=== PATIENT | male | born 1980 | race Caucasian/White ===

== ENCOUNTER 2016-10-28 11:31 | Inpatient (IN) | payer OTHER, MEDICARE ==
[~2016-10-28] VITALS: Ht 172.7 cm; Wt 98.4 kg
[~2016-10-28 11:31] MED LIST: ENULOSE 2020 GM/30 M PO; FOLIC ACID 1 MG PO; Nasal NAS; PRILOSEC20 MG PO; PRILOSEC40 MG PO; REGLAN10 MG PO; Theragran Vitamins PO; VITAMIN B1100 MG PO
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
[2016-10-28 12:32] LABS: ABSOLUTE BASOPHIL COUNT 0 /CUMM (0.0-0.2); ABSOLUTE EOSINOPHIL COUNT 0.2 /CUMM (0.0-0.7); ABSOLUTE GRANULOCYTE CT 3.4 /CUMM (1.4-6.5); ABSOLUTE LYMPH COUNT 1.5 /CUMM (1.2-3.4); ABSOLUTE MONOCYTE COUNT 0.7 /CUMM (0.10-0.60); BASOPHIL % 0.8 % (0.0-2.0); EOSINOPHIL % 2.7 % (0-5); GRANULOCYTE % 58.2 % (42.2-75.2); HEMATOCRIT 45.9 % (42-52); MEAN CORPUSCULAR HGB 34.4 PG (27.0-31.0); MEAN CORPUSCULAR HGB CONC 34.6 G/DL (33.0-37.0); MEAN CORPUSCULAR VOLUME 99.4 FL (80.0-94.0); MEAN PLATELET VOLUME 8.4 FL (7.4-10.4); PLATELET COUNT 115 /CUMM (130-400); RBC DISTRIBUTION WIDTH 14.3 % (11.5-14.5); RED BLOOD CELL CT 4.61 /CUMM (4.70-6.10); WHITE BLOOD CELL COUNT 5.8 /CUMM (4.8-10.8)
[2016-10-28 12:35] LABS: PT 14.3 SEC (9.4-12.5); PTT 36 SEC (25-37)
[2016-10-28 12:37] VITALS: BP 147/74
[2016-10-28 14:25] VITALS: BP 147/71
[2016-10-28] MEDS ORDERED: TRAZODONE HCL50 M1 PO (15:21)
[2016-10-28] MEDS ORDERED: PROZAC20 M2 PO (15:22)
[2016-10-28 16:38] VITALS: BP 139/67
[2016-10-28 18:04] VITALS: BP 152/70
[2016-10-28 20:00] VITALS: BP 147/73
--- NOTE | 2016-10-28 20:28 | ED PSYCH CRISIS CONSULTATION ---
See Addendum Crisis Consult Basic Assessment Date of Consult: 10/28/16 Responsible Person/Accompanied By: Self Insurance Authorization: Insurance #1: Insurance name: MEDICARE A Phone number: Policy number: [id number] Group number: Authorization number: ED Provider: Patient's ED Provider: MARGE RED Primary Care Physician: Patient's PCP: PATIENT HAS NO PRIMARY CARE DR PCP's Phone Number: Current Psychiatrist: Mike Cruz MD Chief Complaint: Sore Throat, Dental Pain," I want to kill myself" Patient's Quote: " I dont want to live anymore" Present Illness: Patient is a 36-year-old male who initally prsented to the E.R. complaining of dental pain. Pt reports that he has had severe dental pain for the past 1.5 weeks and removed the tooth himself using a hammer screwdriver. He reports going to the E.R. x2 for the tooth pain. Pt reports drinking Alcohol to numb the pain in his month. He reports drinking serveral nips of Alcohol about (1) week ago after leaving [facility] in [place], [place]. Pt is currently homeless. Pt reports a history of Alcohol Abuse and Depression and most recently treated at [facility] in [place]. He reports being treated with Prozac and unsure of the dose of the medication. 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 He presents to the E.R. tearful, depressed , sad, hopeless with suicide ideation to kill himself with plan to shoot himself with a gun " I will shoot myself or cut my kneck". Pt reports family history of brother commiting suicide in 2004 and a cousin in 2012 by shooting themselves. He reports having surgery for Cirrhosis of the liver. Patient's Address: [address] [place] [address] Other Phone Number: Who Do You Live With? Patient/Self (Homeless.) Family/Informants Interviewed: cannot be obtained due to (unable to contact father) Allergies - Coded Allergies: shellfish derived (Severe, THROAT SWELLING 10/28/16) latex (PER PT MD TOLD HIM HE MAY BE ALLERGIC TO LATEX 10/28/16) Current Medications - Scheduled Medications Fluoxetine HCl (Prozac) (Unknown Strength) CAPSULE (Unknown Dose) PO DAILY MENTAL HEALTH (Reported) Entered as Reported by MADISON THORNE on 10/28/16 1522 Trazodone HCl (Unknown Strength) TABLET (Unknown Dose) PO QPM SLEEP (Reported ) Entered as Reported by MADISON THORNE on 10/28/16 1521 Laboratory Results: Laboratory Tests 10/28/16 1218: Serum Alcohol 274.0 10/28/16 1218: Anion Gap 18 H, Estimated GFR > 60, BUN/Creatinine Ratio 8.6, Glucose 98, Calcium 8.0 L, Total Bilirubin 3.4 H, AST 151 H, ALT 89 H, Alkaline Phosphatase 90, Total Protein 6.8, Albumin 3.7, Globulin 3.1, Albumin/Globulin Ratio 1.2, Lipase 312 H, PT 14.3 H, INR 1.37 H, APTT 36, CBC w Diff NO MAN DIFF REQ, RBC 4.61 L, MCV 99.4 H, MCH 34.4 H, RDW 14.3, MPV 8.4, Gran % 58.2, Lymphocytes % 26.7, Monocytes % 11.6 H, Eosinophils % 2.7, Basophils % 0.8, Absolute Granulocytes 3.4, Absolute Lymphocytes 1.5, Absolute Monocytes 0.7 H, Absolute Eosinophils 0.2, Absolute Basophils 0, PUBS MCHC 34.6, Urine Opiates Screen < 100.00, Methadone Screen < 40, Barbiturate Screen < 60, Ur Phencyclidine Scrn < 6.00, Amphetamines Screen < 100, U Benzodiazepines Scrn < 85, Urine Cocaine Screen < 50, Urine Cannabis Screen < 5.00, Urinalysis LIGHT H , Urine Color YEL, Urine Clarity CLEAR, Urine pH 7.0, Ur Specific [place] <= 1.005, Urine Protein NEG, Urine Ketones NEG, Urine Nitrite NEG, Urine Bilirubin NEG, Urine Urobilinogen 1.0, Ur Leukocyte Esterase NEG, Ur Microscopic SEDIMENT EXAMINED, Urine RBC RARE, Urine WBC RARE, Ur Epithelial Cells RARE, Urine Hemoglobin TRACE-LYSED H, Urine Glucose NEG (MICHEALMATILDE STRAUSS) Past History Past Medical History Neurological: NONE EENT: NONE Cardiovascular: hypertension Respiratory: NONE Gastrointestinal: lower GI bleed, pancreatitis, umbilical hernia Hepatic: cirrhosis, hepatic encephalopathy Renal: NONE Musculoskeletal: NONE Psychiatric: alcohol dependence, anxiety, depression, substance abuse Endocrine: hypothyroidism Blood Disorders: NONE Cancer(s): 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 Psychiatric Treatment History Psych Treatment Psychiatric Treatment Yes Inpatient Treatment No Outpatient Treatment Yes ([facility] [place] Location of Treatment [place] Reason for Treatment Depression and Alcohol. Dates of Treatment 08/03 to 11/04 Response to Treatment poor Diagnosis by History: Depression Unpecified Substance Use/Abuse History Drug Use/Abuse Substances Used/Abused Yes Substance Used/Abused Alcohol First Use 13 year old Last Used today How much used/taken (2) nips How often daily For how long for (1) week Route of use oral Substance Abuse Treatment Substance Abuse Treatment Past Substance Abuse [place] Yes Inpatient Treatment Yes Outpatient Treatment Yes Location of Treatment [place] Reason for Treatment Alcohol and Depression Dates of Treatment 2011 Response to Treatment poor Comments: Pt presents to the E.R. depressed, sad, tearful with thoughts of suicide to kill himself" " I will shoot myself or cut my kneck" (MATILDE SMITH) Current Mental Status Mental Status Orientation: Person, Place, Situation Affect: Depressed, Hopeless, Lonely, Sad Speech: WNL Neuro-vegetative: Appetite Decreased, Energy Decreased Appearance Appearance- Dress/Hygiene: dressed in hospital clothing Behaviors Thought Process: WNL Thought Content: WNL Memory: WNL Insight: Poor SI/HI Risk Assessment Past Suicidal Ideation/Attempts Yes Current Suicidal Ideation/Att Yes Past Homicidal Ideation/Att: No Current Homicidal Ideation/Attempts No Degree of Intent: Made Preparations, Plan, States Intent (" I will shoot myself ") Danger To: Self Gravely Disabled: Lack of Insight, Poor Impulse Control, Poor Judgment Risk Factors: age (under 24/over 65), high anxiety/distress, substance abuse, isolate/no social support, poor impulse control, lives alone, male, limited support Lethality Ratin PTSD Checklist PTSD Score: PTSD Score: Response Value Disturbing memories,thoughts,images of stressful experience? Not at all 1 Disturbing dreams of stressful experience from past? Not at all 1 Suddenly acting/feeling as if reliving stressful experience? Not at all 1 Total 3 PTSD Done? patient declined ED Management Sitter: Yes Restraints: No (MATILDE SMITH) DSM5/PS Stressors/Medical Prob Diagnosis' (DSM 5, Stressors, Medical): Major Depression Unspecified F32.9, Hypertension I10, Alcohol Abuse F10.1 Current GAF: 22 Comments: Pt presents to ER dressed with with plan to shoot self with gun, and Alcohol Abuse (MATILDE SMITH) Departure Disposition Psych Medical Clearance Date: 10/28/16 Medically Cleared at: 1914 Time Started: 1914 Time Ended: 2014 Psychiatrist Consulted: Mike Cruz MD Date Disposition Established: 10/28/16 Time Disposition Established: 2014 Plan for Disposition - Modality: Bed Search Facility: Bed search Rationale for Disposition: Pt presented to the E.R. depressed, sad, tearful, and hopeless with plan to shoot himself with a gun. Referrals PATIENT HAS NO PRIMARY CARE DR (PCP/Family) (MATILDE SMITH) Addendum Addendum Consulted with Dr. Ordoñez pt to be admitted to [facility] for si and depression. (HAMILTON BURGOS,DIANNA)
--- NOTE | 2016-10-28 20:31 | ED PSY CRISIS COLLATERAL NOTE ---
Collateral Note Collateral Note Family/Inform/Jennifer Contacts: This clinician caalled father serveral times with no answer at [phone] provided on te face sheet. Pt reports no other contact with family or friends.
[2016-10-28 22:11] VITALS: BP 150/74
[2016-10-29] VITALS (9 sets, daily range): BP systolic 118–153; BP diastolic 60–90
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
[2016-10-30] VITALS (12 sets, daily range): BP systolic 112–152; BP diastolic 56–80
--- NOTE | 2016-10-30 13:03 | CPS MD/APRN INITIAL ASSE PSYCH ---
Psychiatric Admission Lawn Care Specialist's Note Reviewed: Yes Patient Seen and Examined: Yes Identifying Information: Pt is a 36 year old male. Chief Complaint: As per Crisis, patient stated: " I dont want to live anymore." Reaction to Hospitalization: Patient was found in the unit today asleep in bed, easily arousable to verbal stimuli at approx 10:30am. Calm, and cooperative. History of Present Illness Onset of Illness: As per patient, intermittent suicidal ideation following his brother's suicide in 2003. Alcohol abuse since age 13. Circumstances Leading to Admission: Pt arrived to the ER complaining of dental pain, and told a nurse he was feeling more depressed and had thoughts of hurting himself. Problem(s) Justifying Need for Admission: Suicidal comments in the ER. Self report of depression and past traumas. Past Psychiatric History Past Diagnosis(es)- if any: Depression EtOH abuse. Past Precipitating Factors- if any: Suicides of many family members. Alcoholism common among his family members. Last year spent in [place] [facility], multiple arrests for domestic issues between him and his mother. - Include inpatient and outpatient treatment Treatment History: [facility] IOP in [place] until recently. At this time the patient refuses to sign a disclosure waiver for [facility]. History of Suicide Attempts or Gestures Denies. Substance Abuse History: EtOH abuse since age 13. HX of Cocaine abuse Allergies: Coded Allergies: shellfish derived (Severe, THROAT SWELLING 10/28/16) latex (PER PT MD TOLD HIM HE MAY BE ALLERGIC TO LATEX 10/28/16) Home Med List: Prozac Trazodon - Include any medical condition(s) that may - impact the patient's recovery/remission Past History Medical History Neurological: NONE EENT: NONE Cardiovascular: hypertension Respiratory: NONE Gastrointestinal: lower GI bleed, pancreatitis, umbilical hernia, ESOPHAGEAL VARICES Hepatic: cirrhosis, hepatic encephalopathy Renal: NONE Musculoskeletal: NONE Psychiatric: alcohol dependence, anxiety, depression Endocrine: hypothyroidism Blood Disorders: NONE Cancer(s): NONE 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 Depression common in family. Substance Use: EtOH and polysubstance abuse common in family, including his mother. Suicides: Brother in 2003; Cousin and aunt; Mother at least one attempt. Social History Living Situation: Currently homeless. States he is moving into a new apartment on November 02. Significant Relationships (family/friends): States he has some friends, but no significant supports. Disfunctional relationship with his mother. Education: P2 plumbing license. 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 Legal: Recently released from one year in [place] [facility], currently on probation. Healthly Behaviors Screening Tobacco Screening Tobacco Use from ED Docu: Never used - If tobacco counseling indicated - the following topics are required. - #1 Recognizing dangerous situations. - #2 Coping Skills. - #3 Basic information about quitting. Status of Tobacco Cessation Counseling: N/A B/C NO TOB USE Cessation Med Status: No Tobacco Use last 30d Alcohol Screening - ETOH screen POS if BAL >=80 or Audit-C>= M4/F3 Audit-C Score from Diag Assess: 10 Blood Alcohol Level: Laboratory Tests 10/28 1218 Toxicology Serum Alcohol (<10 MG/DL) 274.0 Alcohol Use Screening Results: Pos per Audit C &/or BAL - If ETOH counseling indicated - the following topics are required. - #1 Express concern about the patient's - drinking at unhealthy levels, include informing - of national norms for moderate drinking: - men <= 14 drinks/week, max 4 drinks/occasion - women <= 7 drinks/week, max 3 drinks/occasion - #2 Providing feedback, including linking alcohol to - negative physical effects (liver injury, hypertension) - negative emotional effects (relationship problems and - depression) - negative occupational consequences (reduced work - performance) - #3 Advising the patient to abstain from alcohol or - to drink below national norms for moderate drinking - (as listed above). Status of ETOH Use Counseling: #1, #2 AND #3 Completed. Metabolic Screening - Screen if on a Neuroleptic Medication - Metabolic screening should include: - Blood Pressure, BMI, Glucose or Hgb A1c, & a - Lipid profile from within the past 365 days. Metabolic Screening ([x]) Not Applicable, patient not on a neuroleptic. OR () Patient on a neuroleptic(s) . Enter below results for Glucose or Hemoglobin A1C, and lipid panel if obtained during the last 365 days. BMI: 33.000 Blood Pressure: 152/80 Laboratory Results (If applicable): Exam and Plan Mental Status Examination Ambulation Status: Ambulates independently with steady gait. Appearance: Disheveled, malodorous. Attitude towards examiner: Calm and cooperative. Psychomotor activity: Within normal limits Behavior: Calm and cooperative Quality of speech: Speech is well articulated, goal directed, average in rate volume and tone. Affect: Congruent Mood: Somewhat sad. Quiet. Suicidal Ideation: Patient denies suicidal ideation at this time. He reports a history of intermittent suicidal ideation. States that in the emergency department his suicidal comments were directly related to his suffering from dental pain. Homicidal Ideation: Denies Hallucinations: Denies Paranoid/Delusional Material: Denies Difficulties with thought organization: Thoughts appeared clear Insight: Fair/poor. Judgment: Poor. Orientation: Alert and oriented to person, place and time. Cognition: Within normal limits Memory Function: Appears within normal limits, not tested. Estimate of intellectual functioning: Below average. Assets/Strengths Patient Identified Assets/Strengths: "I'm reading better." Impression/Plan Impression and Plan: This is a 36-year-old, currently unemployed and homeless man presented to the emergency department complaining of dental pain, and stated to the ER staff that he was suicidal. He has a long history of alcohol abuse, unknown history of cocaine abuse. He has suffered through the suicides of at least 4 close family members, including his brother in 2003. His medical history is significant for pancreatitis, cirrhosis, hepatic encephalopathy, hypertension, and hypothyroidism. Patient states that his last drink of alcohol was just prior to his arrival in the ED. Patient currently being medicated with Lexapro for depression and anxiety, trazodone at night for sleep. Consider mood stabilizer. Ativan taper for EtOH withdrawal. CIWA triggered prn Ativan. Continue to monitor and evaluate. - Include all active medical diagnosis that require tx DSM 5 Diagnosis(es): Major Depression Unspecified I10, Alcohol Abuse F10.1 Rule out mood disorder. - Initial Tx Plan for Active Psych & Medical Conditions Treatment Plan: PLAN: The patient will be monitored on the unit for safety, suicidal ideation, depression, mood stability, alcohol withdrawal. Additional information is needed from collaterals, at this time the patient states that he has no friends or family whom he would invite to a family meeting. Anticipate once clinically stable, that the patient will be discharged to home and family and be referred to IOP. - Factors that would help patient function - in a less restrictive setting. Factors: Alleviation of depression and no longer having suicidal thoughts.
--- NOTE | 2016-10-30 15:04 | History & Physical ---
General Information and HPI MD Statement: I have seen and personally examined VITA LOYD and documented this H&P. The patient is a 36 year old M who presented with a patient stated chief complaint of tooth pain, feeling depressed and wants to hurt himself Source of Information: patient Exam Limitations: no limitations History of Present Illness: 36-year-old male with past medical history as stated and includes hypertension, cirrhosis, hepatic encephalopathy, pink otitis, anxiety, depression who presented with the tooth pain. Apparently patient has been having some tooth issues but unfortunately secondary to not having insurance would not seek any dental care. He tried to put his tooth with a hammer. He presented to the emergency room with the pain and then said that he was feeling depressed and wanted to hurt himself. He is admitted to Inpatient Psychiatry with depression as well as suicidal ideation. He can claims that he's having difficulty urinating. He denies any burning. He still has some tooth pain but not taking any pain medications at present. His LFTs are very abnormal. He denies any nausea, vomiting, fevers or chills. Allergies/Medications Allergies: Coded Allergies: shellfish derived (Severe, THROAT SWELLING 10/28/16) latex (PER PT MD TOLD HIM HE MAY BE ALLERGIC TO LATEX 10/28/16) Home Med list Fluoxetine HCl (Prozac) (Unknown Strength) CAPSULE (Unknown Dose) PO DAILY MENTAL HEALTH (Reported) Trazodone HCl (Unknown Strength) TABLET (Unknown Dose) PO QPM SLEEP (Reported ) Past History Travel History Traveled to [place] past 21 day No Medical History Neurological: NONE EENT: NONE Cardiovascular: hypertension Respiratory: NONE Gastrointestinal: lower GI bleed, pancreatitis, umbilical hernia, ESOPHAGEAL VARICES Hepatic: cirrhosis, hepatic encephalopathy Renal: NONE Musculoskeletal: NONE Psychiatric: alcohol dependence, anxiety, depression Endocrine: hypothyroidism Blood Disorders: NONE Cancer(s): NONE 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 Psychosocial History Where do you live? 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 EENTM: Reports: see HPI. Cardiovascular: Reports: see HPI. Respiratory: Reports: see HPI. GI: Reports: see HPI. Genitourinary: Reports: see HPI. Musculoskeletal: Reports: see HPI. Skin: Reports: see HPI. Neurological/Psychological: Reports: see HPI. Exam & Diagnostic Data Last 24 Hrs of Vital Signs/I&O Vital Signs Date Time Temp Pulse Resp B/P Pulse O2 O2 Flow FiO2 Ox Delivery Rate 10/30 1207 95 152/80 10/30 1206 95 152/80 10/30 1004 86 136/73 10/30 0809 97.8 82 150/79 10/30 0755 97.8 82 150/79 10/30 0547 78 112/56 10/30 0249 72 120/62 10/29 2356 67 118/60 10/29 215 96.3 70 153/90 10/29 2152 96.3 70 153/90 10/29 2009 96.8 72 135/84 10/29 1942 96.8 72 135/84 10/29 1827 97.6 81 139/75 10/29 1640 97.0 76 131/78 10/29 1558 96.8 67 20 149/75 10/29 1539 96.8 67 20 149/75 97 Room Air Intake & Output 10/30 1600 10/30 0800 10/30 0000 Intake Total Output Total Balance Patient 217 lb Weight Physical Exam General Appearance Alert, Oriented X3, Cooperative, No Acute Distress Skin No Rashes, + tattoos HEENT Atraumatic, PERRLA Neck Supple Cardiovascular Regular Rate, Normal S1, Normal S2 Lungs Clear to Auscultation Abdomen Normal Bowel Sounds, Soft, No Tenderness Neurological Exam Findings: Normal Gait, Normal Speech Cranial Nerves II through XII: intact Extremities No Edema Last 24 Hrs of Labs/Ronen: Laboratory Tests 10/28 10/28 1218 1218 Chemistry Sodium (137 - 145 mmol/L) 140 Potassium (3.5 - 5.1 mmol/L) 3.6 Chloride (98 - 107 mmol/L) 100 Carbon Dioxide (22 - 30 mmol/L) 22 Anion Gap (5 - 16) 18 H BUN (9 - 20 mg/dL) 6 L Creatinine (0.7 - 1.2 mg/dL) 0.7 Estimated GFR (>60 ml/min) > 60 BUN/Creatinine Ratio (7 - 25 %) 8.6 Glucose (65 - 99 mg/dL) 98 Calcium (8.4 - 10.2 mg/dL) 8.0 L Total Bilirubin (0.2 - 1.3 mg/dL) 3.4 H AST (17 - 59 U/L) 151 H ALT (21 - 72 U/L) 89 H Alkaline Phosphatase (< 127 U/L) 90 Total Protein (6.3 - 8.2 g/dL) 6.8 Albumin (3.5 - 5.0 g/dL) 3.7 Globulin (1.9 - 4.2 gm/dL) 3.1 Albumin/Globulin Ratio (1.1 - 2.2 %) 1.2 Lipase (23 - 300 U/L) 312 H TSH (0.270 - 4.200 uIU/mL) 1.140 Coagulation PT (9.4 - 12.5 SEC) 14.3 H INR (0.90 - 1.17) 1.37 H APTT (25 - 37 SEC) 36 Hematology CBC w Diff NO MAN DIFF REQ WBC (4.8 - 10.8 /CUMM) 5.8 RBC (4.70 - 6.10 /CUMM) 4.61 L Hgb (14.0 - 18.0 G/DL) 15.9 Hct (42 - 52 %) 45.9 MCV (80.0 - 94.0 FL) 99.4 H MCH (27.0 - 31.0 PG) 34.4 H RDW (11.5 - 14.5 %) 14.3 Plt Count (130 - 400 /CUMM) 115 L MPV (7.4 - 10.4 FL) 8.4 Gran % (42.2 - 75.2 %) 58.2 Lymphocytes % (20.5 - 51.1 %) 26.7 Monocytes % (1.7 - 9.3 %) 11.6 H Eosinophils % (0 - 5 %) 2.7 Basophils % (0.0 - 2.0 %) 0.8 Absolute Granulocytes (1.4 - 6.5 /CUMM) 3.4 Absolute Lymphocytes (1.2 - 3.4 /CUMM) 1.5 Absolute Monocytes (0.10 - 0.60 /CUMM) 0.7 H Absolute Eosinophils (0.0 - 0.7 /CUMM) 0.2 Absolute Basophils (0.0 - 0.2 /CUMM) 0 PUBS MCHC (33.0 - 37.0 G/DL) 34.6 Toxicology Urine Opiates Screen (>2000 NG/ML) < 100.00 Methadone Screen (>300 NG/ML) < 40 Barbiturate Screen (>200 NG/ML) < 60 Ur Phencyclidine Scrn (>25 NG/ML) < 6.00 Amphetamines Screen (>1000 NG/ML) < 100 U Benzodiazepines Scrn (>200 NG/ML) < 85 Urine Cocaine Screen (>300 NG/ML) < 50 Urine Cannabis Screen (>50 NG/ML) < 5.00 Serum Alcohol (<10 MG/DL) 274.0 Urines Urinalysis LIGHT H Urine Color (YEL,AMB,STR) YEL Urine Clarity (CLEAR) CLEAR Urine pH (5.0 - 8.0) 7.0 Ur Specific [place] (1.001 - 1.035) <= 1.005 Urine Protein (NEG,<30 MG/DL) NEG Urine Ketones (NEG) NEG Urine Nitrite (NEG) NEG Urine Bilirubin (NEG) NEG Urine Urobilinogen (0.1 - 1.0 EU/dl) 1.0 Ur Leukocyte Esterase (NEG) NEG Ur Microscopic SEDIMENT EXAMINED Urine RBC (0 - 5 /HPF) RARE Urine WBC (0 - 2 /HPF) RARE Ur Epithelial Cells (NONE,FEW) RARE Urine Hemoglobin (NEG) TRACE-LYSED H Urine Glucose (N MG/DL) NEG Assessment/Plan Assessment: 36-year-old male who has a past medical history significant for cirrhosis, pancreas, alcohol use, anxiety, depression, GI bleed, hepatic encephalopathy who was admitted with depression as well as suicidal ideation. Patient was actively drinking alcohol. He also has some dental issues. Lab work is consistent with very abnormal LFTs. I would repeat the LFTs and check abdominal ultrasound. Patient complains of difficulty urination, I will add Flomax. Patient has been started on multivitamin, folate and thiamine Ativan for alcohol. He has ibuprofen ordered for tooth pain but he has not required any. He has a slightly high blood pressure, he was complaining of some pain therefore it could be secondary to pain. I encouraged him to take the pain medicine as needed. I would monitor his blood pressure for now. I will follow-up on ultrasound as well as his repeat LFTs in the morning. Psych management as per psych. As Ranked By This Provider Problem List: 1. ALCOHOLIC PANCREATITIS 2. Alcoholic cirrhosis 3. Depression 4. Alcohol abuse 5. Depression 6. Cirrhosis of liver 7. Pancreatitis Miscellaneous Miscellaneous Documentation Attending Case Discussed With: Lexi Montes MD Primary Care Physician: PATIENT HAS NO PRIMARY CARE DR Patient sees these Specialists none Level of Patient Care: JESSICA Barksdale
[2016-10-31] VITALS (8 sets, daily range): BP systolic 118–155; BP diastolic 65–86
--- NOTE | 2016-10-31 09:35 | ULTRASOUND REPORT ---
EXAMINATION: US ABDOMEN LIMITED CLINICAL INFORMATION: Abnormal LFTs. COMPARISON: CT abdomen pelvis 07/18/2015 and abdominal ultrasound 06/28/2015 TECHNIQUE: Real-time imaging of the right upper quadrant abdominal viscera. FINDINGS: PANCREAS: Visualized portions of the pancreas are normal in appearance. LIVER: Poor liver penetration, limiting the examination. There is diffusely increased echogenicity, most suggestive of hepatic steatosis. No intrahepatic biliary duct dilatation. GALLBLADDER: The gallbladder is physiologically distended without evidence of stones, sludge, polyps, wall thickening or pericholecystic fluid. COMMON BILE DUCT: Normal in caliber measuring 0.45 cm in diameter. RIGHT KIDNEY: No hydronephrosis. No renal calculi or focal parenchymal lesions. The kidney measures 11.4 cm in maximum dimension. FREE FLUID: None. IMPRESSION: 1. Poor liver penetration, limiting the examination. There is diffusely increased echogenicity, most suggestive of hepatic steatosis. 2. The gallbladder is normal in appearance without evidence of gallstones, gallbladder wall thickening or pericholecystic fluid.
--- NOTE | 2016-10-31 16:56 | CP SOUTH PROGRESS NOTE PSYCH ---
Psych (Inpt) Progress Note Progress Note Progress Note: I discussed this patient's progress to date, current mental status, treatment process in the context of the treatment plan, and discharge planning with staff/ team in the daily morning inpatient team meeting. I also met with the patient myself in individual session. A total of 15 minutes was spent with the patient with more than 50% spent in counseling and/or coordination of care. SUBJECTIVE: "I just needed a dentist." OBJECTIVE: Current Medications Sig/Zafar Start time Last Medication Dose Route Stop Time Status Admin Escitalopram Oxalate 10 MG DAILY 10/30 1000 AC 10/31 PO 0942 Folic Acid 1 MG DAILY 10/29 1806 AC 10/31 PO 0942 Ibuprofen 400 MG 4 TIMES/DAY PRN 10/29 1815 AC 10/30 PO 1338 Lorazepam 1 MG 0800,1300,2200 10/31 0800 AC 10/31 PO 1328 Lorazepam 1 MG Q1 NEEDED PRN 10/29 1815 AC 10/31 PO 1619 Lorazepam 2 MG Q1 NEEDED PRN 10/29 1815 AC PO Lorazepam 1 MG 4 TIMES/DAY 10/29 1804 DC 10/30 PO 10/30 2300 2150 Multivitamins 1 TAB DAILY 10/30 1000 AC 10/31 PO 0942 Tamsulosin HCl 0.4 MG DAILY 10/30 1310 AC 10/31 PO 0942 Thiamine HCl 100 MG DAILY 10/29 180 AC 10/31 PO 0942 Trazodone HCl 50 MG AT BEDTIME NEED.. 10/29 2200 AC PO Laboratory Tests 10/31 10/31 1102 0534 Chemistry Total Bilirubin (0.2 - 1.3 mg/dL) 2.4 H Direct Bilirubin (< 0.4 mg/dL) 1.2 H AST (17 - 59 U/L) 75 H ALT (21 - 72 U/L) 64 Alkaline Phosphatase (< 127 U/L) 91 Ammonia (9 - 30 umol/L) 56 H Total Protein (6.3 - 8.2 g/dL) 5.7 L Albumin (3.5 - 5.0 g/dL) 2.9 L Vital Signs Date Time Temp Pulse Resp B/P Pulse O2 O2 Flow FiO2 Ox Delivery Rate 10/31 1611 104 131/66 10/31 1532 104 131/66 10/31 1210 97 153/74 10/31 1158 97 153/74 10/31 0942 98 155/86 10/31 0848 Room Air 10/31 0749 96.8 98 155/86 10/31 0749 96.8 98 155/86 10/305 98 125/67 10/30 1999 98.2 83 146/74 10/30 1953 98.2 83 146/74 ASSESSMENT: Patient reports doing well, states that his major stressor right now is to find a dentist. He has been mostly isolating in his room, not participating in group activities. He continues to be in need of shower. When I suggested to him that he wash up and change his clothes he said that he would do that "later." States that he has an apartment which he can move into starting on November 02. He has a car here at the hospital, and has keys to the apartment. Patient is amenable to discharge after the weekend on Thursday. CIWA scores have been negative, however the patient has received Ativan once for heart rate above 100. No tremors or diaphoresis noted, he states that he is not having problems with alcohol withdrawal at this time. CIWA [id number] while awake continues. I reviewed the patient's current medications and today's ultrasound, in which she showed very little interest. Depression:0/10; Anxiety:0/10 (with 10 the worst.) Denies suicidal ideation, homicidal ideation, auditory hallucinations, visual hallucinations, paranoid ideation. Patient states and also believes that he will not kill himself. Speech is well articulated, goal-directed, average in rate, volume and tone. The patient understands the risks/benefits/side effects of the medication and is agreeable to continue taking them. PLAN: Anticipate discharge on Thursday. Continue with current management as patient is improving. Continue to provide support and encouragement.
--- NOTE | 2016-10-31 17:37 | SOCIAL WORKER PROG NOTE PSYCH ---
Social Work Progress Note Progress Note Alexis was in bed most of the day. He needed to be prompted up to meet with me. He said he is starting to feel better, but hadn't slept in days. He describes his tooth pain to be so unbearable that it was causing him to not sleep, eat, and he was having difficulty being around people and being in bright lights. His main issue appears to be the pain he is suffering from. He thought that if he got into the hospital, his tooth would be extracted. He said he has tried getting in places to get his tooth pulled, but no one would give him an appt., stating he didn't have insurance. He has Medicare A/B and [employer] [facility]. I told him we could try and help him find a place that would take his insurance. He talked about starting to drink more because he couldn't take the pain. He was drinking about a pint or a 6 pack. He didn't seem too sure. He has some involvement with and has been in rehab in the past. Last placement was [facility] a couple of years ago. 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 He didn't want to get into the details of why other than stating it was for things that happened with his Mom. His Mother and him do not have a good relationship, but he states that's not what is bothering him the most at this time. He identifies some work stressors and the tooth pain as the most significant issues. He has an apartment secured in [place]. He reports that it is all paid for and he can move in after the . He is open to going to our [facility] evening track.
[2016-11-01] VITALS (7 sets, daily range): BP systolic 125–148; BP diastolic 64–76
--- NOTE | 2016-11-01 15:04 | CP SOUTH PROGRESS NOTE PSYCH ---
Psych (Inpt) Progress Note Progress Note Include the following elements, when applicable: Involvement in the active treatment of the patient with behavioral observations of the patient and the patient's response to the treatment. Review of the ongoing treatment process in the context of the treatment plan. Indication of how multi-disciplinary staff members are carrying out the treatment plan. Plans for future interventions and recommendations for revision of the treatment plan. Liaison with other physicians/providers. Progress Note: Stated that he is fine and that his tooth pain is somewhat better. happy that he found out he has insurance and planning on getting to dentist and oral surgeon on discharge to manage his sx. Stated that he didnt mean to threaten suicide. Minimizing circumstances surrounding his admission, past hx of tx. Isolative in room. Sleeping well overall. Stated that he is not interested in calling family, or interacting w/ peers or staff on the unit. MSE: Young man, lying in bed, did not want to get out. Well related overall. No psychomotor agitation/slowing. Speech wnl. Good eye contact. Mood is neutral and affect is full. Thought process is linear. No delusions elicited. Denied suicidal thoughts. Denied hallucinations. Not distressed; guarded or otherwise presenting w/ severe depressive or any psychotic sx; but is mildly anhedonic and nonchalant, isolative. Insight fair and judgment fair. A: 36 y/o man w/ hx alcohol use (significant w/ comorbid complications pancreatitis, cirrhosis, enceph, HTN); admitted after he made suicidal statements in context of severe pain and deprssive sx. Has significant alcohol use problem, and significant medical problems which are chronic risk factors for him. Remains isolative and mildly withdrawn. Plan: Continue current plan of care. Monitor withdrawal sx. No acute issues currently. Future oriented, well related and anticipate d/c Thursday this week.
--- NOTE | 2016-11-02 10:45 | CP SOUTH PROGRESS NOTE PSYCH ---
Psych (Inpt) Progress Note Progress Note Include the following elements, when applicable: Involvement in the active treatment of the patient with behavioral observations of the patient and the patient's response to the treatment. Review of the ongoing treatment process in the context of the treatment plan. Indication of how multi-disciplinary staff members are carrying out the treatment plan. Plans for future interventions and recommendations for revision of the treatment plan. Liaison with other physicians/providers. Progress Note: Stated that at night time he is not sleeping; but he is in bed all day time. Encouraged him to get out of bed during the day time; discussed sleep hygiene. Irritated about being here, stated that he just needs to get his tooth fixed. Sleeping excessively, appetite normal. No other issues. MSE: Young man, poor hygiene and grooming. Somnolent initially then awake and alert; w/o psychomotor slowing. Speech wnl. Fair eye contact. Mood is neutral and affect is full. Nonchalant, withdrawn somewhat. Thought process is linear. No delusions elicited. Denied suicidal thoughts, stating he was just in so much pain last time when he threatened suicide. Denied hallucinations, stated last time he was hallucinating was when was 1st dx w/ cirrhosis. Isolative in room, stated that he doesnt need to interact w/ peers. Insight fair and judgment fair. A: 36 y/o man w/ hx alcohol use (significant w/ comorbid complications pancreatitis, cirrhosis, enceph, HTN); admitted after he made suicidal statements in context of severe pain and deprssive sx. Has significant alcohol use problem, and significant medical problems which are chronic risk factors for him. Remains isolative and mildly withdrawn. Plan: Continue current plan of care. No acute issues currently. Educated about sleep hygiene. Anticipate d/c Thursday this week.
[2016-11-02 11:49] VITALS: BP 139/71
[2016-11-02 12:18] VITALS: BP 139/71
[2016-11-02 16:08] VITALS: BP 131/60
[2016-11-02 16:09] VITALS: BP 131/60
[2016-11-02 19:46] VITALS: BP 137/75
[2016-11-02 19:50] VITALS: BP 137/75
--- NOTE | 2016-11-02 20:42 | DISCHARGE SUMMARY REPORT-PSYCH ---
See Addendum Visit Information Visit Dates/Diagnosis' Admission Date: 10/29/16 Discharge Date: 11/03/16 Reason for Admission: Pt arrived to the ER complaining of dental pain, and told a nurse he was feeling more depressed and had thoughts of hurting himself. Psy Discharge Primary Diag: Major Depressive d/o, recurrent, severe. Psy Discharge Secondary Diag: Rule out mood disorder. ETOH use d/o, severe; HTN; Pancreatitis; cirrhosis; hx of hepatic encephalopathy; hx of lower GI bleed; hx of esophageal varices; umbilical hernia. Hospital Course Significant Lab Findings: Lab Ammonia 56 umol/L H 11/04/16 0609 Lab ALT 64 U/L 10/31/16 0534 AST 75 U/L H 10/31/16 0534 Albumin 2.9 g/dL L 10/31/16 0534 Ammonia 56 umol/L H 10/31/16 1102 Anion Gap 18 H 10/28/16 1218 BUN 6 mg/dL L 10/28/16 1218 Calcium 8.0 mg/dL L 10/28/16 1218 Creatinine 0.7 mg/dL 10/28/16 1218 Direct Bilirubin 1.2 mg/dL H 10/31/16 0534 Estimated GFR > 60 ml/min 10/28/16 1218 Lipase 312 U/L H 10/28/16 1218 TSH 1.140 uIU/mL 10/28/16 1218 Total Bilirubin 2.4 mg/dL H 10/31/16 0534 Total Protein 5.7 g/dL L 10/31/16 0534 INR 1.37 H 10/28/16 1218 PT 14.3 SEC H 10/28/16 1218 MCH 34.4 PG H 10/28/16 1218 MCV 99.4 FL H 10/28/16 1218 Monocytes % 11.6 % H 10/28/16 1218 Plt Count 115 /CUMM L 10/28/16 1218 RBC 4.61 /CUMM L 10/28/16 1218 Serum Alcohol 274.0 MG/DL 10/28/16 1218 Course Complications: The patient was noted to have elevated ammonia level, and was treated with lactulose. He will follow up with PCP. An abdominal ultrasound was performed for elevated LFTs. Please see Dr. Sandoval's note for further information. Consultations: The patient was seen for admission history and physical by Dr. Montes. Please refer to her note for additional information. Allergies: Coded Allergies: shellfish derived (Severe, THROAT SWELLING 10/28/16) latex (PER PT MD TOLD HIM HE MAY BE ALLERGIC TO LATEX 10/28/16) Hospital Course/TX Response: The patient was monitored on the unit for safety, depression, suicidal ideation, and EtOH withdrawal. He participated in multimodal treatments on the unit. He was medicated with Lexapro for depression and anxiety, which was well tolerated to good effect. He was offered Trazodone at bedtime for sleep, which he declined to take while here. He was medicated with an Ativan taper to discontinuation for alcohol withdrawal, which was well tolerated, to good effect. He declined a family meeting, stating that he had no one who he wished to invite. Today, the day of discharge, he reports he is doing well, offers no complaints today. Alert and oriented to person, place, time and situation. He is calm, cooperative and logical. Ambulates with steady gait. We reviewed his discharge instructions today, including follow-up medical appointments, which he said he would attend. States he feels safe and ready for discharge home. We reviewed his lab results including ammonia, patient states that he will continue to take lactulose once daily as per Dr. Montes, and follow up next week with primary care. Depression:0/10; Anxiety:0/10 (with 10 the worst.) Denies suicidal ideation, homicidal ideation, auditory hallucinations, visual hallucinations, paranoid ideation. Patient states and also believes that he will not kill himself. States he was not really suicidal when he arrived in the emergency department, but made suicidal statements in the context of severe dental pain. Today he says that his dental pain is much better, and is looking forward to following up with a dentist at the clinic at [facility]. Speech is well articulated, goal-directed, average in rate, volume and tone. The patient understands the risks/benefits/side effects of the medication and is agreeable to continue taking them. Patient reports tolerating his medications well, without complaint. States he feels safe and ready for discharge. Discharge HBIPS - Tobacco Use Treatment Offered Post DC Medications Offered: NA-No Tob Use >30 days Post DC Tobacco Treatment Plan: NA-No Tobacco use >30days - EtOH/Drug Use D/O Treatment Offered Post DC Medications Offered: Ref Med EtOH/Drug Use D/O Post DC EtOH/SubAbuse TX Plan: Other SubAbuse/Dual Pgm ([facility]) Program Appt Date: 11/04/16 Program Appt Time: 1200 (walk in from 9am - 2pm.) Metabolic Screening - Screen if on a Neuroleptic Medication - Metabolic screening should include: - Blood Pressure, BMI, Glucose or Hgb A1c, & a - Lipid profile from within the past 365 days. Metabolic Screening ([x]) Not Applicable, patient not on a neuroleptic. OR () Patient on a neuroleptic(s) . Enter below results for Glucose or Hemoglobin A1C, and lipid panel if obtained during the last 365 days. BMI: 33.000 Blood Pressure: 128/79 Laboratory Results (If applicable): Discharge Instructions General Discharge Information Discharge Medications: Discharge Medications- (Dose, route, freq, indication): HOME MEDICATION LIST START taking these NEW Home Medications: Ibuprofen Dose: ORAL, EVERY 4 HOURS Qty: 56 Called in to (Ibuprofen) 400 MG 400 Milligram NEEDED as needed for PAIN Refills: 0 Pharm 1 TABLET Last Taken:10/30/16 Time:1330 Escitalopram Oxalate Dose: ORAL, DAILY for Qty: 14 Called in to (Lexapro) 10 MG 10 Milligram DEPRESSION Refills: 0 Pharm 1 TABLET Last Taken:11/04/16 Time:0850 Trazodone HCl Dose: ORAL, AT BEDTIME for Qty: 14 Called in to (Trazodone HCl) 50 50 Milligram DEPRESSION AND SLEEP Refills: 0 Pharm 1 MG TABLET not taken in hospital Multivitamin (One Dose: ORAL, DAILY for Qty: 30 Called in to Daily Multivitamin) 1 Tablet SUPPLEMENT Refills: 0 Pharm 1 1 EACH TABLET Last Taken:11/04/16 Time:0850 Tamsulosin HCl Dose: ORAL, DAILY for Urinary Qty: 14 Called in to (Flomax) 0.4 MG 0.4 Milligram Flow Refills: 0 Pharm 1 CAP.ER.24H Last Taken:11/04/16 Time:0850 Lactulose Dose: ORAL, DAILY for HIGH Qty: 7 Called in to (Lactulose) 20 GRAM/ 20 Gram AMMONIA Refills: 0 Pharm 1 30 ML SOLUTION Last Taken:11/04/16 Time:0850 STOP taking these DISCONTINUED Home Medications: Fluoxetine HCl (Prozac) Dose: ORAL, DAILY for MENTAL HEALTH (Unknown Strength) CAPSULE Unknown Dose Reason Stopped: Changed to different med 1: [facility] [place], [place] [id number] [facility] [id number] [place], [place] [id number] Multiple Neuroleptics: (x) Not Applicable OR Document below three failed attempts at monotherapy, or a plan to taper to monotherapy, or augmentation of Clozapine. () Patient's Diet: Regular Patient's Activity: No restrictions. DC Disposition: Patient is going home to his new apartment, where he lives on his own. Recommendations: Maintain sobriety. Follow up with primary care, [facility], GI, and dental clinic. Referred To: Post Discharge Referrals Provider Referral Referred To: Александр Marino MD [address] [place] [address] Provider Referral Service Date: 11/04/16 Referred To: [[facility]] Notes: [facility] [address] [place], [place] Walk in Intake appointment today between 9am and 2pm. Provider Referral Service Date: 11/10/16 Referred To: [[facility]] Notes: Dr. Fried - Primary Care [address] [place] [address] Dr [place] [phone] Appointment on 11/10/2016 at 8:00am Provider Referral Referred To: [[facility]] Notes: [facility] [address] [place] [phone] Copies To: DIEGO BERMUDEZ,ALESHIA Villar
[2016-11-03 07:41] VITALS: BP 133/68
[2016-11-03 07:51] VITALS: BP 133/68
--- NOTE | 2016-11-03 11:44 | SOCIAL WORKER PROG NOTE PSYCH ---
Social Work Progress Note Progress Note Met with Rick this morning, with Iam Lane APRN. I am covering for Fabiana Coates LCSW today. Lisa was in bed, but got up and met with us. He stated he has no SI/HI, no psychosis. He is eager to get back to work, and agreed to follow-up with [facility]. Expected discharge is . 11/04/16. Lisa is interested in follow-up with [facility] in [place]. He was at [facility] in [place] recently, and feels that may be best to attend their program (in [place]). [facility] has a "walk-in " intake . 11/04/16 between 9am and 2pm. Lisa was concerned about listing his diagnosis of alcohol use on his W10, and his minesweeping officer "finding out" about his relapse. Encouraged lisa to stay sober and attend [facility], AA meetings as the best course of action to get his probation issues resolved. Insight and judgement is poor. Lisa did state he is worried he will have to go back to intermediate. He wants a letter stating he was at the hospital upon discharge. [facility] Obtained [facility] appointment for 11/10/[address] Hope. Also, infomred Lisa he can go to [facility] (Clinic #[facility] - Dental) at [address] [place] [address] in [place], [place] for an emergency care for his tooth. Lisa seemed to agree with the above plan.
[2016-11-03 12:38] VITALS: BP 129/66
[2016-11-03 12:40] VITALS: BP 129/66
--- NOTE | 2016-11-03 12:54 | CP SOUTH PROGRESS NOTE PSYCH ---
Psych (Inpt) Progress Note Progress Note Progress Note: I discussed this patient's progress to date, current mental status, treatment process in the context of the treatment plan, and discharge planning with staff/ team in the daily morning inpatient team meeting. I also met with the patient myself in individual session. A total of 25 minutes was spent with the patient with more than 50% spent in counseling and/or coordination of care. SUBJECTIVE: "The only reason I came here was for the tooth pain." OBJECTIVE: Current Medications Sig/Zafar Start time Last Medication Dose Route Stop Time Status Admin Escitalopram Oxalate 10 MG DAILY 10/30 1000 AC 11/03 PO 0842 Folic Acid 1 MG DAILY 10/29 1806 AC 11/03 PO 0842 Ibuprofen 400 MG 4 TIMES/DAY PRN 10/29 1815 AC 10/30 PO 1338 Lactulose 20 GM BID 11/03 1127 AC PO Lorazepam 0.5 MG 0800 11/04 0800 UNVr PO 11/04 0801 Lorazepam 1 MG AT BEDTIME 11/03 2200 UNVr PO 11/03 2201 Lorazepam 1 MG 0800,1300,2200 10/31 0800 DC 11/03 PO 0843 Lorazepam 1 MG Q1 NEEDED PRN 10/29 1815 AC 10/31 PO 1619 Lorazepam 2 MG Q1 NEEDED PRN 10/29 1815 AC PO Multivitamins 1 TAB DAILY 10/30 1000 AC 11/03 PO 0842 Tamsulosin HCl 0.4 MG DAILY 10/30 1310 AC 11/03 PO 0842 Thiamine HCl 100 MG DAILY 10/29 1806 AC 11/03 PO 0842 Trazodone HCl 50 MG AT BEDTIME NEED.. 10/29 2200 AC PO Laboratory Tests 11/03 0603 Chemistry Ammonia (9 - 30 umol/L) 70 H Vital Signs Date Time Temp Pulse Resp B/P Pulse O2 O2 Flow FiO2 Ox Delivery Rate 11/03 1240 91 129/66 11/03 1238 91 129/66 11/03 0842 86 133/68 11/03 0751 97.1 86 133/68 11/03 0741 97.1 86 133/68 11/02 1950 97.6 97 137/75 11/02 1946 97.6 97 137/75 11/02 1609 84 131/60 11/02 1608 84 131/60 ASSESSMENT: Today I saw the patient together with social media project manager Sandra Adame LCSW. Today patient offers no complaints. As per nursing report patient has spent most of the past weekend isolating in his room. Has not been active in the community. This morning he is awake, alert and oriented 3, states he is tolerating his medications well. States that his main problem is that he needs to see a dentist, however his dental pain is "not bad" today. He is hoping for referral to a dentist on discharge. He continues on Ativan taper for alcohol withdrawal, no tremors, diaphoresis or other symptoms of alcohol withdrawal noted. Ammonia level noted to be elevated, and higher than before the weekend. Lactulose has been initiated by Dr. Montes. We encouraged the patient to engage in group and community activities today, to which he answered, "first I'm going to go take a nap." Depression:0/10; Anxiety:0/10 (with 10 the worst.) Denies suicidal ideation, homicidal ideation, auditory hallucinations, visual hallucinations, paranoid ideation. Patient states and also believes that he will not kill himself. States he made suicidal statements in the emergency room in the context of severe dental pain. Speech is well articulated, goal-directed, average in rate, volume and tone. Patient is disheveled and poorly groomed. The patient understands the risks/benefits/side effects of the medication and is agreeable to continue taking them. PLAN: Continue Ativan taper, which will conclude tomorrow. Anticipate discharge tomorrow. Patient will follow up with primary care, dental care, and [facility]. Patient has been encouraged to maintain sobriety and attend Alcoholics Anonymous. Patient is in agreement with this plan. Continue with current management as patient is improving. Continue to provide support and encouragement.
[2016-11-03 15:56] VITALS: BP 120/71
[2016-11-04 08:00] VITALS: BP 128/79
[2016-11-04 08:02] VITALS: BP 128/79
[2016-11-04 08:50] VITALS: BP 128/79
--- NOTE | 2016-11-04 08:53 | SOCIAL WORKER PROG NOTE PSYCH ---
Social Work Progress Note Progress Note Alexis was in bed this morning. Reviewed his discharge plans per Sandra Fang' s note who was filling in for me yesterday. Alexis stated he is going to the [facility] walk in evaluation today and will show up at the dental clinic at [facility] soon to get his tooth looked at. Stated he feels good and is ready to go. Discussed discharge with Iam Lane APRN who is waiting to get medical clearance due to a high ammonia level yesterday. Alexis was cleared to leave.
[2016-11-04] MEDS ORDERED: FLOMAX0.4 M1 PO (10:49)
[2016-11-04] MEDS ORDERED: IBUPROFEN400 M1 PO (10:50)
--- NOTE | 2016-11-04 10:50 | CP SOUTH PROGRESS NOTE PSYCH ---
Psych (Inpt) Progress Note Progress Note Progress Note: I discussed this patient's progress to date, current mental status, treatment process in the context of the treatment plan, and discharge planning with staff/ team in the daily morning inpatient team meeting. I also met with the patient myself in individual session. A total of 30 minutes was spent with the patient with more than 50% spent in counseling and/or coordination of care. SUBJECTIVE: "I'm fine, I'm ready to go home." OBJECTIVE: Current Medications Sig/Zafar Start time Last Medication Dose Route Stop Time Status Admin Escitalopram Oxalate 10 MG DAILY 10/30 1000 AC 11/04 PO 0851 Folic Acid 1 MG DAILY 10/29 1806 AC 11/04 PO 0850 Ibuprofen 400 MG 4 TIMES/DAY PRN 10/29 181 AC 10/30 PO 1338 Lactulose 20 GM BID 11/03 1127 AC 11/04 PO 0851 Lorazepam 0.5 MG 0800 11/04 0800 DC 11/04 PO 11/04 0801 0851 Lorazepam 1 MG AT BEDTIME 11/03 2200 DC 11/03 PO 11/03 2201 2224 Lorazepam 1 MG Q1 NEEDED PRN 10/29 1815 AC 10/31 PO 1619 Lorazepam 2 MG Q1 NEEDED PRN 10/29 1815 AC PO Multivitamins 1 TAB DAILY 10/30 1000 AC 11/04 PO 0851 Tamsulosin HCl 0.4 MG DAILY 10/30 1310 AC 11/04 PO 0850 Thiamine HCl 100 MG DAILY 10/29 1806 AC 11/04 PO 0850 Trazodone HCl 50 MG AT BEDTIME NEED.. 10/29 2200 AC PO Laboratory Tests 11/04 0609 Chemistry Ammonia (9 - 30 umol/L) 56 H Vital Signs Date Time Temp Pulse Resp B/P Pulse O2 O2 Flow FiO2 Ox Delivery Rate 11/04 0850 96.5 78 128/79 11/04 0802 96.5 78 128/79 11/04 0800 96.5 78 128/79 11/03 1556 83 120/71 11/03 1556 83 120/71 11/03 1240 91 129/66 11/03 1238 91 129/66 ASSESSMENT: Patient reports he is doing well, offers no complaints today. Alert and oriented to person, place, time and situation. He is calm, cooperative and logical. Ambulates with steady gait. We reviewed his discharge instructions today, including follow-up medical appointments, which he said he would attend. States he feels safe and ready for discharge home. We reviewed his lab results including ammonia, patient states that he will continue to take lactulose once daily as per Dr. Montes, and follow up next week with primary care. Depression:0/10; Anxiety:0/10 (with 10 the worst.) Denies suicidal ideation, homicidal ideation, auditory hallucinations, visual hallucinations, paranoid ideation. Patient states and also believes that he will not kill himself. States he was not really suicidal when he arrived in the emergency department, but made suicidal statements in the context of severe dental pain. Today he says that his dental pain is much better, and is looking forward to following up with a dentist at the clinic at [facility]. Speech is well articulated, goal-directed, average in rate, volume and tone. The patient understands the risks/benefits/side effects of the medication and is agreeable to continue taking them. PLAN: Discharged today. Will follow-up at [facility] practice, GI, and dentist. States he will maintain sobriety. Continue with current management as patient is improving. Continue to provide support and encouragement.
[2016-11-04] MEDS ORDERED: LEXAPRO10 M1 PO (10:51)
[2016-11-04] MEDS ORDERED: TRAZODONE HCL50 M1 PO (10:52)
[2016-11-04] MEDS ORDERED: LACTULOSE20 GM/30 M PO (10:52)
[2016-11-04] MEDS ORDERED: ONE DAILY MULT1 EAC2 PO (10:53)
== END 2016-11-04 11:23 | DRG 885 ==
LOC: ENRESERVDT → ENRESERVTM → ERH 11:31 → ERHI 10-29 10:58 → CP SOUTH 10-29 10:58 → EDBEDREQ 10-29 11:37 → CP SOUTH 10-29 16:35
PROVIDERS: Physician Assistant; ADMIT Psychiatry & Neurology Psychiatry
DX: F33.2 Major depressive disorder, recurrent severe without psychotic features (principal); K85.90 Acute pancreatitis without necrosis or infection, unspecified; K74.60 Unspecified cirrhosis of liver; F10.20 Alcohol dependence, uncomplicated; Z72.89 Other problems related to lifestyle; I10 Essential (primary) hypertension; K42.9 Umbilical hernia without obstruction or gangrene
CPT/HCPCS: 36415; 80307; 81001; 90714; 96374; 96375; 96376; G0463; G0480; J2405; J2550; J3490; Q2036

== ENCOUNTER 2016-11-27 10:05 | Emergency (ER) | payer OTHER, MEDICARE ==
[~2016-11-27] VITALS: Ht 172.7 cm; Wt 99.8 kg
[~2016-11-27 10:05] MED LIST changes: +FLOMAX0.4 M1 PO; +IBUPROFEN400 M1 PO; +LACTULOSE20 GM/30 M PO; +LEXAPRO10 M1 PO; +ONE DAILY MULT1 EAC2 PO; +PROZAC20 M2 PO; +TRAZODONE HCL50 M1 PO
--- NOTE | 2016-11-27 10:18 | ED GENERAL ADULT ---
History of Present Illness General Chief Complaint: General Adult Stated Complaint: MULTIPLE COMPLAINTS (ABD PAIN,ETOH,SLEEPING IN CAR Source: patient, EMS Exam Limitations: poor historian Vital Signs & Intake/Output Vital Signs & Intake/Output Vital Signs Date Time Temp Pulse Resp B/P Pulse O2 O2 Flow FiO2 Ox Delivery Rate 11/27 1717 98.4 76 16 134/70 98 Room Air 11/27 1556 97.5 91 16 134/69 11/27 1555 97.5 91 16 134/69 97 Room Air 11/27 1406 97.0 75 16 128/72 11/27 1300 97.0 75 16 128/72 98 Room Air 11/27 1012 96.4 77 18 154/84 99 Room Air Allergies Coded Allergies: shellfish derived (Severe, THROAT SWELLING 10/28/16) latex (PER PT MD TOLD HIM HE MAY BE ALLERGIC TO LATEX 10/28/16) Reconcile Medications Escitalopram Oxalate (Lexapro) 10 MG TABLET 10 MG PO DAILY DEPRESSION Ibuprofen 400 MG TABLET 400 MG PO Q4 HRS NEEDED PRN PAIN Lactulose 20 GRAM/30 ML SOLUTION 20 GM PO DAILY HIGH AMMONIA Multivitamin (One Daily Multivitamin) 1 EACH TABLET 1 TAB PO DAILY SUPPLEMENT Tamsulosin HCl (Flomax) 0.4 MG CAP.ER.24H 0.4 MG PO DAILY Urinary Flow Trazodone HCl 50 MG TABLET 50 MG PO AT BEDTIME DEPRESSION AND SLEEP Triage Note: 36 Y/O MALE STATES "I DONT KNOW WHY IM HERE, THE POLICE WANTED ME TO COME". PT STATES HE GOT STUCK IN HIS CAR AND THE POLICE CAME TO ASSIST PT AND WAS ADVISED TO COME TO ED. PT ONLY C/O STOMACH PAIN BUT STATES "IT ALWAYS HURTS". STATES HE HAS NOT EATEN IN 2 DAYS. Triage Nurses Notes Reviewed? yes Onset: Abrupt Duration: day(s): Timing: recent history HPI: 11/27/16 10:20 AM This 36-year-old man who presents to the emergency department with multiple complaints. He says that he is just not been feeling right, he's had some epigastric abdominal pain, he has been drinking alcohol including this morning. The patient states he was recently discharged and received IV antibiotics. He is a little bit unclear on why he was seen in the emergency department on the prior visit. The onset of the symptoms were abrupt, the duration is unclear, the severity is significant as his symptoms required him to come to the emergency department for care. He has associated abdominal pain, and malaise He is awake and alert and oriented 3, but seems intoxicated. Past History Travel History Traveled to [place] past 21 day No Medical History Any Pertinent Medical History? 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 No Review of Systems Review of Systems Constitutional: Denies: fever. EENTM: Denies: visual changes. Respiratory: Denies: short of breath. Cardiovascular: Denies: chest pain. GI: Reports: abdominal pain. Genitourinary: Reports: no symptoms. Musculoskeletal: Reports: no symptoms. Skin: Reports: no symptoms. Neurological/Psychological: Reports: anxiety. Hematologic/Endocrine: Denies: bruising, bleeding. Physical Exam Physical Exam General Appearance: alert, awake, anxious, mild distress Head: atraumatic, normal appearance Eyes: Bilateral: normal appearance, PERRL, EOMI. Ears, Nose, Throat: normal pharynx, normal ENT inspection Neck: normal inspection, supple Respiratory: normal breath sounds, chest non-tender, no respiratory distress Cardiovascular: regular rate/rhythm Peripheral Pulses: 4+ radial (R), 4+ radial (L) Gastrointestinal: soft, tenderness (EPIGASTRIC) Back: normal range of motion Extremities: no edema Neurologic/Psych: awake, alert, oriented x 3, INTOXICATED Skin: intact, normal color, warm/dry Core Measures ACS in differential dx? No CVA/TIA Diagnosis: No Severe Sepsis Present: No Septic Shock Present: No Progress Differential Diagnoses I considered the following diagnoses in my evaluation of the patient: [Alcohol intoxication, electrolyte derangement, pancreatitis, alcoholic hepatitis] Plan of Care: Orders Procedure Date/time Status Regular Diet 11/27 L Active CIWA 11/27 1249 Active AMMONIA 11/27 1023 Complete URINE DRUG SCREEN FOR ER ONLY 11/27 1021 Complete LIPASE 11/27 1021 Complete ETHANOL 11/27 1021 Complete COMPREHENSIVE METABOLIC PANEL 11/27 1021 Complete CBC WITHOUT DIFFERENTIAL 11/27 1021 Complete AMYLASE 11/27 1021 Complete Laboratory Tests 11/27/16 1548: Ammonia 76 H 11/27/16 1031: Anion Gap 15, Estimated GFR > 60, BUN/Creatinine Ratio 12.2, Glucose 93, Calcium 8.7, Total Bilirubin 1.6 H, AST 95 H, ALT 73 H, Alkaline Phosphatase 72, Total Protein 7.7, Albumin 4.0, Globulin 3.7, Albumin/Globulin Ratio 1.1, Amylase 91, Lipase 331 H, CBC w Diff NO MAN DIFF REQ, RBC 4.38 L, MCV 102.1 H , MCH 34.4 H, RDW 14.9 H, MPV 7.5, Gran % 51.2, Lymphocytes % 30.7, Monocytes % 8.7, Eosinophils % 8.7 H, Basophils % 0.7, Absolute Granulocytes 2.4, Absolute Lymphocytes 1.4, Absolute Monocytes 0.4, Absolute Eosinophils 0.4, Absolute Basophils 0, PUBS MCHC 33.7, Serum Alcohol 362.0 11/27/16 1027: Urine Opiates Screen < 100.00, Methadone Screen < 40, Barbiturate Screen < 60, Ur Phencyclidine Scrn < 6.00, Amphetamines Screen < 100, U Benzodiazepines Scrn 96, Urine Cocaine Screen < 50, Urine Cannabis Screen < 5.00 Initial ED EKG: none Departure Departure Disposition: STILL A PATIENT Condition: Stable Clinical Impression Primary Impression: Alcohol intoxication Secondary Impressions: Alcoholic hepatitis, Hypernatremia, Pancreatitis Referrals: PATIENT HAS NO PRIMARY CARE DR (PCP/Family) Departure Forms: Customer Survey General Discharge Information Comments 11/27/16 5 PM The patient is awake alert and oriented 3. He has no complaints at this time. He is not ataxic and has insight into his situation. He says that he did drink earlier today. He denies depression or suicidal ideation. He admits to a problem with alcohol but is not requesting detox. He says that he has cirrhosis and a history of elevated liver enzymes and ammonia level. He was informed about the abnormalities in his labs including the elevated liver enzymes, elevated serum sodium. He was instructed to drink nonalcoholic fluids and follow-up with his physician on Thursday. The patient has friends that live nearby and he is comfortable ambulating home. Critical Care Note Critical Care Note Critical Care Time: 30-74 min
[2016-11-27 10:37] LABS: ABSOLUTE BASOPHIL COUNT 0 /CUMM (0.0-0.2); ABSOLUTE EOSINOPHIL COUNT 0.4 /CUMM (0.0-0.7); ABSOLUTE GRANULOCYTE CT 2.4 /CUMM (1.4-6.5); ABSOLUTE LYMPH COUNT 1.4 /CUMM (1.2-3.4); ABSOLUTE MONOCYTE COUNT 0.4 /CUMM (0.10-0.60); BASOPHIL % 0.7 % (0.0-2.0); EOSINOPHIL % 8.7 % (0-5); GRANULOCYTE % 51.2 % (42.2-75.2); HEMATOCRIT 44.7 % (42-52); MEAN CORPUSCULAR HGB 34.4 PG (27.0-31.0); MEAN CORPUSCULAR HGB CONC 33.7 G/DL (33.0-37.0); MEAN CORPUSCULAR VOLUME 102.1 FL (80.0-94.0); MEAN PLATELET VOLUME 7.5 FL (7.4-10.4); PLATELET COUNT 167 /CUMM (130-400); RBC DISTRIBUTION WIDTH 14.9 % (11.5-14.5); RED BLOOD CELL CT 4.38 /CUMM (4.70-6.10); WHITE BLOOD CELL COUNT 4.7 /CUMM (4.8-10.8)
[2016-11-27 17:17] VITALS: BP 134/70
== END 2016-11-27 17:33 ==
LOC: ERH 10:05
PROVIDERS: Emergency Medicine
DX: F10.129 Alcohol abuse with intoxication, unspecified (principal); K70.10 Alcoholic hepatitis without ascites; K85.90 Acute pancreatitis without necrosis or infection, unspecified; E87.0 Hyperosmolality and hypernatremia; I10 Essential (primary) hypertension; E03.9 Hypothyroidism, unspecified
CPT/HCPCS: 80307; 99291; G0480

== ENCOUNTER 2016-12-01 15:21 | Emergency (ER) | payer OTHER ==
[~2016-12-01] VITALS: Ht 172.7 cm; Wt 98.0 kg
--- NOTE | 2016-12-01 18:05 | ED HEAD/FACIAL INJ COMPLAINT ---
History of Present Illness General Chief Complaint: General Adult Stated Complaint: S/P FALL HEAD PAIN AND DIZZINESS ABD PAIN Source: patient, old records Exam Limitations: no limitations Vital Signs & Intake/Output Vital Signs & Intake/Output Vital Signs Date Time Temp Pulse Resp B/P Pulse O2 O2 Flow FiO2 Ox Delivery Rate 12/01 2039 98.7 110 22 143/78 97 Room Air 12/01 1534 98.4 120 20 159/95 98 Room Air ED Intake and Output 12/02 0000 12/01 1200 Intake Total 1000 Output Total Balance 1000 Intake, IV 1000 Patient 216 lb Weight Allergies Coded Allergies: shellfish derived (Severe, THROAT SWELLING 10/28/16) latex (PER PT MD TOLD HIM HE MAY BE ALLERGIC TO LATEX 10/28/16) Reconcile Medications Dicyclomine Hydrochloride (Bentyl) 10 MG CAPSULE 1 CAP PO TID PRN pain Escitalopram Oxalate (Lexapro) 10 MG TABLET 10 MG PO DAILY DEPRESSION Fluoxetine HCl (Prozac) (Unknown Strength) CAPSULE (Unknown Dose) PO DAILY MENTAL HEALTH (Reported) Ibuprofen 400 MG TABLET 400 MG PO Q4 HRS NEEDED PRN PAIN Lactulose 20 GRAM/30 ML SOLUTION 20 GM PO DAILY HIGH AMMONIA Milk Thistle Seed Extract (Milk Thistle) (Unknown Strength) CAPSULE (Unknown Dose) PO DAILY SUPPLEMENT (Reported) Multivitamin (One Daily Multivitamin) 1 EACH TABLET 1 TAB PO DAILY SUPPLEMENT Promethazine HCl 12.5 MG TABLET 1 TAB PO Q6-8 PRN nausea Tamsulosin HCl (Flomax) 0.4 MG CAP.ER.24H 0.4 MG PO DAILY Urinary Flow Trazodone HCl 50 MG TABLET 50 MG PO AT BEDTIME DEPRESSION AND SLEEP Triage Note: PT TO ED C/O HEAD PAIN S/P SLIP AND FALL ON ICE A FEW DAYS AGO. STATES HE FELL FLAT ON HIS FACE, UNSURE IF LOC. ABRASIONS NOTED TO FACE. C/O N/V SINCE FALLING. Triage Nurses Notes Reviewed? yes Onset: Abrupt Severity: moderate Severity Numbers: 4 Location: frontal Method of Injury: fall Loss of Consciousness: unsure Associated Symptoms: nausea/vomiting HPI: 36-year-old male presents to emergency room complaining of intermittent aching nonradiating frontal headaches nausea and difficulty concentrating for the past 3 days after he tripped and fell in the snow hitting his face. He is unsure of LOC at the time. The patient states he's had a few beers today to help with the pain, and states that he vomited once in the waiting room and he denies any abdominal pain at this time chest pain shortness of breath. There was no other injury from the fall no neck back upper or lower extremity injury. He has not taken anything for his symptoms. He denies any swelling to his face or dental trauma. Symptoms are worse with looking at his cell phone and watching TV. There is no radiation of his symptoms pain is described as aching (MOISES FRENCH) Past History Travel History Traveled to [place] past 21 day No Medical History Any Pertinent Medical History? 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 No (MOISES FRENCH) Review of Systems Review of Systems Constitutional: Reports: see HPI. All Other Systems: Reviewed and Negative Comments Review of systems: See HPI, All other systems negative. Constitutional, no chills no fever, no malaise HEENT: No visual changes no sore throat no congestion Cardiovascular: No chest pain , no palpitation Skin, no rashes, no change in skin Respiratory: No dyspnea no cough no sputum GI: nausea vomiting, no diarrhea, no bloating/constipation : No dysuria No hematuria, no frequency, no discharge Muscle skeletal: No joint pain, no joint swelling, no back pain, no neck pain, Neurologic: No numbness no confusion, headache Psych: No stress Heme/endocrine: No bruising no bleeding Immunology: No lymphadenopathy (MOISES FRENCH) Physical Exam Physical Exam General Appearance: well developed/nourished, alert, awake Cranial Nerves: normal hearing, normal speech, PERRL Comments: Well-developed well-nourished person in no acute distress HEENT: Normal EENT exam; PERRL, EOMI, no nystagmus. There are superficial healing abrasions noted to the nasal bridge and forehead, there is no ecchymosis or swelling, mandible has full range of motion . moist mucous membranes. no racoon eyes, no hemotypmanum Neck: Supple, no midline or paracervical tenderness, normal range of motion without pain or tenderness Back: Nontender, no CVA tenderness. Full range of motion Cardiovascular: Regular rate and rhythms no murmurs rubs Respiratory: No respiratory distress. Patient speaking in full complete sentences. Breath sounds clear to auscultation bilaterally: NO W/R/R Abdomen: Soft, nontender nondistended, no appreciable organomegaly. Normal bowel sounds. No rebound/guarding Extremity: No edema, full range of motion of extremities, normal and equal pulses bilaterally, 5 out of 5 strength noted to bilateral upper and lower extremities Neuro: Alert oriented x3, motor sensory normal, cranial nerves II through XII grossly intact. There were no obvious focal neurologic abnormalities. Skin: No appreciable rash on exposed skin, skin is warm and dry. Psych: Mood and affect is normal, memory and judgment is normal. (ANGEL JOE,MOISES) Progress Differential Diagnosis: c-spine injury, facial fracture, globe injury, ICH, orbit fracture, skull fracture Plan of Care: Orders Procedure Date/time Status LIPASE 12/01 1906 Complete ETHANOL 12/01 1906 Complete COMPREHENSIVE METABOLIC PANEL 12/01 1906 Complete CBC WITHOUT DIFFERENTIAL 12/01 1906 Complete AMYLASE 12/01 1906 Complete Laboratory Tests 12/01/16 192: Anion Gap 13, Estimated GFR > 60, BUN/Creatinine Ratio 13.3, Glucose 97, Calcium 8.5, Total Bilirubin 3.1 H, AST 132 H, ALT 83 H, Alkaline Phosphatase 74, Total Protein 6.7, Albumin 3.4 L, Globulin 3.3, Albumin/Globulin Ratio 1.0 L, Amylase 52, Lipase 378 H, CBC w Diff NO MAN DIFF REQ, RBC 3.50 L, MCV 100.7 H , MCH 34.9 H, RDW 13.5, MPV 7.9, Gran % 66.1, Lymphocytes % 22.1, Monocytes % 8.5, Eosinophils % 2.8, Basophils % 0.5, Absolute Granulocytes 4.8, Absolute Lymphocytes 1.6, Absolute Monocytes 0.6, Absolute Eosinophils 0.2, Absolute Basophils 0, PUBS MCHC 34.7, Serum Alcohol 225.0 CAT scan ordered Zofran 4 ODT ordered patient appears in no apparent distress there no neurologic deficits at this time I was called to the patient's bedside after he returned from CAT scan now stating that he is having epigastric abdominal pain for the past 4 days that he states feels like his pancreatitis. He states that he drank 5 nights ago prior to the episode beginning. He states that he does not drink every day. He states that he had a few beers today to help with the pain he was having from his fall. Labs were ordered IV fluids were ordered patient is declining narcotic pain medications. He is medicated Zofran ODT already feeling improved Case was discussed Dr. Delgadillo I discussed the patient at length his CT findings as well as HIS lab results. Patient's had no further episodes of nausea or vomiting in Department. I discussed with the patient at length all of their results including his elevated bilirubin which old records reviewed show is unchanged. He is aware of his elevated liver tests from drinking., need for close follow up with their primary care physician. This week. I answered all of their questions, they feel comfortable with the plan and follow-up care. I discussed the medications that they will receive with the patient prescriptions for Bentyl and Phenergan provided he will call his friend to pick him up.. I gave them signs and symptoms that could indicate an adverse reaction. I have advised them to limit their activities until they can see how they respond to the medication. (ANGEL JOE,MOISES) Diagnostic Imaging: Viewed by Me: CT Scan. Discussed w/RAD: CT Scan. Radiology Impression: PATIENT: VITA LOYD PRESENT AGE: 36 PATIENT ACCOUNT NO: [id number] : 79 LOCATION: [facility] ORDERING PHYSICIAN: MOISES JOE SERVICE DATE: 12/01/16 EXAM TYPE: CAT - CT HEAD WO IV CONTRAST EXAMINATION: CT HEAD WITHOUT CONTRAST CLINICAL INFORMATION: Status post fall with head trauma. Rule out intracranial hemorrhage. COMPARISON: Head CT from 06/27/2015. TECHNIQUE: Contiguous axial imaging was performed from the skull base to vertex without intravenous administration of contrast. DLP: 600.71 mGy-cm FINDINGS: There is no evidence of acute intracranial hemorrhage or territorial infarction. No abnormal mass effect or midline shift is seen. Breen to white matter differentiation is well preserved. No extra-axial fluid collections are identified. The ventricles are normal in size. There is no abnormal attenuation within the brain parenchyma. The osseous structures and soft tissues are normal. The mastoid air cells and visualized portions of the paranasal sinuses are well aerated. IMPRESSION: No acute intracranial pathology. DICTATED BY: YOU MOODY MD DATE/TIME DICTATED:12/01/161916 RETAIL MERCHANDISING COORDINATOR:HOLDEN DATE/TIME TRANSCRIBED:12/01/161916 CONFIDENTIAL, DO NOT COPY WITHOUT APPROPRIATE AUTHORIZATION. <Electronically signed in Other Vendor System> SIGNED BY: YOU MOODY MD 12/01/161922 (MOISES FRENCH) Departure Departure Time of Disposition: 1956 Disposition: HOME OR SELF CARE Condition: Stable Clinical Impression Primary Impression: Concussion Secondary Impressions: Elevated bilirubin Referrals: PATIENT HAS NO PRIMARY CARE DR (PCP/Family) Additional Instructions: Brain rest, limit TV cell phone computer usage as this may work make your symptoms worse. Follow-up with your primary care physician. [place] diet clear liquids advance diet as tolerated. Stop drinking alcohol Departure Forms: Customer Survey General Discharge Information Prescriptions: Current Visit Scripts Promethazine HCl 1 TAB PO Q6-8 PRN nausea #15 TAB Dicyclomine Hydrochloride (Bentyl) 1 CAP PO TID PRN pain #15 CAP (MOISES FRENCH) PA/YOUTH CARE SPECIALIST Co-Sign Statement Statement: ED Attending supervision documentation- [] I saw and evaluated the patient. I have also reviewed all the pertinent lab results and diagnostic results. I agree with the findings and the plan of care as documented in the PA's/YOUTH CARE SPECIALIST's documentation. [X] I have reviewed the ED Record and agree with the PA's/YOUTH CARE SPECIALIST's documentation. [] Additions or exceptions (if any) to the PAs/YOUTH CARE SPECIALIST's note and plan are summarized below: [] (PAOLA BERMUDEZ,YOU Real)
--- NOTE | 2016-12-01 19:23 | CT SCAN REPORT ---
EXAMINATION: CT HEAD WITHOUT CONTRAST CLINICAL INFORMATION: Status post fall with head trauma. Rule out intracranial hemorrhage. COMPARISON: Head CT from 06/27/2015. TECHNIQUE: Contiguous axial imaging was performed from the skull base to vertex without intravenous administration of contrast. DLP: 600.71 mGy-cm FINDINGS: There is no evidence of acute intracranial hemorrhage or territorial infarction. No abnormal mass effect or midline shift is seen. Breen to white matter differentiation is well preserved. No extra-axial fluid collections are identified. The ventricles are normal in size. There is no abnormal attenuation within the brain parenchyma. The osseous structures and soft tissues are normal. The mastoid air cells and visualized portions of the paranasal sinuses are well aerated. IMPRESSION: No acute intracranial pathology.
[2016-12-01] MEDS ORDERED: PROZAC10 M1 PO (19:26)
[2016-12-01] MEDS ORDERED: MILK THISTLE200 M1 PO (19:26)
[2016-12-01 19:32] LABS: ABSOLUTE BASOPHIL COUNT 0 /CUMM (0.0-0.2); ABSOLUTE EOSINOPHIL COUNT 0.2 /CUMM (0.0-0.7); ABSOLUTE GRANULOCYTE CT 4.8 /CUMM (1.4-6.5); ABSOLUTE LYMPH COUNT 1.6 /CUMM (1.2-3.4); ABSOLUTE MONOCYTE COUNT 0.6 /CUMM (0.10-0.60); BASOPHIL % 0.5 % (0.0-2.0); EOSINOPHIL % 2.8 % (0-5); GRANULOCYTE % 66.1 % (42.2-75.2); MEAN CORPUSCULAR HGB 34.9 PG (27.0-31.0); MEAN CORPUSCULAR HGB CONC 34.7 G/DL (33.0-37.0); MEAN CORPUSCULAR VOLUME 100.7 FL (80.0-94.0); MEAN PLATELET VOLUME 7.9 FL (7.4-10.4); PLATELET COUNT 141 /CUMM (130-400); RBC DISTRIBUTION WIDTH 13.5 % (11.5-14.5)
[2016-12-01 19:40] LABS: HEMATOCRIT 35.2 % (42-52); WHITE BLOOD CELL COUNT 7.3 /CUMM (4.8-10.8)
[2016-12-01] MEDS ORDERED: PROMETHAZINE12.5 M2 PO (20:09)
[2016-12-01] MEDS ORDERED: BENTYL10 M1 PO (20:09)
[2016-12-01 20:40] VITALS: BP 143/78
== END 2016-12-01 20:41 ==
LOC: ERH 15:21
PROVIDERS: Physician Assistant Medical
DX: S06.0X9A Concussion with loss of consciousness of unspecified duration, initial encounter (principal); R79.89 Other specified abnormal findings of blood chemistry; W00.0XXA Fall on same level due to ice and snow, initial encounter
CPT/HCPCS: 96361; 96374; G0480; J1885; J3101

== ENCOUNTER 2017-01-30 21:13 | Inpatient (IN) | payer OTHER ==
[~2017-01-30] VITALS: Ht 172.7 cm; Wt 92.6 kg
[~2017-01-30 21:13] MED LIST changes: +BENTYL10 M1 PO; +MILK THISTLE200 M1 PO; +PROMETHAZINE12.5 M2 PO; +PROZAC10 M1 PO
--- NOTE | 2017-01-30 21:17 | ED PSYCHIATRIC COMPLAINT ---
See Addendum History of Present Illness General Chief Complaint: Psychiatric Related Complaint Stated Complaint: +SI Source: patient, EMS Exam Limitations: intoxication Vital Signs & Intake/Output Vital Signs & Intake/Output Vital Signs Date Time Temp Pulse Resp B/P Pulse O2 O2 Flow FiO2 Ox Delivery Rate 02/01 1425 96.8 89 18 145/66 99 Room Air 02/01 1038 96.5 74 18 135/65 99 Room Air 02/01 0649 97.0 68 20 107/63 98 Room Air 01/31 2233 97.0 67 16 138/78 99 Room Air 01/31 1851 97.7 69 18 105/55 99 Room Air Allergies Coded Allergies: shellfish derived (Severe, THROAT SWELLING 10/28/16) latex (PER PT MD TOLD HIM HE MAY BE ALLERGIC TO LATEX 10/28/16) Reconcile Medications Escitalopram Oxalate (Lexapro) 10 MG TABLET 10 MG PO DAILY DEPRESSION Fluoxetine HCl (Prozac) (Unknown Strength) CAPSULE 20 MG PO DAILY MENTAL HEALTH (Reported) Lactulose 20 GRAM/30 ML SOLUTION 20 GM PO DAILY HIGH AMMONIA Tamsulosin HCl (Flomax) 0.4 MG CAP.ER.24H 0.4 MG PO DAILY Urinary Flow Trazodone HCl 50 MG TABLET 50 MG PO AT BEDTIME DEPRESSION AND SLEEP Triage Nurses Notes Reviewed? yes Onset: Abrupt Duration: minute(s): Timing: single episode today Severity: mild HPI: 36 yo gentleman h/o cirrhosis, presents with suicide attempt. He shares that he took approximately 22 pills of prozac 20mg approximately 30 minutes prior to arrival. He also took 5 shots of alcohol and several beers. He denies other drugs. He denies hallucinations, homicidality. (ONI BERMUDEZ,KEE Hong) Past History Travel History Traveled to [place] past 21 day No Medical History Any Pertinent Medical History? see below for history Gastrointestinal: cirrhosis Surgical History Surgical History: none Family History Hx Contributory? No (ONI BERMUDEZ,KEE Hong) Review of Systems Review of Systems Constitutional: Reports: no symptoms. EENTM: Reports: no symptoms. Respiratory: Reports: no symptoms. Cardiovascular: Reports: no symptoms. GI: Reports: no symptoms. Genitourinary: Reports: no symptoms. Musculoskeletal: Reports: no symptoms. Skin: Reports: no symptoms. Neurological/Psychological: Reports: no symptoms. Hematologic/Endocrine: Reports: no symptoms. Immunologic/Allergic: Reports: no symptoms. All Other Systems: Reviewed and Negative (KEE BUNN MD) Physical Exam Physical Exam General Appearance: well developed/nourished, mild distress Head: atraumatic Eyes: Bilateral: PERRL, EOMI. Ears, Nose, Throat: normal pharynx, normal ENT inspection, hearing grossly normal Neck: normal inspection, supple Respiratory: normal breath sounds Cardiovascular: regular rate/rhythm Gastrointestinal: soft, non-tender Extremities: normal range of motion Neurological/Psychiatric: no motor/sensory deficits, awake, anxious, oriented x 3 Appearance/Memory/Insight: disheveled, impaired insight Behavoir/Eye Contact/Speech: cooperative Thoughts/Hallucinations: no apparent hallucination Skin: intact, normal color, warm/dry SAD PERSONS SAD PERSONS Response Value Age <19 or >45 years? yes 1 Previous Attempts/Psych Care yes 1 Rational Thinking Loss? yes 2 Single//? yes 1 Social Support? has no support 1 Total 6 SAD PERSONS Done? yes (KEE BUNN MD) Progress Differential Diagnosis: drug intoxication, drug overdose, electrolyte abnormality Plan of Care: Orders Procedure Date/time Status Continuous Observation Monitor 02/01 1600 Active Continuous Observation Monitor 02/01 1200 Active Continuous Observation Monitor 02/01 0759 Active 01/31/2017 7:20:57 PM Patient signed out to me by Dr. Delgadillo. Pending inpatient crisis bed placement. (CIPRIANO BLACK MD) Initial ED EKG: normal axis, normal intervals, normal p-waves, normal QRS complex, normal sinus rhythm Hand-Off Endorsed To: YOU DELGADILLO MD Endorsed Time: 0700 Pending: consult (KEE BUNN MD) Hand-Off Endorsed To: CIPRIANO BLACK MD Endorsed Time: 1900 Pending: other (BED SEARCH) Comments: Patient has been seen and evaluated by the home health clinician. Patient is to be admitted. A BED SEARCH IS UNDERWAY. (YOU DELGADILLO MD) Departure Departure Disposition: STILL A PATIENT Condition: Stable Clinical Impression Primary Impression: Alcohol intoxication Secondary Impressions: Attempted suicide Departure Forms: Customer Survey General Discharge Information (KEE BUNN MD) 01/30/17 2303: Anion Gap 13, Estimated GFR > 60, BUN/Creatinine Ratio 10.0, Glucose 128 H, Calcium 8.4, Total Bilirubin 1.0, AST 57, ALT 53, Alkaline Phosphatase 90, Total Protein 6.3, Albumin 3.3 L, Globulin 3.0, Albumin/Globulin Ratio 1.1, CBC w Diff NO MAN DIFF REQ, RBC 3.92 L, MCV 92.3, MCH 30.8, RDW 14.8 H, MPV 9.3, Gran % 47.1, Lymphocytes % 36.0, Monocytes % 11.6 H, Eosinophils % 4.8, Basophils % 0.5, Absolute Granulocytes 1.8, Absolute Lymphocytes 1.3, Absolute Monocytes 0.4, Absolute Eosinophils 0.2, Absolute Basophils 0, PUBS MCHC 33.4, Salicylates < 1.0, Acetaminophen < 10.0 L, Serum Alcohol 129.0 01/31/2017 7:20:57 PM Patient signed out to me by Dr. Delgadillo. Pending inpatient crisis bed placement. (CIPRIANO BLACK MD) Initial ED EKG: normal axis, normal intervals, normal p-waves, normal QRS complex, normal sinus rhythm Hand-Off Endorsed To: YOU DELGADILLO MD Endorsed Time: 0700 Pending: consult (KEE BUNN MD) Hand-Off Endorsed To: CIPRIANO BLACK MD Endorsed Time: 1900 Pending: other (BED SEARCH) Comments: Patient has been seen and evaluated by the home health clinician. Patient is to be admitted. A BED SEARCH IS UNDERWAY. (YOU DELGADILLO MD) Departure Departure Disposition: STILL A PATIENT Condition: Stable Clinical Impression Primary Impression: Alcohol intoxication Secondary Impressions: Attempted suicide Departure Forms: Customer Survey General Discharge Information (KEE BUNN MD) Patient has been seen and evaluated by the home health clinician. Patient is to be admitted. A BED SEARCH IS UNDERWAY. (YOU DELGADILLO MD) Departure Departure Disposition: STILL A PATIENT Condition: Stable Clinical Impression Primary Impression: Alcohol intoxication Secondary Impressions: Attempted suicide Departure Forms: Customer Survey General Discharge Information (KEE BUNN MD)
--- NOTE | 2017-01-30 21:28 | NUR ---
Informed waiting has been performed.
--- NOTE | 2017-01-30 21:28 | NUR ---
PT BIBA ON PEER TO RM 7 S/P SUICIDE ATTEMPT VIA OVERDOSE. PER REPORT OF EMS PT IS HOMELESS AND CALLED 911 AFTER TAKING 22 FLUOXETINE 20 MG TABS APPROX 30 MIN TUBE SORTER STATING THAT HE "DIDN'T WANT TO WAKE UP IN THE MORNING". PT ALSO ADMITTED TO DRINKING 5 BEERS AND 4 SHOTS OF UNKNOWN ALCOHOL. PT STATES DOES NOT DRINK DAILY. DENIES REGULAR RECREATIONAL DRUG USE BUT STATES HE USED COCAINE "FOR THE FIRST TIME" A FEW DAYS AGO. PT CALM/COOPERATIVE WITH CARE. SECURITY PRESENT FOR WANDING AND CHANGING PATIENT. DR BUNN INTO EVALUATE PATIENT ON ARRIVAL TO ROOM.
--- NOTE | 2017-01-30 21:37 | NUR ---
PT GIVEN CHARCOAL TO DRINK
--- NOTE | 2017-01-30 23:07 | NUR ---
REPORT TO ROSEMARY FREEMAN
[2017-01-30 23:20] LABS: ABSOLUTE BASOPHIL COUNT 0 /CUMM (0.0-0.2); ABSOLUTE EOSINOPHIL COUNT 0.2 /CUMM (0.0-0.7); ABSOLUTE GRANULOCYTE CT 1.8 /CUMM (1.4-6.5); ABSOLUTE LYMPH COUNT 1.3 /CUMM (1.2-3.4); ABSOLUTE MONOCYTE COUNT 0.4 /CUMM (0.10-0.60); BASOPHIL % 0.5 % (0.0-2.0); EOSINOPHIL % 4.8 % (0-5); GRANULOCYTE % 47.1 % (42.2-75.2); HEMATOCRIT 36.2 % (42-52); MEAN CORPUSCULAR HGB 30.8 PG (27.0-31.0); MEAN CORPUSCULAR HGB CONC 33.4 G/DL (33.0-37.0); MEAN CORPUSCULAR VOLUME 92.3 FL (80.0-94.0); MEAN PLATELET VOLUME 9.3 FL (7.4-10.4); PLATELET COUNT 107 /CUMM (130-400); RBC DISTRIBUTION WIDTH 14.8 % (11.5-14.5); RED BLOOD CELL CT 3.92 /CUMM (4.70-6.10); WHITE BLOOD CELL COUNT 3.7 /CUMM (4.8-10.8)
--- NOTE | 2017-01-30 23:32 | NUR ---
AWAITS LAB RESULTS, REQUESTS SOMETHING FOR VEL[place]ZQUEZ. PT AWARE WAITING ON LABS PRIOR TO MEDICATING PT.
--- NOTE | 2017-01-31 00:52 | NUR ---
PT MEDICALLY CLEARED PER MD CORADO TO GO TO ROOM 14. FORM COMPLETED FOR SITTER.
--- NOTE | 2017-01-31 05:40 | NUR ---
ASLEEP NO DISTRESS SITTER MAINTAINED
--- NOTE | 2017-01-31 06:33 | NUR ---
awaits crisis sana tripathi am, sitter maintained no further moe noted.
--- NOTE | 2017-01-31 09:21 | NUR ---
AWAITS CRISIS EVAL ALERT CALM COOP SITTER IN PLACE.
--- NOTE | 2017-01-31 11:02 | ED PSYCH CRISIS CONSULTATION ---
See Addendum Crisis Consult Basic Assessment Date of Consult: 01/31/17 Responsible Person/Accompanied By: PRATEEK on a PEER Insurance Authorization: Insurance #1: Insurance name: DOLORES DOUGLAS Phone number: Policy number: [id number] Group number: Authorization number: ED Provider: Patient's ED Provider: ONI BERMUDEZ,KEE Hong Primary Care Physician: Patient's PCP: PATIENT HAS NO PRIMARY CARE DR PCP's Phone Number: Current Psychiatrist: meds prescribed by [facility] Chief Complaint: Psychiatric Related Complaint Patient's Quote: "I was sick of living like this" Present Illness: Pt is a 36 year old male PRATEEK last night on a PEER. According to the PEER, pt. called 911 for himself and reported that he had taken 20 Prozac 20mg pills in a suicide attempt. Pt. was also intoxicated on alcohol (BAL of 129 at 11:03 pm last night) and tested positive for cocaine. This morning during evaluation with this bowling alley attendant, pt was somewhat drowsy, but oriented x 3. His affect was flat and he reported his mood was depressed. Pt. reports that he is currently homeless and stays with either his girlfriend or one of two friends. Pt reports that last night the friend whom he was staying with started yelling at him and pt reports that he became aggravated" and started having thoughts like, "I'm sick of living like this". Pt. reports that a friend had also called him at some point yesterday informing him that there was a warrant out for pt's arrest. Pt reports that this warrant was the major reason why he took the 20 Prozac pills. Pt reports that he was outside walking around and realized that he had his bottle of Prozac with him and took the pills. Pt reports that he then "regretted" what he had done and called 911. Pt. reports that he used alcohol last night - about 4 or 5 beers and 2 or 3 shots. Pt. reports that before last night, he had been sober since he had been discharged from [facility] in October. Pt reports that he had also only recently resumed taking his prescribed Prozac after not taking it for a few months due to not having any insurance or money. Pt reports that he did not attend a new intake at [facility] - which was part of his discharge plan from [facility] in October - but did have someone from there call in a refill of the Prozac for him. Pt reports that he has had other hospitalizations for depression, suicidal thoughts and alcohol detox, but denies any previous suicide attempts. When asked if pt. was still having suicidal thoughts this morning, he said, "well, I did find out that there was not a warrant for my arrest". When asked if he wanted to be admitted, pt said, "I don't know, I just woke up and it's difficult to think". Pt does have multiple stressors : unemployment, extreme financial difficulties, homelessness and chronic untreated migraine headaches. Patient's Address: [address] [place] [address] Other Phone Number: Who Do You Live With? Patient/Self (homeless) Family/Informants Interviewed: cannot be obtained due to (pt. refusing) Allergies - Coded Allergies: shellfish derived (Severe, THROAT SWELLING 10/28/16) latex (PER PT MD TOLD HIM HE MAY BE ALLERGIC TO LATEX 10/28/16) Current Medications - Scheduled Medications Escitalopram Oxalate (Lexapro) 10 MG TABLET 10 MG PO DAILY DEPRESSION #14 TAB Prescribed by MOHIT BLAKE APRN on 11/02/16 Fluoxetine HCl (Prozac) (Unknown Strength) CAPSULE 20 MG PO DAILY MENTAL HEALTH (Reported) Entered as Reported by MADISON THORNE on 12/01/161925 Lactulose 20 GRAM/30 ML SOLUTION 20 GM PO DAILY HIGH AMMONIA #7 DP Prescribed by MOHIT BLAKE APRN on 11/04/16 Last Taken: At an unknown date and time Tamsulosin HCl (Flomax) 0.4 MG CAP.ER.24H 0.4 MG PO DAILY Urinary Flow #14 CAP Prescribed by MOHIT BLAKE APRN on 11/04/16 Last Taken: At an unknown date and time Trazodone HCl 50 MG TABLET 50 MG PO AT BEDTIME DEPRESSION AND SLEEP #14 TAB Prescribed by MOHIT BLAKE APRN on 11/02/16 Last Taken: At an unknown date and time Laboratory Results: Laboratory Tests 01/30/17 2303: Anion Gap 13, Estimated GFR > 60, BUN/Creatinine Ratio 10.0, Glucose 128 H, Calcium 8.4, Total Bilirubin 1.0, AST 57, ALT 53, Alkaline Phosphatase 90, Total Protein 6.3, Albumin 3.3 L, Globulin 3.0, Albumin/Globulin Ratio 1.1, CBC w Diff NO MAN DIFF REQ, RBC 3.92 L, MCV 92.3, MCH 30.8, RDW 14.8 H, MPV 9.3, Gran % 47.1, Lymphocytes % 36.0, Monocytes % 11.6 H, Eosinophils % 4.8, Basophils % 0.5, Absolute Granulocytes 1.8, Absolute Lymphocytes 1.3, Absolute Monocytes 0.4, Absolute Eosinophils 0.2, Absolute Basophils 0, PUBS MCHC 33.4, Salicylates < 1.0, Acetaminophen < 10.0 L, Serum Alcohol 129.0 01/30/177: Urine Opiates Screen < 100.00, Methadone Screen < 40, Barbiturate Screen < 60, Ur Phencyclidine Scrn < 6.00, Amphetamines Screen < 100, U Benzodiazepines Scrn < 85, Urine Cocaine Screen > 1000 H, Urine Cannabis Screen 5.20 Past History Past Medical History Neurological: TBI EENT: NONE Cardiovascular: hypertension Respiratory: NONE Gastrointestinal: pancreatitis, LOWER GIB ESOPHAGEAL VARICES UMBILICAL HERNIA Hepatic: cirrhosis, hepatic encephalopathy Renal: NONE Musculoskeletal: NONE Psychiatric: alcohol dependence, anxiety, depression Endocrine: hypothyroidism Blood Disorders: NONE Cancer(s): NONE 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 Physical Limitations (Interventions): none known Psychiatric Treatment History Psych Treatment Psychiatric Treatment Yes Inpatient Treatment Yes Outpatient Treatment Yes Location of Treatment IP: [place] [facility]. OP: [facility] Reason for Treatment Depression, SI Dates of Treatment IP: most recent Oct 2016, OP: prior to 2017 Response to Treatment unk Diagnosis by History: Depression Unpecified Substance Use/Abuse History Drug Use/Abuse 1 Substances Used/Abused Yes Substance Used/Abused Alcohol First Use unk Last Used last night How much used/taken 5 beers, 3 shots How often one day For how long only yesterday Route of use oral Drug Use/Abuse 2 Substances Used/Abused Yes Substance Used/Abused Cocaine First Use a few days ago Last Used a few days ago How much used/taken unk How often only one time For how long only one time Route of use unk Substance Abuse Treatment Substance Abuse Treatment Past Substance Abuse TX Yes Inpatient Treatment Yes Outpatient Treatment No Location of Treatment [facility] Reason for Treatment Alcohol detox Dates of Treatment Most recent: 2014 Response to Treatment unk Comments: Pt. reports recent 3 month sobriety before last night. Current Mental Status Mental Status Orientation: Person, Place, Situation Affect: Flat Speech: Soft Neuro-vegetative: Anhedonia, Appetite Decreased, Concentration Poor, Energy Decreased, Loss of Interest, Sleep Disturbance Appearance Appearance- Dress/Hygiene: WNL Behaviors Thought Process: unfocused Thought Content: WNL Memory: Impaired Insight: Fair SI/HI Risk Assessment Past Suicidal Ideation/Attempts Yes Current Suicidal Ideation/Att Yes (attempt last night) Past Homicidal Ideation/Att: No Current Homicidal Ideation/Attempts No Degree of Intent: Pt. attempted suicide last night by OD Danger To: Self Gravely Disabled: Poor Impulse Control, Poor Judgment Risk Factors: access to lethal means, chronic/serious med cond., high anxiety/ distress, history of suicide atmpts, SA/MH hospitalized, substance abuse, isolate/no social support, poor impulse control, male, limited support, unemployed, homeless Lethality Ratin PTSD Checklist PTSD Done? patient declined ED Management Sitter: Yes Restraints: No DSM5/PS Stressors/Medical Prob Diagnosis' (DSM 5, Stressors, Medical): F32.9 - Unspecified Depression; F10.20 - Alcohol se D/O, severe. Stressors: homeless, unemployed, financial, limited supports. Medical: migraines Current GAF: 24 Comments: Pt attempted suicide by OD last night and remains depressed and passive suicidal. Pt. needed inpatient treatment. Departure Disposition Psych Medical Clearance Date: 01/31/17 Medically Cleared at: 0915 Time Started: 0915 Time Ended: 999 Psychiatrist Consulted: Marquis Medina MD Date Disposition Established: 01/31/17 Time Disposition Established: 1000 Plan for Disposition - Modality: Bed Search Facility: [facility] Contact: n/a Telephone: n/a Rationale for Disposition: Pt. attempted suicide last night by OD on 20 Prozac, pt. has multiple stressors and is depressed. He remains passively suicidal today and is at current risk of harm to self. Type of IP Admission: Voluntary Additional Instructions: Bed search will be conducted and pt's info will be faxed to any hospitals with available beds. If none are found, pt will be h/o until the next shift and will be re-evaluated by Crisis again. Referrals PATIENT HAS NO PRIMARY CARE DR (PCP/Family)
--- NOTE | 2017-01-31 11:13 | NUR ---
REPORT TAKEN FROM ROSEMARY YUEN, ASSUMING CARE
--- NOTE | 2017-01-31 11:46 | NUR ---
IV REMOVED. PT AWAITING PLACEMENT
--- NOTE | 2017-01-31 13:08 | ED PSYCHIATRIST/APRN CONSULT ---
Psychiatrist/SEO INTERN ED Consult Assessment and Plan: Pt seen as follow-up. Pt continues to note no change. Feels that hospitalization needed. Denies active SI but notes passive. MSE Appears as stated age. Cooperative behavior, good, appropriate eye contact. Nl speech rate and prosody. No psychomotor retardation or agitation. Mood you know...not good Affect slightly irritable, depressed, constricted, appropriate, non-liable. Linear and goal directed thought process. Denies SI or HI. Does not appear to be responding to internal stimuli. Denies AVHs, paranoia, or delusions. I/J: limited Awaiting inpatient psych placement Bed search underway
--- NOTE | 2017-01-31 13:33 | NUR ---
Pt evaluated by Crisis this AM. Suicide attempt last night, multiple stressors, Still depressed and passive SI. Consulted with Dr. Medina who wants pt to be admitted somewhere. Bed Search done. Pt's info sent to [place] and [facility].
--- NOTE | 2017-01-31 15:00 | NUR ---
PT RESTING IN RM 14. DID NOT EAT BREAKFAST OR LUNCH D/T LACK OF APPETITE
--- NOTE | 2017-01-31 18:00 | NUR ---
SITTER REMAINS WITHIN DIRECT VIEW. OFFERS NO COMPLAINTS. 50% DINNER TRAY EATEN
--- NOTE | 2017-01-31 21:33 | NUR ---
PT LYING ON BED, C/O HEADACHE. REFUSING TYLENOL OR MOTRIN AT THIS TIME. OFFERED WATER
--- NOTE | 2017-01-31 21:55 | NUR ---
Crisis reevaluated pt and pt was PEC'd recommended by Dr. Medina.
--- NOTE | 2017-01-31 22:38 | NUR ---
PT MEDICATED PER EMAR. VSS. SITTER IN PLACE. WILL CONTINUE TO MONITOR.
--- NOTE | 2017-01-31 23:30 | NUR ---
ASSUMED CARE FROM WINNIE RILEY
--- NOTE | 2017-02-01 00:24 | NUR ---
PT AWAKE. PT APPEARS TO BE RESTING COMFORTABLY. RESP UNLABORED. NO APPARENT DISTRESS. SITTER PRESENT
--- NOTE | 2017-02-01 02:24 | NUR ---
PT SLEEPING. RESP UNLABORED. NO APPARENT DISTRESS. SITTER AT BEDSIDE
--- NOTE | 2017-02-01 04:06 | NUR ---
PT RESTING QUIETLY ON STRETCHER. NORMAL RR NOTED. SITTER IN PLACE. WILL CONTINUE TO MONITOR.
--- NOTE | 2017-02-01 06:30 | NUR ---
PT CONTINUES SLEEPING. RESP UNLABORED. RESP UNLABORED. NO APPARENT DISTRESS. WILL CONTINUE TO MONITOR
--- NOTE | 2017-02-01 07:55 | NUR ---
PT MEDICATED WITH 975 MG TYLENOL FOR H/A
--- NOTE | 2017-02-01 10:00 | NUR ---
CRISIS AT BEDSIDE
--- NOTE | 2017-02-01 10:28 | NUR ---
Pt information faxed for review for possible admission to [facility]. [facility] crisis staff report open beds but limited ability to review possible admissions.
--- NOTE | 2017-02-01 12:00 | NUR ---
PT GIVEN LUNCH TRAY
--- NOTE | 2017-02-01 12:18 | ED PSYCHIATRIST/APRN CONSULT ---
Psychiatrist/EMPLOYMENT PROGRAM REPRESENTATIVE ED Consult Assessment and Plan: Pt seen as f/u. Pt in bed in the dark. Complaining of migraine. Very irritable. Feels inpt psych would be beneficial. MSE Appears as stated age. Defensive. Nl speech rate and prosody. No psychomotor retardation or agitation. Mood my head hurts Affect extremely irritable, onstricted, appropriate, non-liable. Linear and goal directed thought process. Denies SI or HI. Does not appear to be responding to internal stimuli. Denies AVHs, paranoia, or delusions. I/J: limited Pt awaiting acute psychiatric stablization. Bed search underway.
--- NOTE | 2017-02-01 14:36 | NUR ---
PT MEDICATED WITH 1 FIORCET PO FOR H/A. PT GIVEN SUNGLASSES D/T REFLECTION OF TV BOTHERING HIS HEAD
--- NOTE | 2017-02-01 18:54 | NUR ---
PT REPORTS RELIEF FROM HEADACHE AT THIS TIME. PT RESTING ON STRETCHER, OFFERS NO COMPLAINTS.
--- NOTE | 2017-02-01 22:46 | NUR ---
PT MEDICATED WITH PRN FIORICIT FOR C/O HEADACHE. OFFERS NO OTHER COMPLAINTS AT THIS TIME. VERBALIZES UNDERSTANDING OF POC.
--- NOTE | 2017-02-02 00:36 | NUR ---
PATIENT SLEEPING AT THIS TIME W/ REGULAR RESPIRATIONS NOTED, LIGHTS DIMMED. SITTER REMAINS AT DOORWAY.
--- NOTE | 2017-02-02 02:47 | NUR ---
PATIENT CONTINUES TO SLEEP AT THIS TIME W/ REGULAR RESPIRATIONS NOTED. SITTER REMAINS W/ PATIENT. PATIENT SAFETY MONITOR SHEET BEING CONTINUED BY SITTER. PATIENT TURNING AND REPOSITIONING SELF IN ROOM.
--- NOTE | 2017-02-02 05:02 | NUR ---
PATIENT CONTINUES TO SLEEP AT THIS TIME W/ REGULAR RESPIRATIONS NOTED. SITTER REMAINS W/ PATIENT. PATIENT SAFTY MONITOR SHEET CONTINUED BY SITTER.
--- NOTE | 2017-02-02 06:27 | NUR ---
PATIENT REPORTS "ABLE TO SLEEP FOR A FEW HOURS BUT NOW MY VELÁZQUEZ PAIN IS BACK UP TO AN 8/10." PATIENT DENIES ANY OTHER COMPLAINTS. SITTER REMAINS W/ PATIENT. POC: BED SEARCH.
--- NOTE | 2017-02-02 07:45 | NUR ---
ASSUMED CARE PT AWAKE ALERT CALM AND COPERATIVE AT THIS TIME, PT PROVIDED WITH BREAKFAST TRAY , BUT STATES THAT HE IS NOT HUNGRY AT THIS TIME. PT ALSO COMPLAINS OF 7/10 HEADACHE THAT HE HAS HAD SINCE YESTERDAY. DR BLACK AWARE
--- NOTE | 2017-02-02 07:52 | NUR ---
PT MEDICATED WITH FIORICET FOR 710 HEADACHE AT THIS TIME
--- NOTE | 2017-02-02 10:11 | NUR ---
PT REMAINS CALM AND COPERATIVE. AWARE THAT HE WILL BE ADMITTED TO THE HOSPITAL
--- NOTE | 2017-02-02 10:26 | NUR ---
CRISIS AT [facility] , PT STATES THAT HIS HEADACHE IS INCREASING AGAIN.
--- NOTE | 2017-02-02 10:49 | ED PSY CRISIS COLLATERAL NOTE ---
See Addendum Collateral Note Collateral Note Family/Inform/Jennifer Contacts: Patient is estranged from his parents. He has not seen anyone from [facility], his last outpatient program coordinator since May or August of 2016. Prozac was left over from that time. Briana Adames APRN
--- NOTE | 2017-02-02 11:00 | NUR ---
PT MEDICATED WITH MOTRIN PER ORDER FOR COMPLAINTS OF HEADACHE
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
--- NOTE | 2017-02-02 13:47 | NUR ---
REPORT TO JESSICA RASCON.
--- NOTE | 2017-02-02 15:49 | NUR ---
Admitted from Ed on voluntary for depression +SI s/p SA by OD on prozac. He describes it as an impulsive act during stressfull encounter with female friend who told him that he had warrents pending. reports not having any warrents pending. Also reports that he frequently takes 2 prozac despite only being prescribed 1 tab. Mood is stable, eythymic perhaps slightly blunted affect. Denies current SI, reports good sleep and appetite. Has hx of migraines. Close family hx of addiction and suicide (brother)
[2017-02-02 16:23] VITALS: BP 139/79
[2017-02-02 16:26] VITALS: BP 128/70
--- NOTE | 2017-02-02 18:17 | NUR ---
submitted 3 day termination of voluntary at 16:58. Dr Willis notified.
[2017-02-02 19:38] VITALS: BP 138/69
[2017-02-02 19:44] VITALS: BP 138/69
--- NOTE | 2017-02-02 21:30 | NUR ---
PT IS VISIBLE ON UNIT, SOCIAL WITH PEERS AND WATCHING TV IN KITCHEN. COOPERATIVE AND COMPLIANT WITH STAFF. ATTENDED WRAP UP MEETING AND PARTICIPATED. NO COMPLAINTS OR SI REPORTED. PT HAS A STABLE MOOD AND FULL RANGE AFFECT.
[2017-02-03] VITALS (8 sets, daily range): BP systolic 130–164; BP diastolic 64–77
--- NOTE | 2017-02-03 06:31 | NUR ---
PT APPEARED TO SLEEP THRU THE NIGHT. MOTRIN 400 IN THE AM FOR HEADACHE.
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
--- NOTE | 2017-02-03 11:53 | NUR ---
PT WAS VISIBLE IN THE [place]. HIS GOAL WAS TO GET HEADACHES RESOLVED SINCE THEY HAVE BEEN REALLY BAD. IN THE [place] PT HAS SOME PARTICIPATION IN GROUPS, AND INTERACTIONS WITH PEERS. HE HAS BEEN COMPLIANT WITH STAFF DIRECTION, AND DENIES THOUGHTS OF HURTING SELF WHEN ASKED.
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
--- NOTE | 2017-02-03 13:09 | History & Physical ---
General Information and HPI History of Present Illness: This young male was admitted to psychiatry because of increased depression and suicidal attempt with overdose on his medication. He reportedly took a lot of Prozac and had alcohol with and was therefore admitted for treatment of his depression and suicidal gesture. He has a history of cirrhosis in the past from drinking too much alcohol and has been an alcoholic for a long time. He claims he has had multiple taps done to remove fluid from his abdomen and he has been seeing a nitroglycerin separator operator in [place] that he has not seen for a little while now. He claims he was not drinking much for last 3 months or so and now drank the day before he came into the hospital. He claims his parents are and he has one brother who after some drug overdose. 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 Allergies/Medications Allergies: Coded Allergies: shellfish derived (Severe, THROAT SWELLING 10/28/16) latex (PER PT MD TOLD HIM HE MAY BE ALLERGIC TO LATEX 10/28/16) Home Med list Escitalopram Oxalate (Lexapro) 10 MG TABLET 10 MG PO DAILY DEPRESSION Lactulose 20 GRAM/30 ML SOLUTION 20 GM PO DAILY HIGH AMMONIA Tamsulosin HCl (Flomax) 0.4 MG CAP.ER.24H 0.4 MG PO DAILY Urinary Flow Trazodone HCl 50 MG TABLET 50 MG PO AT BEDTIME DEPRESSION AND SLEEP Past History Travel History Traveled to [place] past 21 day No Medical History Neurological: migraine, TBI EENT: NONE Cardiovascular: hypertension Respiratory: NONE Gastrointestinal: pancreatitis, LOWER GIB ESOPHAGEAL VARICES UMBILICAL HERNIA Hepatic: cirrhosis, hepatic encephalopathy Renal: NONE Musculoskeletal: NONE Psychiatric: alcohol dependence, anxiety, depression Endocrine: hypothyroidism Blood Disorders: NONE Cancer(s): NONE 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 EENTM: Denies: no symptoms. Cardiovascular: Denies: no symptoms. Respiratory: Denies: no symptoms. GI: Denies: no symptoms. Genitourinary: Denies: no symptoms. Musculoskeletal: Denies: no symptoms. Skin: Denies: no symptoms. Neurological/Psychological: Reports: see HPI, anxiety, depressed. Hematologic/Endocrine: Denies: no symptoms. Immunologic/Allergic: Denies: no symptoms. Exam & Diagnostic Data Last 24 Hrs of Vital Signs/I&O Vital Signs Date Time Temp Pulse Resp B/P Pulse O2 O2 Flow FiO2 Ox Delivery Rate 02/03 1206 63 130/69 02/03 1203 63 130/69 02/03 0808 70 144/75 02/03 0807 96.5 70 144/75 02/02 1944 97.7 69 138/69 02/02 1938 97.7 69 138/69 02/02 1626 72 128/70 02/02 1623 97.0 65 139/79 02/02 1312 97.2 63 18 125/63 100 Physical Exam General Appearance Alert, Oriented X3, Cooperative, No Acute Distress Skin No Rashes, No Breakdown, No Significant Lesion HEENT Atraumatic, PERRLA, EOMI, Mucous Membr. moist/pink Neck Supple, No JVD, No thryomegaly, +2 Carotid Pulse wo Bruit Lymphatic Cervical nl Cardiovascular Regular Rate, Normal S1, Normal S2, No Murmurs, Gallops, Rubs Lungs Clear to Auscultation, Normal Air Movement Abdomen Normal Bowel Sounds, Soft, No Tenderness, No Hepatospenomegaly, No Masses, no evidence of ascites and fairly benign on exam Neurological Exam Findings: Normal Gait, Normal Speech, Strength at 5/5 X4 Ext, Normal Tone, Sensation Intact, Cranial Nerves 3-12 NL Cranial Nerves II through XII: Within normal limits and intact Extremities No Clubbing, No Cyanosis, No Edema, No Tenderness/Swelling Assessment/Plan Assessment: This young male with a history of alcohol abuse as well as known cirrhosis and previous pancreatitis and multiple paracentesis is admitted for suicidal attempt with overdose of Prozac and alcohol. He is a known alcoholic the past has had multiple admissions in the hospital. Presently he is fairly stable from medical standpoint. His liver functions are normal although his CBC shows a low white count of 3.7 and a low platelet count 107 and his hemoglobin is 12.1 with hematocrit of 36.2. Overall he's fairly stable from medical standpoint without any acute problem at this time. He is already on lactulose and does not require any other significant treatment from medical standpoint. His AST is 57 and ALTs 53 with a total bilirubin of 1.0. There is no need for any other medical workup or treatment at this time. As Ranked By This Provider Problem List: 1. ALSCOHOL ABUSE 2. Alcoholic cirrhosis 3. Depression 4. Alcohol abuse Miscellaneous Miscellaneous Documentation Attending Case Discussed With: PRIMITIVO BERMUDEZ,JULEE King Primary Care Physician: PATIENT HAS NO PRIMARY CARE DR Patient sees these Specialists none Level of Patient Care: JESSICA Barksdale Attending MD Review Statement Attending Statement Attending MD Statement: examined this patient, reviewed EMR data (avail), discussed with nursing Attending Assessment/Plan: This young male was admitted for increased depression and suicidal attempt with overdose of his medication and alcohol. He is known cirrhotic with previous complications of cirrhosis including pancreatitis and ascites. At present he is fairly stable from medical standpoint and does not require any specific treatment or workup. He is already on lactulose and does not require any other treatment although there is no sign of any encephalopathy at this time and therefore does not even need lactulose. He'll be seen only as needed
--- NOTE | 2017-02-03 16:33 | SOCIAL WORKER TX PLAN PSYCH ---
Treatment Plan - Please Document: - Evidence that there is ongoing collaboration between - the patient and the interdisciplinary team, - including the patient's active participation and - responsibility for engaging in the treatment regimen, - and that the treatment plan is individualized and - relevant to the patient's conditions. - Treatment plan should reflect documentation indicating - that all active therapeutic efforts are included. Strengths/Capabilities: motivated for treatment. Physical Limitations (Interventions): none known DSM5/PS Stressors/Medical Prob Diagnosis' (DSM 5, Stressors, Medical): F32.9 - Unspecified Depression F10.20 - Alcohol se D/O, severe. Stressors: homeless, unemployed, financial, limited supports. Medical: migraines Current GAF: 24 Treatment Team - Responsibilities of members of the treatment team include: - Medication Management- MD or SUPERVISOR CORE DRILLING - Medication Administration and Monitoring- Nurse - Group Therapy- Occupational Therapist - 1:1 Therapy,Disch Planning,family involvement-Environmental Quality Analyst
--- NOTE | 2017-02-03 21:26 | NUR ---
PT IS CALM, COOPERATIVE WITH STAFF AND PEERS, AND COMPLIANT WITH UNIT RULES. PT IS OFTEN IN [place], INTERACTING WELL WITH OTHERS. MOOD IS STABLE, AFFECT IS EUTHYMIC TO FULL RANGE, COMMUNICATION IS ORGANIZED AND APPEARS NORMAL IS ALL RESPECTS, AND APPETITE IS NORMAL. PT DENIES SI AT THIS TIME.
[2017-02-04] VITALS (8 sets, daily range): BP systolic 123–133; BP diastolic 59–73
--- NOTE | 2017-02-04 03:00 | NUR ---
Slept well, no complaints offered.
--- NOTE | 2017-02-04 11:35 | NUR ---
PT HAS BEEN COMPLIANT AND COOPERATIVE WITH UNIT RULES. PT HAS BEEN OUT IN COMMUNITY INTERACTING WITH STAFF AND PEERS. PT IS ACTIVE IN GROUPS. PT MOOD IS STABLE WITH A FULL RANGE AFFECT. PT DENIES SI THOUGHTS. PT IS NOT SCORING ON CIWA ASSESSMENT.
--- NOTE | 2017-02-04 14:00 | CP SOUTH PROGRESS NOTE PSYCH ---
Psych (Inpt) Progress Note Progress Note Include the following elements, when applicable: Involvement in the active treatment of the patient with behavioral observations of the patient and the patient's response to the treatment. Review of the ongoing treatment process in the context of the treatment plan. Indication of how multi-disciplinary staff members are carrying out the treatment plan. Plans for future interventions and recommendations for revision of the treatment plan. Liaison with other physicians/providers. Progress Note: Case and treatment plan discussed in team meeting. The patient is a 36-year-old white male admitted on 02/02/17 after a Prozac ingestion. He carries the diagnosis unspecified depression and alcohol use disorder. Medication list reviewed. Staff reports that the patient does not have stable housing. He has a three-day paper in place and it will be expiring tomorrow. Plans to stay with a friend. Of note, the patient has a history of TBI. Patient's brother suicided around 2003. Patient seen at 12:56 PM. The patient is an ambulatory, casually dressed, bearded white male sitting in a chair in no acute distress. He is calm, polite and cooperative. There is no psychomotor agitation or retardation. Speech is normal in volume, rate and tone. Affect is calm and blunted. Patient reports doing well. Has no complaints. He is hoping to attend his friend's tomorrow at 10:30 AM. Friend in his 60s from AIDS. Patient plans to stay at girlfriend's house or at a friend's house. Affect is calm and blunted. Mood is good. Rates sad mood 0/10. Reports having a little anxiety, just trying to figure out how to attend the tomorrow. Rates anxiety 3-4/10. Denies feeling hopeless. Feels helpless when he gets migraines. Denies having a migraine now. Denies feeling worthless or guilty. Denies active and passive suicidal ideation. Denies homicidal ideation. Denies auditory and visual hallucinations and paranoid ideation. Reports sleep is good. States that he took trazodone and he finds it difficult to get up in the morning when he takes trazodone. Does not want dose reduced to 25 mg. I advised the patient that he can refuse the trazodone. Describes appetite as good and states he is on a diet. Reports always having a lot of energy. Tolerating current medications well, without complaint. We discussed his evening dosing of Prozac and that Prozac usually activates people, but he states that Prozac puts him to sleep. IMPRESSION: Slow progress. Continue present treatment plan. Anticipate likely discharge tomorrow morning to attend friend's . Patient apparently plans to go to our outpatient department for follow-up treatment.
--- NOTE | 2017-02-04 14:23 | SOCIAL WORKER PROG NOTE PSYCH ---
Social Work Progress Note Progress Note Alexis was participating in group this afternoon. He is looking to leave tomorrow and attend his friend's . He will need to leave by 10am. I scheduled outpatient appts. for him at [facility] for 02/19 2pm which would be for the intake and 02/[address] Ordoñez. I asked Alexis if I could speak with his friend Jsoeph and confirm that he will have him stay at his house starting tomorrow. Alexis didn't have a problem with that, but said he needed to wait and try and get a hold of him this afternoon because he was working. Alexis feels his headache is starting to improve and dissapate, which is helping him feel better. Talked about going to AA as part of treatment, but he wasn't really open to it due to having some negative experiences with AA in the past. He stated that he feels more in control of the drinking at this point because he is able to go by a package store without shaking and he is able to be around people without having a drink. 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 Those interactions could be definete triggers for relapse. We also discussed the importance of following up on his health. I offered to make him an appt. with [facility], because he said he didn't have a general practioner at this time. He refused and stated he would follow up if he needed in the future. I spoke with Alexis's friend Joseph and confirmed that he is okay with Alexis staying with him and his . He said that he will be trying to get him to attend some AA meetings with him. He had no concerns about him and will be planning for him to connect with him tomorrow.
--- NOTE | 2017-02-04 21:19 | NUR ---
PT IS VISIBLE ON UNIT, SOCIALIZING WITH PEERS AND WATCHING TV. COOPERATIVE AND COMPLIANT WITH STAFF. ATTENDED WRAP UP MEETING THIS EVENING. NO COMPLAINTS OR SI REPORTED. PT HAS A STABLE MOOD AND FULL RANGE AFFECT.
--- NOTE | 2017-02-05 07:15 | NUR ---
PATIENT UP TO BATHROOM ONCE, OTHERWISE SLEPT ALL NIGHT.
[2017-02-05 07:52] VITALS: BP 122/68
[2017-02-05 08:00] VITALS: BP 122/68
--- NOTE | 2017-02-05 08:04 | NUR ---
PT IS SCHEDUL[place] FOR [place] [facility] [place]. HE REPORTS HIS MOOD IS IMPROVED AND HE DENIES ANY THOUGHTS OF SUICIDE OR SELF HARM AT THIS TIME. HE AGREES TO FOLLOW UP WITH OUT PT AND HE VERBALIZES A GOOD UNDERSTANDING OF HIS MED REGIME. PT IS GIVEN EDUCATION R/T MANAGING DEPRESSION..MANAGING ALCOHOL ABUSE AND ON SUICIDE PREVENTION
[2017-02-05] MEDS ORDERED: ABILIFY5 M1 PO ×2 (08:16→08:32)
[2017-02-05] MEDS ORDERED: FLUOXETINE HCL20 M2 PO ×2 (08:16→08:32)
[2017-02-05] MEDS ORDERED: LACTULOSE20 GM/30 M PO (08:16)
--- NOTE | 2017-02-05 08:40 | SOCIAL WORKER PROG NOTE PSYCH ---
LENCHO BURGOSJOSEMIHAELA 02/05/17 0836: Social Work Progress Note Progress Note Alexis shared that his plans changed and that he will not be going to the this morning. He said his girlfriend and him were arguing yesterday and she will not be picking him up. He would like [employer] [facility] [place]. Scheduled a ride for 11am. Asked Alexis if he was upset over the argument with his girlfriend? He said no and that this is the usual. He said they have been on and off for 10 years. He smiled and didn't seem concerned. An appt. was scheduled at [facility] in [place] with the PA there, for 02/11 at 9:30am. Alexis was agreeable to this appt. after speaking with Guerda Watson APRN. Alexis is aware of his appt.'s with the [facility]. GUERDA BHATT APRN 02/05/17 1059: Social Work Progress Note Progress Note Please include, when applicable: * Interviews with the patient * Interviews with family members * Assessments linked to the treatment plan * Additions to or changes in the treatment plan along with reasons for same * Contacts with family and significant others in treatment, including family meeting(s) * Family attitudes * Community resource contacts and liaison with other clinicians/agencies
--- NOTE | 2017-02-05 08:40 | CP SOUTH PROGRESS NOTE PSYCH ---
Psych (Inpt) Progress Note Progress Note Include the following elements, when applicable: Involvement in the active treatment of the patient with behavioral observations of the patient and the patient's response to the treatment. Review of the ongoing treatment process in the context of the treatment plan. Indication of how multi-disciplinary staff members are carrying out the treatment plan. Plans for future interventions and recommendations for revision of the treatment plan. Liaison with other physicians/providers. Progress Note: I discussed this patient's progress to date, current mental status, treatment process in the context of the treatment plan, and discharge planning with staff/ team in the daily morning inpatient team meeting. I also met with the patient myself in individual session. S: "I feel fine." O: Current Medications Sig/Zafar Start time Last Medication Dose Route Stop Time Status Admin Aripiprazole 5 MG 02/03 DCD 02/04 PO 1925 Fluoxetine HCl 20 MG 02/04 DCD 02/04 PO 2208 Ibuprofen 400 MG Q4P PRN 02/02 1530 DCD 02/04 PO 0628 Lactulose 20 GM DAILY 02/02 1519 DCD 02/05 PO 0939 Lorazepam 1 MG Q2 HRS NEEDED PRN 02/03 1000 DC PO Lorazepam 2 MG Q2 HRS NEEDED PRN 02/03 1000 DC PO Tamsulosin HCl 0.4 MG DAILY 02/02 1520 DC PO Trazodone HCl 50 MG AT BEDTIME PRN 02/05 0817 DCD PO Trazodone HCl 50 MG AT BEDTIME 02/02 2200 DC 02/03 PO 2217 Vital Signs Date Time Temp Pulse Resp B/P B/P Pulse O2 O2 Flow FiO2 Mean Ox Delivery Rate 02/05 0800 96.9 69 122/68 02/05 0752 96.9 69 122/68 02/04 1940 96.4 76 123/59 02/04 1937 96.4 76 123/59 02/04 1606 63 133/68 02/04 1603 63 133/68 A: Met with patient today on the date of discharge. He presented alert and oriented to person, place, time and situation. Eye contect was appropriate. Speech was normal in rate, tone and volume. Affect was full-range, non-labile. Mood was "fine." He reported depression of 1/10 (10 being the worst) and anxiety of 0/10 (10 being the worst). He denied feeling hopeless, helpless, worthless, and guilty. He denied passive and active suicidal ideation, plans and intent. He denied homicidal ideation. He reported protective factors of his "friends" and "girlfriend." He stated and also believed he will not harm himself or others. He denied urges/cravings to use alcohol. He reported his sleep and appetite were good. Thought process was organized and goal-directed. Cognition was grossly intact. He denied auditory and visual hallucinations, paranoia, or delusions. He reported tolerating all medications well and denied untoward effects. He refused prescription for Flomax. He reported feeling safe and ready for discharge. P: 1. Discharge today to friend's home. 2. F/u with [facility] on 02/19/17 (intake) and 02/26/17 (medication management). 3. Discharge prescriptions printed, reviewed and provided to patient on discharge. 4. Patient was advised to f/u with [facility]ochet at [facility] in [place], [place]. Patient refused for primary treatment team to schedule him a follow-up appointment. Reported he will schedule appointment himself. 5. [facility] primary care appointment scheduled with HEATH Guerra on 02/11/17 at 9:30AM. 6. In the event of an emergency, call 911/go to nearest emergency department. Patient verbalized understanding of instruction.
--- NOTE | 2017-02-05 08:56 | DISCHARGE SUMMARY REPORT-PSYCH ---
Visit Information Visit Dates/Diagnosis' Admission Date: 02/02/17 Discharge Date: 02/05/17 Reason for Admission: S/p overdose on Prozac without suicidal intent. Psy Discharge Primary Diag: Unspecified Depressive Disorder, s/p overdose in the absence of suicidal intent. Psy Discharge Secondary Diag: Alcohol use disorder; Cocaine use disorder; Pancreatitis; Cirrhosis; hx of hepatic encephalopathy; hx of lower GI bleed; hx of esophageal varices; umbilical hernia; hx HTN. Hospital Course Significant Lab Findings: Lab ALT 53 U/L 01/30/17 2303 AST 57 U/L 01/30/172302 Alkaline Phosphatase 90 U/L 01/30/17 2303 Ammonia 61 umol/L H 02/04/17 0610 Hct 36.2 % L 01/30/173 Hgb 12.1 G/DL L 01/30/172302 Plt Count 107 /CUMM L 01/30/173 RBC 3.92 /CUMM L 01/30/173 RDW 14.8 % H 01/30/173 WBC 3.7 /CUMM L 01/30/17 2303 Serum Alcohol 129.0 MG/DL 01/30/17 2303 Urine Cocaine Screen > 1000 NG/ML H 01/30/172136 Course Complications: None. Consultations: The patient was seen for admission history and physical by Dr. Jamil Whitten. Please see his note for additional information. Allergies: Coded Allergies: shellfish derived (Severe, THROAT SWELLING 10/28/16) latex (PER PT MD TOLD HIM HE MAY BE ALLERGIC TO LATEX 10/28/16) Hospital Course/TX Response: The patient was monitored on the unit for safety, mood, suicidal ideation, cocaine and alcohol withdrawal. Patient was monitored on CIWA protocol however did not score. There was no evidence of alcohol withdrawal. He participated in multimodal treatments on the unit. He was recommended a trial of Lexapro however refused, and was only agreeable to retrialing the antidepressant Prozac. Prozac was restarted at 20mg nightly for depression. He was educated on the activating properties of Prozac, however insisted that he take it at night as he felt it helped him to fall asleep. Abilify 5mg was started nightly for mood stabilization and as an adjunct to Prozac. Lactulose 20g daily was continued which was recommended by Dr. Jamil Whitten. During the hospital course, the patient's mood and affect improved. He consistently denied suicidal ideation and denied that overdose had been a suicide attempt. The patient would not allow any family or friends to be involved in his inpatient level of care, however did allow Fabiana Coates LCSW to confirm that he would be residing with his friend Joseph post-discharge. Patient's friend Joseph expressed no safety concerns about the patient's discharge and also reported that he would be encouraging him to attend AA meetings post-discharge. Patient was agreeable to follow-up with [facility] services for medication management and group therapy. The patient's friend Joseph was also in favor of this discharge plan. The patient was offered a referral to a neurologist given his chronic history of migraines. He however refused referral. He was also recommended to follow-up with his distribution warehouse manager at [facility] given his elevated ammonia level. I offered to schedule him an appointment, however he refused this and reported he would make his own appointment and follow-up. The patient was agreeable to PCP referral through [facility]. A primary care appointment was scheduled with HEATH Guerra on 02/11/17 at 9:30AM in [place], [place]. [facility] appointments were scheduled on 02/19/17 (intake) and (medication management). On the date of discharge, 02/05/17, he presented alert and oriented to person, place, time and situation. Eye contact was appropriate. Speech was normal in rate, tone and volume. Affect was full-range, non-labile. Mood was "fine." He reported depression of 1/10 (10 being the worst) and anxiety of 0/10 (10 being the worst). He denied feeling hopeless, helpless, worthless, and guilty. He denied passive and active suicidal ideation, plans and intent. He denied homicidal ideation. He reported protective factors of his "friends" and "girlfriend." He stated and also believed he will not harm himself or others. He denied urges/cravings to use alcohol. He reported his sleep and appetite were good. Thought process was organized and goal-directed. Cognition was grossly intact. He denied auditory and visual hallucinations, paranoia, or delusions. He reported tolerating all medications well and denied untoward effects. He refused prescription for Flomax. He reported feeling safe and ready for discharge. Discharge HBIPS - Tobacco Use Treatment Offered Post DC Medications Offered: NA-No Tob Use >30 days Post DC Tobacco Treatment Plan: NA-No Tobacco use >30days - EtOH/Drug Use D/O Treatment Offered Post DC Medications Offered: Ref Med EtOH/Drug Use D/O Post DC EtOH/SubAbuse TX Plan: Refused Post DC Tx Pgm Metabolic Screening - Screen if on a Neuroleptic Medication - Metabolic screening should include: - Blood Pressure, BMI, Glucose or Hgb A1c, & a - Lipid profile from within the past 365 days. Metabolic Screening () Not Applicable, patient not on a neuroleptic. OR ([X]) Patient on a neuroleptic(s) . Enter below results for Glucose or Hemoglobin A1C, and lipid panel if obtained during the last 365 days. BMI: 31.000 Blood Pressure: 122/68 Laboratory Results (If applicable): Lab Cholesterol 123 MG/DL 02/04/17 0610 Cholesterol/HDL Ratio 3 % 02/04/17 0610 Glucose 128 mg/dL H 01/30/17 2303 HDL Cholesterol 49 mg/dL 02/04/17 0610 LDL Cholesterol, Calc 66 mg/dL 02/04/17 0610 Triglycerides 40 mg/dL 02/04/17 0610 Discharge Instructions General Discharge Information Discharge Medications: Discharge Medications- (Dose, route, freq, indication): HOME MEDICATION LIST START taking these NEW Home Medications: Lactulose Dose: ORAL, DAILY for high Qty: 14 Printed (Lactulose) 20 GRAM/ 20 Gram ammonia Refills: 0 30 ML SOLUTION Take 20gm/30ml solution by mouth daily. Last Taken:02/04/17 Time:1900 Fluoxetine HCl Dose: ORAL, 1999 for Qty: 14 Printed (Fluoxetine HCl) 20 20 Milligram depression/anxiety Refills: 1 MG CAPSULE Take 1 capsule by mouth every night. Last Taken:02/04/17 Time:0 Aripiprazole Dose: ORAL, Every night for Qty: 14 Printed (Abilify) 5 MG 5 Milligram mood stabilization Refills: 1 TABLET Take 1 tablet by mouth every night. Last Taken:02/04/17 Time:1999 [facility] [id number], [place] [id number] Multiple Neuroleptics: () Not Applicable OR Document below three failed attempts at monotherapy, or a plan to taper to monotherapy, or augmentation of Clozapine. () Patient's Diet: Regular. Patient's Activity: No restrictions. DC Disposition: Patient to return to his friend's home. Recommendations: The patient was advised to please take his medications as prescribed. He was advised to abstain from all substances, attend AA meetings and to obtain a sponsor for support in sobriety. He was advised to follow-up with all scheduled outpatient appointments. He was advised to follow-up with his distribution warehouse manager. He refused an outpatient neurology referral for chronic history of migraines. He was advised that in the event of an emergency to call 911/go to nearest emergency department. He verbalized understanding of all instructions. Referred To: [facility] [address] [place] [address] [phone]) [phone] *Intake appointment with Sandra Fang LCSW scheduled on 02/19/17 at 2PM. [facility] [address] [place] [address] [phone])[phone] *Medication appointment scheduled with Dr. Ordoñez on 02/26/17 at 3PM. [facility] - Primary Care [address] [facility] [address] [place] [address] [phone])[phone] *Appointment scheduled with HAETH Guerra on 02/11/17 at 9:30AM. Copies To: NICHOLE ESCOBEDO; [facility]
--- NOTE | 2017-02-09 17:45 | IP INCIDENTAL NOTE PSYCH ---
Incidental Note Notation: I was requested to evaluate patient on crisis evaluation today after patient represented to ED d/t intoxication on etoh and feeling fearful of his living arrangement at his friend's home where friend was using crack. Patient reported not knowing what else to do and thus presented to ED. On assessment, he denied passive and active suicidal ideation, plans or intent. Denied AVH, PI. No evidence of delusions. Patient safe for discharge and to f/u at [facility] tomorrow on 02/19/17 at 10AM. Please see crisis evaluation for further information.
== END 2017-02-05 12:28 | DRG 754 ==
LOC: ERH → ERHI 02-02 09:46 → CP SOUTH 02-02 09:46
PROVIDERS: Pediatrics; Registered Nurse Psychiatric/Mental Health; ADMIT Psychiatry & Neurology Addiction Medicine
DX: F32.9 Major depressive disorder, single episode, unspecified (principal); K85.90 Acute pancreatitis without necrosis or infection, unspecified; K74.60 Unspecified cirrhosis of liver; Z72.89 Other problems related to lifestyle; F14.90 Cocaine use, unspecified, uncomplicated
CPT/HCPCS: 36415; 80307; 93005; 93010; G0463; G0480; J3490

== ENCOUNTER 2017-02-08 22:31 | Emergency (ER) | payer OTHER ==
[~2017-02-08 22:31] MED LIST changes: +ABILIFY5 M1 PO; +FLUOXETINE HCL20 M2 PO
--- NOTE | 2017-02-08 22:49 | ED PSYCHIATRIC COMPLAINT ---
See Addendum History of Present Illness General Chief Complaint: Psychiatric Related Complaint Stated Complaint: BIBA SI Source: patient Exam Limitations: no limitations Vital Signs & Intake/Output Vital Signs & Intake/Output Vital Signs Date Time Temp Pulse Resp B/P B/P Pulse O2 O2 Flow FiO2 Mean Ox Delivery Rate 02/09 1129 97.0 90 18 156/90 97 Room Air 02/09 0930 97.1 82 18 132/70 97 Room Air 02/09 0730 98.0 70 18 122/68 98 Room Air 02/09 0529 977.7 67 16 104/52 99 02/08 2252 96.4 79 18 125/71 98 Room Air ED Intake and Output 02/09 0000 02/08 1200 Intake Total Output Total Balance Patient 160 lb Weight Allergies Coded Allergies: shellfish derived (Severe, THROAT SWELLING 10/28/16) latex (PER PT MD TOLD HIM HE MAY BE ALLERGIC TO LATEX 10/28/16) Reconcile Medications Aripiprazole (Abilify) 5 MG TABLET 5 MG PO QPM mood stabilization Take 1 tablet by mouth every night. Fluoxetine HCl 20 MG CAPSULE 20 MG PO 2000 depression/anxiety Take 1 capsule by mouth every night. Lactulose 20 GRAM/30 ML SOLUTION 20 GM PO DAILY high ammonia Take 20gm/30ml solution by mouth daily. Triage Note: PER PT "HERE FOR THE SAME THING" PER PT TOOK #10 5 MG ABILIFY. FILLED 02/05/17 FOR 14 TABS, BOTTLE EMPTY. PT REQUESTS A ROOM UPON ARRIVAL. Triage Nurses Notes Reviewed? yes Onset: Gradual Duration: week(s):, waxing and waning Timing: recent history Severity: moderate Associated Symptoms: anxiety, suicidal ideation HPI: 36 yo gentleman h/o depression, recently admitted for suicidality, returns with suicidality. He reports, "If I had a gun, I would probably kill myself... I was admitted, but I talked myself out of it... It's my neighbors... They are doing crack and are trying to get me into it... and I don't do drugs." He denies HI/Hallucinations. He is otherwise well. (ONI BERMUDEZ,KEE Hong) Past History Travel History Traveled to [place] past 21 day No Medical History Any Pertinent Medical History? 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 No (ONI BERMUDEZ,KEE Hong) Review of Systems Review of Systems Constitutional: Reports: no symptoms. EENTM: Reports: no symptoms. Respiratory: Reports: no symptoms. Cardiovascular: Reports: no symptoms. GI: Reports: no symptoms. Genitourinary: Reports: no symptoms. Musculoskeletal: Reports: no symptoms. Skin: Reports: no symptoms. Neurological/Psychological: Reports: no symptoms. Hematologic/Endocrine: Reports: no symptoms. Immunologic/Allergic: Reports: no symptoms. All Other Systems: Reviewed and Negative (ONI BERMUDEZ,KEE Hong) Physical Exam Physical Exam General Appearance: well developed/nourished, mild distress Head: atraumatic Eyes: Bilateral: PERRL, EOMI. Ears, Nose, Throat: normal pharynx, normal ENT inspection, hearing grossly normal Neck: normal inspection, supple Respiratory: normal breath sounds Cardiovascular: regular rate/rhythm Gastrointestinal: soft, non-tender Extremities: normal range of motion Neurological/Psychiatric: no motor/sensory deficits, awake, anxious, flat, oriented x 3 Appearance/Memory/Insight: disheveled Behavoir/Eye Contact/Speech: cooperative Thoughts/Hallucinations: no apparent hallucination Skin: intact, normal color, warm/dry SAD PERSONS SAD PERSONS Response Value Male Sex? yes 1 Depression/Hopelessness? yes 2 Previous Attempts/Psych Care yes 1 Excessive Ethanol/Drug Use? yes 1 Single//? yes 1 Social Support? has no support 1 Total 7 SAD PERSONS Done? yes (ONI BERMUDEZ,KEE Hong) Progress Differential Diagnosis: drugs, etoh, depression, paranoia vs other. Plan of Care: Orders Procedure Date/time Status Regular Diet 02/09 B Active Continuous Observation Monitor 02/09 0748 Active Continuous Observation Monitor 02/09 2252 Active ED CRISIS PSYCH CONSULT 02/09 2252 Active URINE DRUG SCREEN FOR ER ONLY 02/08 2249 Complete ETHANOL 02/08 2249 Complete COMPREHENSIVE METABOLIC PANEL 02/08 2249 Complete CBC WITHOUT DIFFERENTIAL 02/08 2249 Complete Current Medications Sig/Zafar Start time Last Medication Dose Stop Time Status Admin Aripiprazole 5 MG DAILY 02/09 1000 UNVr (Abilify) Fluoxetine HCl 20 MG DAILY 02/09 1000 UNVr (Prozac) Laboratory Tests 02/08/17 2350: Urine Opiates Screen < 100.00, Methadone Screen < 40, Barbiturate Screen 244 H, Ur Phencyclidine Scrn < 6.00, Amphetamines Screen < 100, U Benzodiazepines Scrn < 85, Urine Cocaine Screen < 50, Urine Cannabis Screen < 5.00 02/08/17 2320: Anion Gap 15, Estimated GFR > 60, BUN/Creatinine Ratio 8.8, Glucose 76, Calcium 8.6, Total Bilirubin 1.1, AST 81 H, ALT 77 H, Alkaline Phosphatase 75, Total Protein 7.1, Albumin 3.7, Globulin 3.4, Albumin/Globulin Ratio 1.1, CBC w Diff NO MAN DIFF REQ, RBC 4.31 L, MCV 90.9, MCH 30.4, RDW 14.1, MPV 9.5, Gran % 47.0 , Lymphocytes % 34.6, Monocytes % 10.6 H, Eosinophils % 7.3 H, Basophils % 0.5 , Absolute Granulocytes 2.2, Absolute Lymphocytes 1.6, Absolute Monocytes 0.5, Absolute Eosinophils 0.3, Absolute Basophils 0, PUBS MCHC 33.4, Serum Alcohol 155.0 Hand-Off Endorsed To: HERNANDO GUERRA DO Endorsed Time: 0700 Pending: consult, labs (ONI BERMUDEZ,KEE Hong) Departure Departure Disposition: STILL A PATIENT Condition: Stable Clinical Impression Primary Impression: Depression Secondary Impressions: Alcohol intoxication Referrals: PATIENT HAS NO PRIMARY CARE DR (PCP/Family) Departure Forms: Customer Survey General Discharge Information (ONI BERMUDEZ,KEE Hong) Departure Comments 02/09/17 The patient was seen, evaluated and cleared by Crisis (HERNANDO GUERRA DO)
[2017-02-08 23:50] LABS: ABSOLUTE BASOPHIL COUNT 0 /CUMM (0.0-0.2); ABSOLUTE EOSINOPHIL COUNT 0.3 /CUMM (0.0-0.7); ABSOLUTE GRANULOCYTE CT 2.2 /CUMM (1.4-6.5); ABSOLUTE LYMPH COUNT 1.6 /CUMM (1.2-3.4); ABSOLUTE MONOCYTE COUNT 0.5 /CUMM (0.10-0.60); BASOPHIL % 0.5 % (0.0-2.0); EOSINOPHIL % 7.3 % (0-5); HEMATOCRIT 39.2 % (42-52); MEAN CORPUSCULAR HGB 30.4 PG (27.0-31.0); MEAN CORPUSCULAR HGB CONC 33.4 G/DL (33.0-37.0); MEAN CORPUSCULAR VOLUME 90.9 FL (80.0-94.0); MEAN PLATELET VOLUME 9.5 FL (7.4-10.4); PLATELET COUNT 124 /CUMM (130-400); RBC DISTRIBUTION WIDTH 14.1 % (11.5-14.5); RED BLOOD CELL CT 4.31 /CUMM (4.70-6.10); WHITE BLOOD CELL COUNT 4.7 /CUMM (4.8-10.8)
--- NOTE | 2017-02-09 10:23 | ED PSYCH CRISIS CONSULTATION ---
Crisis Consult Basic Assessment Date of Consult: 02/09/17 Responsible Person/Accompanied By: Adore Lundy, close friend Insurance Authorization: Insurance #1: Insurance name: DOLORES DOUGLAS Phone number: Policy number: [id number] Group number: Authorization number: ED Provider: Patient's ED Provider: MIKE BUNN MD Primary Care Physician: Patient's PCP: PATIENT HAS NO PRIMARY CARE DR PCP's Phone Number: Current Psychiatrist: will be Andry [facility] Chief Complaint: Psychiatric Related felt unsafe Patient's Quote: "I just had to get out of that place. My friend pushing me to do crack" Present Illness: Patient came to hospital on 02-08-17, late at night, as he was fearful of living arrangement, reporting that he feels that he had made a bad decision by going to this particular friends home when he was discharged from [facility]. Patient reports that he had a variety of places to stay, and he thought that the person he had chosen was o.k. as he had been doing some jobs for him in the past. Patient states that he did not realize that friend was so into taking drugs, and found he was disgusted by the smell of the crack and even the cannabis. Patient is alcoholic and was recently d/c from [facility] for some suicdal ideation and Alcohol dependence. Patient found it difficult to resist the drinking and the drug use. He left the home and did not know where to go so he came to hospital, and stated he felt suicidal, but states that he was not suicdal, but needed to get away from the house, and needed a place to go. Patient has Several better options of places to stay, and often stays with long- term girlfriend of 10 years. Patient was very rational in explaining his actions, and states has IOP up coming, but is absoluetly safe, and he wants to go back to work soon . He is alert and oriented and gave me name of closest friend Adore Lundy, who vouched for patient stating that she had absolutely no qualmms about his safety and said that he wants to get back on track, and stay sober. He has not had drug involvement. Patient has the stress of being able to work due to 2 felonies for not showing up for court, but he does have some leads and part-time work. Patient committed to IOP, and states absolutely no suicidal ideation, and is forward thinking. Patient's Address: [address] [place] [address] Other Phone Number: Who Do You Live With? Patient/Self Family/Informants Interviewed: Adore Lundy best friend Allergies - Coded Allergies: shellfish derived (Severe, THROAT SWELLING 10/28/16) latex (PER PT MD TOLD HIM HE MAY BE ALLERGIC TO LATEX 10/28/16) Current Medications - Scheduled Medications Aripiprazole (Abilify) 5 MG TABLET 5 MG PO QPM mood stabilization #14 TAB Prescribed by GUERDA BHATT APRN on 02/05/17 Fluoxetine HCl 20 MG CAPSULE 20 MG PO 1999 depression/anxiety #14 CAP Prescribed by GUERDA BHATT APRN on 02/05/17 Lactulose 20 GRAM/30 ML SOLUTION 20 GM PO DAILY high ammonia #14 AJ Prescribed by GUERDA BHATT APRN on 02/05/17 Laboratory Results: Laboratory Tests 02/08/17 2350: Urine Opiates Screen < 100.00, Methadone Screen < 40, Barbiturate Screen 244 H, Ur Phencyclidine Scrn < 6.00, Amphetamines Screen < 100, U Benzodiazepines Scrn < 85, Urine Cocaine Screen < 50, Urine Cannabis Screen < 5.00 02/08/17 2320: Anion Gap 15, Estimated GFR > 60, BUN/Creatinine Ratio 8.8, Glucose 76, Calcium 8.6, Total Bilirubin 1.1, AST 81 H, ALT 77 H, Alkaline Phosphatase 75, Total Protein 7.1, Albumin 3.7, Globulin 3.4, Albumin/Globulin Ratio 1.1, CBC w Diff NO MAN DIFF REQ, RBC 4.31 L, MCV 90.9, MCH 30.4, RDW 14.1, MPV 9.5, Gran % 47.0 , Lymphocytes % 34.6, Monocytes % 10.6 H, Eosinophils % 7.3 H, Basophils % 0.5 , Absolute Granulocytes 2.2, Absolute Lymphocytes 1.6, Absolute Monocytes 0.5, Absolute Eosinophils 0.3, Absolute Basophils 0, PUBS MCHC 33.4, Serum Alcohol 155.0 Past History Past Medical History Neurological: migraine, TBI EENT: NONE Cardiovascular: hypertension Respiratory: NONE Gastrointestinal: pancreatitis, LOWER GIB ESOPHAGEAL VARICES UMBILICAL HERNIA Hepatic: cirrhosis, hepatic encephalopathy Renal: NONE Musculoskeletal: NONE Psychiatric: alcohol dependence, anxiety, depression Endocrine: hypothyroidism Blood Disorders: NONE Cancer(s): NONE FLOORHAND/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 Physical Limitations (Interventions): none known Psychiatric Treatment History Psych Treatment Psychiatric Treatment Yes Inpatient Treatment Yes Outpatient Treatment Yes Location of Treatment [facility] Reason for Treatment depression and + S.I. Dates of Treatment past 3 years 2 admissions Response to Treatment good Diagnosis by History: Depression Unpecified Substance Use/Abuse History Drug Use/Abuse Substances Used/Abused Yes Substance Used/Abused Alcohol First Use 17 Last Used yesterday How much used/taken can drink couple 6 packs How often was daily For how long much of past 12 years Route of use p.o. Substance Abuse Treatment Substance Abuse Treatment Past Substance Abuse [place] No Comments: wants IOP Current Mental Status Mental Status Orientation: Person, Place, Situation Affect: WNL Speech: WNL Neuro-vegetative: WNL Appearance Appearance- Dress/Hygiene: neat Behaviors Thought Process: Logical/Rational Thought Content: WNL Memory: WNL Insight: WNL SI/HI Risk Assessment Past Suicidal Ideation/Attempts Yes Current Suicidal Ideation/Att No Past Homicidal Ideation/Att: No Current Homicidal Ideation/Attempts No Degree of Intent: None Risk Factors: SA/MH hospitalized, substance abuse, male, limited support Lethality Ratin (mild) PTSD Checklist PTSD Done? patient declined ED Management Sitter: Yes Restraints: No DSM5/PS Stressors/Medical Prob Diagnosis' (DSM 5, Stressors, Medical): Major Depressive Disorder, moderate Current GAF: 40 Comments: Patient has positive plan Departure Disposition Psych Medical Clearance Date: 02/09/17 Medically Cleared at: 0900 Time Started: 0910 Time Ended: 55 Psychiatrist Consulted: Mike Cruz MD Date Disposition Established: 02/09/17 Time Disposition Established: 1040 Plan for Disposition - Modality: IOP Facility: [facility] Follow-up Appt Date: 02/19/10 Follow-Up Appt Time: 1000 Contact: Lindsey Rationale for Disposition: pt not suicidal Safe for d/c Referrals PATIENT HAS NO PRIMARY CARE DR (PCP/Family)
[2017-02-09 11:29] VITALS: BP 156/90
== END 2017-02-09 12:38 ==
LOC: ERH 22:31
PROVIDERS: Pediatrics
DX: F32.9 Major depressive disorder, single episode, unspecified (principal); F10.129 Alcohol abuse with intoxication, unspecified
CPT/HCPCS: 80307; G0463; G0480

== ENCOUNTER 2017-02-13 23:35 | Emergency (ER) | payer OTHER ==
[~2017-02-13] VITALS: Ht 172.7 cm; Wt 99.8 kg
--- NOTE | 2017-02-13 23:38 | ED GENERAL ADULT ---
History of Present Illness General Chief Complaint: Chest Pain Stated Complaint: BIBA CP and SI Source: patient Exam Limitations: intoxication Vital Signs & Intake/Output Vital Signs & Intake/Output Vital Signs Date Time Temp Pulse Resp B/P B/P Pulse O2 O2 Flow FiO2 Mean Ox Delivery Rate 02/14 0721 97.6 85 18 110/57 02/14 0213 96.0 82 20 102/52 96 Room Air 02/14 0011 Room Air 02/13 2341 96.8 87 18 107/55 96 Room Air ED Intake and Output 02/14 0000 02/13 1200 Intake Total Output Total Balance Patient 220 lb Weight Weight Reported by Patient Measurement Method Allergies Coded Allergies: shellfish derived (Severe, THROAT SWELLING 10/28/16) latex (PER PT MD TOLD HIM HE MAY BE ALLERGIC TO LATEX 10/28/16) Reconcile Medications Aripiprazole (Abilify) 5 MG TABLET 5 MG PO QPM mood stabilization Take 1 tablet by mouth every night. Fluoxetine HCl 20 MG CAPSULE 20 MG PO 2000 depression/anxiety Take 1 capsule by mouth every night. Lactulose 20 GRAM/30 ML SOLUTION 20 GM PO DAILY high ammonia Take 20gm/30ml solution by mouth daily. Triage Nurses Notes Reviewed? yes Onset: Gradual Duration: day(s):, waxing and waning Timing: recent history Injury Environment: street Severity: moderate Modifying Factors: Improves With: rest. Associated Symptoms: chest pain, nausea, weakness, suicidal ideation HPI: 36-year-old gentleman history of traumatic brain injury presents with several concerns. Per the medics, he had been drinking during the day and reported to them nausea and vomiting. He states that he last vomited earlier this morning. He had been drinking throughout the day, several shots as well as wine and beer. Per the medics, he has suicidal ideation with a plan to shoot himself in the head with a gun. Upon arrival, he neither confirms nor denies this. Also states that starting this evening he developed upper chest discomfort, "like someone was sitting on my chest." En route, his systolic blood pressure was in the 90s. (ONI BERMUDEZ,KEE Hong) Past History Travel History Traveled to [place] past 21 day No Medical History Any Pertinent Medical History? 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 No (ONI BERMUDEZ,KEE Hong) Review of Systems Review of Systems Constitutional: Reports: no symptoms. EENTM: Reports: no symptoms. Respiratory: Reports: no symptoms. Cardiovascular: Reports: no symptoms. GI: Reports: no symptoms. Genitourinary: Reports: no symptoms. Musculoskeletal: Reports: no symptoms. Skin: Reports: no symptoms. Neurological/Psychological: Reports: no symptoms. Hematologic/Endocrine: Reports: no symptoms. Immunologic/Allergic: Reports: no symptoms. All Other Systems: Reviewed and Negative (ONI BERMUDEZ,KEE Hong) Physical Exam Physical Exam General Appearance: well developed/nourished, no apparent distress Head: atraumatic, normal appearance Eyes: Bilateral: normal appearance. Ears, Nose, Throat: normal pharynx, normal ENT inspection Neck: normal inspection, supple, full range of motion Respiratory: normal breath sounds, chest non-tender, no respiratory distress, quiet respiration, lungs clear Cardiovascular: regular rate/rhythm Gastrointestinal: normal bowel sounds, soft, non-tender, no organomegaly Back: normal inspection, normal range of motion Extremities: normal inspection Neurologic/Psych: no motor/sensory deficits, awake, alert, oriented x 3, patient neither confirms nor denies suicidal ideation Skin: intact, normal color, warm/dry Core Measures ACS in differential dx? No CVA/TIA Diagnosis: No Severe Sepsis Present: No Septic Shock Present: No (ONI BERMUDEZ,KEE Hong) Progress Differential Diagnoses I considered the following diagnoses in my evaluation of the patient: TBI versus alcohol intoxication Chest pain could be reflux versus cardiac versus musculoskeletal in origin Plan of Care: Orders Procedure Date/time Status Regular Diet 02/14 L Active Continuous Observation Monitor 02/14 0819 Active ED CRISIS PSYCH CONSULT 02/14 0706 Active TROPONIN LEVEL 02/14 0400 Complete EKG 02/14 0400 Active Continuous Observation Monitor 04/29 0000 Active URINE DRUG SCREEN FOR ER ONLY 02/13 2338 Complete TROPONIN LEVEL 02/13 2338 Complete ETHANOL 02/13 2338 Complete COMPREHENSIVE METABOLIC PANEL 02/13 2338 Complete CBC WITHOUT DIFFERENTIAL 02/13 2338 Complete EKG 02/13 2337 Active Laboratory Tests 02/14/17 0354: Troponin I < 0.01 02/14/17 0006: Urine Opiates Screen < 100.00, Methadone Screen < 40, Barbiturate Screen 117, Ur Phencyclidine Scrn < 6.00, Amphetamines Screen < 100, U Benzodiazepines Scrn < 85, Urine Cocaine Screen < 50, Urine Cannabis Screen < 5.00 02/13/17 2358: Anion Gap 15, Estimated GFR > 60, BUN/Creatinine Ratio 8.9, Glucose 94, Calcium 8.2 L, Total Bilirubin 1.1, AST 49, ALT 48, Alkaline Phosphatase 90, Troponin I < 0.01, Total Protein 6.6, Albumin 3.5, Globulin 3.1, Albumin/Globulin Ratio 1.1 , CBC w Diff NO MAN DIFF REQ, RBC 4.02 L, MCV 89.6, MCH 30.1, RDW 14.7 H, MPV 9.3, Gran % 36.5 L, Lymphocytes % 45.0, Monocytes % 11.0 H, Eosinophils % 6.9 H, Basophils % 0.6, Absolute Granulocytes 1.7, Absolute Lymphocytes 2.1, Absolute Monocytes 0.5, Absolute Eosinophils 0.3, Absolute Basophils 0, PUBS MCHC 33.6, Serum Alcohol 249.0 CXR Impression: no acute abnormality, no infiltrates, normal size heart, normal mediastinum Initial ED EKG: normal axis, normal intervals, normal p-waves, normal QRS complex, normal sinus rhythm Hand-Off Endorsed To: PAOLA BERMUDEZ,YOU Real Comments: PATIENT: VITA LOYD PRESENT AGE: 36 PATIENT ACCOUNT NO: [id number] : 79 LOCATION: [facility] ORDERING PHYSICIAN: KEE BUNN MD SERVICE DATE: 02/13/17 EXAM TYPE: RAD - XRY-PORTABLE CHEST XRAY EXAMINATION: XR PORTABLE CHEST CLINICAL INFORMATION: Chest pain. COMPARISON: 07/19/2015 TECHNIQUE: Portable frontal view of the chest was obtained. FINDINGS: Low lung volumes. No consolidation, edema, or effusion. No pneumothorax. The cardiomediastinal silhouette is unchanged. No acute osseous abnormality. IMPRESSION: Hypoexpanded lungs with no acute pulmonary findings. DICTATED BY: ASHISH DERAS MD DATE/TIME DICTATED:02/14/1758 END MAKER:HOLDEN DATE/TIME TRANSCRIBED:02/14/1758 CONFIDENTIAL, DO NOT COPY WITHOUT APPROPRIATE AUTHORIZATION. <Electronically signed in Other Vendor System> SIGNED BY: ASHISH DERAS MD 02/14 (ONI BERMUDEZ,KEE Hong) Comments: Patient has been seen and evaluated by the vertical borer. Patient is stable for discharge. (PAOLA BERMUDEZ,YOU Real) Departure Departure Condition: Stable Clinical Impression Primary Impression: Alcohol intoxication Secondary Impressions: Chest pain, Depression Referrals: NICHOLE ESCOBEDO (PCP/Family) Departure Forms: Customer Survey General Discharge Information Comments EKG benign x 2, trop neg x 2... pt safe for evaluation by crises team in AM. Pt sleeping comfortably in ED. (KEE BUNN MD) Departure Disposition: HOME OR SELF CARE Additional Instructions: Follow-up as per the recommendations of vertical borer. (PAOLA BERMUDEZ,YOU Real) Critical Care Note Critical Care Note Critical Care Time: non-applicable (ONI BERMUDEZ,KEE Hong)
[2017-02-14 00:13] LABS: ABSOLUTE BASOPHIL COUNT 0 /CUMM (0.0-0.2); ABSOLUTE EOSINOPHIL COUNT 0.3 /CUMM (0.0-0.7); ABSOLUTE GRANULOCYTE CT 1.7 /CUMM (1.4-6.5); ABSOLUTE LYMPH COUNT 2.1 /CUMM (1.2-3.4); ABSOLUTE MONOCYTE COUNT 0.5 /CUMM (0.10-0.60); BASOPHIL % 0.6 % (0.0-2.0); EOSINOPHIL % 6.9 % (0-5); GRANULOCYTE % 36.5 % (42.2-75.2); MEAN CORPUSCULAR HGB 30.1 PG (27.0-31.0); MEAN CORPUSCULAR HGB CONC 33.6 G/DL (33.0-37.0); MEAN CORPUSCULAR VOLUME 89.6 FL (80.0-94.0); MEAN PLATELET VOLUME 9.3 FL (7.4-10.4); PLATELET COUNT 128 /CUMM (130-400); RBC DISTRIBUTION WIDTH 14.7 % (11.5-14.5); RED BLOOD CELL CT 4.02 /CUMM (4.70-6.10); WHITE BLOOD CELL COUNT 4.8 /CUMM (4.8-10.8)
--- NOTE | 2017-02-14 01:09 | RADIOLOGY REPORT ---
EXAMINATION: XR PORTABLE CHEST CLINICAL INFORMATION: Chest pain. COMPARISON: 07/19/2015 TECHNIQUE: Portable frontal view of the chest was obtained. FINDINGS: Low lung volumes. No consolidation, edema, or effusion. No pneumothorax. The cardiomediastinal silhouette is unchanged. No acute osseous abnormality. IMPRESSION: Hypoexpanded lungs with no acute pulmonary findings.
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
--- NOTE | 2017-02-14 09:26 | ED PSY CRISIS COLLATERAL NOTE ---
Collateral Note Collateral Note Family/Inform/Jennifer Contacts: After inquiring with pt. about what collateral we could get, pt. called his friend Manju Lundy . she stated that she had known Alexis "for years" and that he used to live with her. She stated she did not feel Alexis was at risk to hurt himself or others and that she would call him to check on him later today. She stated that she was ok with the plan for Alexis to be discharged, if that plan was oked by the psychiatrist.
[2017-02-14 10:09] VITALS: BP 112/60
== END 2017-02-14 10:09 ==
LOC: ERH 23:35
PROVIDERS: Pediatrics
DX: R07.9 Chest pain, unspecified (principal); F10.129 Alcohol abuse with intoxication, unspecified; F32.9 Major depressive disorder, single episode, unspecified
CPT/HCPCS: 80307; 93005; 93010; G0463; G0480

== ENCOUNTER 2017-02-16 01:46 | Emergency (ER) | payer OTHER ==
[~2017-02-16] VITALS: Ht 172.7 cm; Wt 99.8 kg
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
[2017-02-16 03:51] LABS: ABSOLUTE BASOPHIL COUNT 0 /CUMM (0.0-0.2); ABSOLUTE EOSINOPHIL COUNT 0.3 /CUMM (0.0-0.7); ABSOLUTE GRANULOCYTE CT 2.4 /CUMM (1.4-6.5); ABSOLUTE LYMPH COUNT 1.8 /CUMM (1.2-3.4); ABSOLUTE MONOCYTE COUNT 0.7 /CUMM (0.10-0.60); BASOPHIL % 0.7 % (0.0-2.0); EOSINOPHIL % 5.6 % (0-5); GRANULOCYTE % 46.1 % (42.2-75.2); HEMATOCRIT 36.9 % (42-52); MEAN CORPUSCULAR HGB 30.3 PG (27.0-31.0); MEAN CORPUSCULAR HGB CONC 33.4 G/DL (33.0-37.0); MEAN CORPUSCULAR VOLUME 90.9 FL (80.0-94.0); PLATELET COUNT 126 /CUMM (130-400); RBC DISTRIBUTION WIDTH 15.3 % (11.5-14.5); RED BLOOD CELL CT 4.06 /CUMM (4.70-6.10); WHITE BLOOD CELL COUNT 5.2 /CUMM (4.8-10.8)
--- NOTE | 2017-02-16 13:43 | ED PSY CRISIS COLLATERAL NOTE ---
Collateral Note Collateral Note Family/Inform/Jennifer Contacts: Voice message left for father Taiwo Valverde .
--- NOTE | 2017-02-16 15:05 | ED PSY CRISIS COLLATERAL NOTE ---
Collateral Note Collateral Note Family/Inform/Jennifer Contacts: Phone call with father Taiwo Valverde . He says that pt is in ED all the time for SI/HI. He says he does not talk to him anymore as he has tried to help him so many times and all he does is spend money and does not want to get better.
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
[2017-02-16 16:35] VITALS: BP 140/74
[2017-02-16] MEDS ORDERED: FLUOXETINE HCL20 M2 PO (16:35)
[2017-02-16] MEDS ORDERED: LACTULOSE20 GM/30 M PO (16:35)
[2017-02-16] MEDS ORDERED: ABILIFY5 M1 PO (16:37)
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
== END 2017-02-16 15:22 ==
LOC: ERH 01:46
PROVIDERS: Pediatrics
DX: F41.9 Anxiety disorder, unspecified (principal)
CPT/HCPCS: 80307; G0463; G0480

== ENCOUNTER 2017-02-17 20:38 | Emergency (ER) | payer OTHER ==
--- NOTE | 2017-02-17 21:02 | ED PSYCHIATRIC COMPLAINT ---
History of Present Illness General Chief Complaint: Psychiatric Related Complaint Stated Complaint: BIBA OD PN PPI'S Source: patient, old records, EMS Exam Limitations: no limitations Vital Signs & Intake/Output Vital Signs & Intake/Output Vital Signs Date Time Temp Pulse Resp B/P B/P Pulse O2 O2 Flow FiO2 Mean Ox Delivery Rate 02/18 1735 128/84 05/03 1507 97.8 84 22 137/85 98 Room Air 05/ 1155 96.0 112 18 112/80 96 Room Air / 1154 Room Air / 1010 98.0 90 122/59 05/03 0819 97.0 85 16 118/62 98 Room Air 05/ 0609 98.9 82 20 111/56 96 Room Air / 0118 98.3 95 18 107/54 95 Room Air / 2242 Room Air / 2215 98.2 76 16 128/74 94 Room Air / 2045 98.1 87 16 134/80 94 Room Air Allergies Coded Allergies: shellfish derived (Severe, THROAT SWELLING 10/28/16) latex (PER PT MD TOLD HIM HE MAY BE ALLERGIC TO LATEX 10/28/16) Reconcile Medications Aripiprazole (Abilify) 5 MG TABLET 1 TAB PO DAILY DEPRESSION Fluoxetine HCl 20 MG CAPSULE 1 CAP PO DAILY DEPRESSION Lactulose 20 GRAM/30 ML SOLUTION 30 ML PO DAILY HIGH AMMONIA Triage Note: PT BIBA FOR OD ON PROTON PUMP INHIBITORS, ABILIFY AND ETOH. PT STATES HE WAS TRYING TO KILL HIMSELF BECAUSE HE HAS NOTHING TO LIVE FOR. PT DENIES HI. Triage Nurses Notes Reviewed? yes HPI: Patient was discharged from the emergency department yesterday. Patient has multiple ED visits for depression with suicidal ideations. Patient states that he took all of the Abilify that he was discharged with today in a suicide attempt. Positive alcohol. Patient denies any homicidal ideations. Patient denies taking anything else. Patient is unsure how many Abilify he took. Patient denies any hallucinations. (PAOLA BERMUDEZ,YOU Real) Past History Travel History Traveled to [place] past 21 day No Medical History Any Pertinent Medical History? 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 No (PAOLA BERMUDEZ,YOU Real) Review of Systems Review of Systems Constitutional: Reports: no symptoms. EENTM: Reports: no symptoms. Respiratory: Reports: no symptoms. Cardiovascular: Reports: no symptoms. GI: Reports: no symptoms. Genitourinary: Reports: no symptoms. Musculoskeletal: Reports: no symptoms. Skin: Reports: no symptoms. Neurological/Psychological: Reports: see HPI, depressed. Hematologic/Endocrine: Reports: no symptoms. Immunologic/Allergic: Reports: no symptoms. All Other Systems: Reviewed and Negative (PAOLA BERMUDEZ,YOU Real) Physical Exam Physical Exam General Appearance: well developed/nourished, mild distress Head: atraumatic Eyes: Bilateral: PERRL, EOMI. Ears, Nose, Throat: normal pharynx, normal ENT inspection, hearing grossly normal Neck: normal inspection, supple Respiratory: normal breath sounds Cardiovascular: regular rate/rhythm Gastrointestinal: soft, non-tender Extremities: normal range of motion Neurological/Psychiatric: no motor/sensory deficits, awake, alert, calm, oriented x 3 Appearance/Memory/Insight: appropriate appearance, appropriate insight Behavoir/Eye Contact/Speech: cooperative, normal speech, good eye contact Thoughts/Hallucinations: normal thought pattern, no apparent hallucination Skin: intact, normal color, warm/dry SAD PERSONS Done? CRISIS CONSULT OBTAINED (PAOLA BERMUDEZ,YOU Real) Progress Differential Diagnosis: drug intoxication, drug overdose, drug withdrawal, electrolyte abnormality Plan of Care: Orders Procedure Date/time Status Regular Diet 02/18 B Active Continuous Observation Monitor 02/18 1900 Active Continuous Observation Monitor 02/18 1500 Active Continuous Observation Monitor 02/18 1100 Active Continuous Observation Monitor 02/18 0700 Active Continuous Observation Monitor 02/17 2253 Active ED CRISIS PSYCH CONSULT 02/17 2253 Active URINE DRUGS OF ABUSE 02/17 2045 Complete ETHANOL 02/17 2045 Complete COMPREHENSIVE METABOLIC PANEL 02/17 2045 Complete CBC WITHOUT DIFFERENTIAL 02/17 2045 Complete Laboratory Tests 02/17/172104: Anion Gap 12, Estimated GFR > 60, BUN/Creatinine Ratio 15.0, Glucose 98, Calcium 7.8 L, Total Bilirubin 1.3, AST 84 H, ALT 62, Alkaline Phosphatase 89, Total Protein 6.4, Albumin 3.5, Globulin 2.9, Albumin/Globulin Ratio 1.2, CBC w Diff NO MAN DIFF REQ, RBC 3.80 L, MCV 90.5, MCH 30.4, RDW 15.7 H, MPV 8.6, Gran % 48.0, Lymphocytes % 36.7, Monocytes % 7.8, Eosinophils % 6.6 H, Basophils % 0.9 , Absolute Granulocytes 2.4, Absolute Lymphocytes 1.8, Absolute Monocytes 0.4, Absolute Eosinophils 0.3, Absolute Basophils 0, PUBS MCHC 33.6, Serum Alcohol > 300.0 02/17/17 2100: Urine Opiates Screen < 100.00, Methadone Screen < 40, Barbiturate Screen 92, Ur Phencyclidine Scrn < 6.00, Amphetamines Screen < 100, U Benzodiazepines Scrn < 85, Urine Cocaine Screen < 50, Urine Cannabis Screen < 5.00 3:32 PM 02/18/17 Patient signed out to me by Dr. Buckley. Pending bed search. 7:40 PM PATIENT ACCEPTED FOR TRANSFER TO [facility]. (CIPRIANO BLACK MD) Hand-Off Endorsed To: ROBBIE BUCKLEY MD Endorsed Time: 0700 Pending: consult (PAOLA BERMUDEZ,YOU Real) Hand-Off Endorsed To: CIPRIANO BLACK MD Endorsed Time: 1500 Pending: other (bed search) (ROBBIE BUCKLEY MD) Departure Departure Condition: Stable Clinical Impression Primary Impression: Suicidal ideations Referrals: NICHOLE ESCOBEDO (PCP/Family) Departure Forms: Customer Survey General Discharge Information (PAOLA BERMUDEZ,YOU Real) Departure Disposition: [facility] (CIPRIANO BLACK MD)
[2017-02-17 21:12] LABS: ABSOLUTE BASOPHIL COUNT 0 /CUMM (0.0-0.2); ABSOLUTE EOSINOPHIL COUNT 0.3 /CUMM (0.0-0.7); ABSOLUTE GRANULOCYTE CT 2.4 /CUMM (1.4-6.5); ABSOLUTE LYMPH COUNT 1.8 /CUMM (1.2-3.4); ABSOLUTE MONOCYTE COUNT 0.4 /CUMM (0.10-0.60); BASOPHIL % 0.9 % (0.0-2.0); EOSINOPHIL % 6.6 % (0-5); HEMATOCRIT 34.4 % (42-52); MEAN CORPUSCULAR HGB 30.4 PG (27.0-31.0); MEAN CORPUSCULAR HGB CONC 33.6 G/DL (33.0-37.0); MEAN CORPUSCULAR VOLUME 90.5 FL (80.0-94.0); MEAN PLATELET VOLUME 8.6 FL (7.4-10.4); PLATELET COUNT 131 /CUMM (130-400); RBC DISTRIBUTION WIDTH 15.7 % (11.5-14.5)
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
--- NOTE | 2017-02-18 15:04 | ED PSY CRISIS COLLATERAL NOTE ---
Collateral Note Collateral Note Family/Inform/Jennifer Contacts: Pt informed that his good friend Manju Marcum may be called for collateral information. She informed that pt has been stressed and overwhelmed over his current living situation as he does not get along with his roommate. She says she has never known him to be suicidal.
[2017-02-18 20:27] VITALS: BP 133/78
== END 2017-02-18 20:47 | disposition other institution (70) ==
LOC: ERH 20:38
PROVIDERS: Emergency Medicine
DX: R45.851 Suicidal ideations (principal)
CPT/HCPCS: 80307; G0463; G0480; J3101

== ENCOUNTER 2017-02-23 20:29 | Emergency (ER) | payer OTHER ==
[~2017-02-23] VITALS: Ht 172.7 cm; Wt 95.3 kg
--- NOTE | 2017-02-23 21:06 | ED GENERAL ADULT ---
History of Present Illness General Chief Complaint: General Adult Stated Complaint: " I FEEL VERY CONFUSED, COULD NOT REMEMBER THINGS" Source: patient, old records Exam Limitations: no limitations Allergies Coded Allergies: shellfish derived (Severe, THROAT SWELLING 02/23/17) latex (PER PT MD TOLD HIM HE MAY BE ALLERGIC TO LATEX 02/23/17) Reconcile Medications Aripiprazole (Abilify) 5 MG TABLET 1 TAB PO DAILY DEPRESSION Fluoxetine HCl 20 MG CAPSULE 1 CAP PO DAILY DEPRESSION Lactulose 20 GRAM/30 ML SOLUTION 30 ML PO DAILY HIGH AMMONIA Milk Thistle Seed Extract (Milk Thistle) (Unknown Strength) CAPSULE (Unknown Dose) PO DAILY SUPPLEMENT (Reported) Multivitamin (Multi-Day Vitamins) 1 EACH TABLET 1 TAB PO DAILY SUPPLEMENT ( Reported) Triage Note: PT TO TRIAGE FOR CONTINUED CONFUSION. PT STATES HIS AMMONIA IS "TOO HIGH" WITH A HX CIROSIS. PT STATES HE IS MOSTLY HAVING MEMORY ISSUES. PT WAS RENCETLY IN ED FOR +SI AND ADMITTED INTO [facility]. PT STATES HE USED SI TO BE SEEN FOR HIS CONFUSION. DENIES PHYSICAL COMPLAINTS Triage Nurses Notes Reviewed? yes HPI: Patient is a 36-year-old male presents complaining of elevated ammonia level and confusion. Patient reports that he was admitted to another hospital recently for suicidal ideation. Patient reports that his ammonia level was 80 when he entered the hospital and was 200 when he was discharged. Patient reports that he does not remember what the hospital was that he was admitted to "you sent me there". Patient reports that he was instructed to take his lactulose 4-5 times a day, is only taking it twice a day. Patient drank "a couple of beers" to try to help with his symptoms but reports that drinking the beer has not helped. Patient reports that his head feels like it is on fire. The symptoms have been worsening for several weeks. Patient has been seen at [facility] multiple times with reports of suicidal ideation and requesting alcohol detox. Patient reports he is not currently suicidal, that he has just said that in the past because he was told that if people would not help him for alcohol detox that he should tell people that he is suicidal. Patient denies illicit substance ingestion. (DARRELL JOE,MARGE) Vital Signs & Intake/Output Vital Signs & Intake/Output Vital Signs Date Time Temp Pulse Resp B/P B/P Pulse O2 O2 Flow FiO2 Mean Ox Delivery Rate 02/24 1436 98.0 73 16 133/76 98 Room Air 05/ 1031 97.8 83 20 116/63 05/09 1025 97.8 83 20 116/63 98 Room Air 05/ 0800 96.3 73 20 114/67 05/09 0759 96.3 73 20 114/67 98 Room Air 05/ 0605 97.0 84 16 102/60 05/09 0602 97.0 84 16 102/60 100 Room Air Room Air 05/ 0409 97.0 761 16 105/57 05/09 0409 96.2 76 16 105/50 97 05/ 0200 96.1 78 16 118/55 05/09 0200 96.1 78 16 118/55 98 /08 2356 96.1 65 16 128/64 05/08 2356 96.1 65 16 128/64 100 /08 2258 97.4 69 16 104/59 100 Room Air / 2200 Room Air / 2122 98.1 71 16 130/78 05/08 2043 98.1 71 16 130/78 98 Room Air Room Air ED Intake and Output 02/24 0000 02/23 1200 Intake Total 0 Output Total Balance 0 Intake, Oral 0 Patient 210 lb Weight Past History Travel History Traveled to [place] past 21 day No Medical History Any Pertinent Medical History? see below for history Neurological: migraine, TBI EENT: NONE Cardiovascular: hypertension Respiratory: NONE Gastrointestinal: pancreatitis, LOWER GIB ESOPHAGEAL VARICES UMBILICAL HERNIA Hepatic: cirrhosis, hepatic encephalopathy Renal: NONE Musculoskeletal: NONE Psychiatric: alcohol dependence, anxiety, depression Endocrine: hypothyroidism Blood Disorders: NONE Cancer(s): NONE DAY CARE PROVIDER/Reproductive: NONE History of MRSA: No History of VRE: No History of CDIFF: No Tetanus Vaccine: 10/28/16 Surgical History Surgical History: Incarcerated umbilical hernia repair, July 2008 Psychosocial History Who do you live with Patient/Self Services at Home None What is your primary language Italian Tobacco Use: Never used ETOH Use: occasional use Illicit Drug Use: cocaine (DARRELL JOE,MARGE) Family History Hx Contributory? No (HERNANDO GUERRA DO) Review of Systems Review of Systems Constitutional: Denies: chills, fever. EENTM: Reports: no symptoms. Respiratory: Denies: cough, short of breath. Cardiovascular: Denies: chest pain. GI: Reports: distention (chronic). Denies: abdominal pain. Genitourinary: Reports: no symptoms. Musculoskeletal: Reports: no symptoms. Skin: Reports: no symptoms. Neurological/Psychological: Reports: see HPI, confusion, headache. Denies: tonic-clonic seizures, unable to move lower ext, unable to move upper ext. Hematologic/Endocrine: Denies: bruising, bleeding. Immunologic/Allergic: Denies: splenectomy. (MARGE RED) Physical Exam Physical Exam General Appearance: alert, awake Head: atraumatic, normal appearance Eyes: Bilateral: PERRL, EOMI, other (dilated pupils bilaterally). 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 No CVA/TIA Diagnosis: No Severe Sepsis Present: No Septic Shock Present: No (HERNANDO GUERRA DO) Progress Initial ED EKG: none Hand-Off Endorsed To: PAOLA BERMUDEZ,YOU Real Pending: consult (crisis), other (monitor CIWA and neuro's) (MARGE RED) Plan of Care: Orders Procedure Date/time Status Regular Diet 02/24 B Active ED CRISIS PSYCH CONSULT 02/23 2344 Active CIWA 02/23 2103 Active URINE DRUG SCREEN FOR ER ONLY 02/23 2103 Complete MAGNESIUM 02/23 2103 Complete LIPASE 02/23 2103 Complete ETHANOL 02/23 2103 Complete COMPREHENSIVE METABOLIC PANEL 02/23 2103 Complete CBC WITHOUT DIFFERENTIAL 02/23 2103 Complete AMMONIA LEVEL 02/23 2103 Complete Laboratory Tests 02/23/17 2240: Urine Opiates Screen < 100.00, Methadone Screen < 40, Barbiturate Screen < 60, Ur Phencyclidine Scrn < 6.00, Amphetamines Screen < 100, U Benzodiazepines Scrn < 85, Urine Cocaine Screen < 50, Urine Cannabis Screen < 5.00 02/23/17 2130: Anion Gap 10, Estimated GFR > 60, BUN/Creatinine Ratio 13.8, Glucose 85, Calcium 9.1, Magnesium 2.2, Total Bilirubin 1.0, AST 167 H, ALT 120 H, Alkaline Phosphatase 74, Ammonia 64 H, Total Protein 6.8, Albumin 3.8, Globulin 3.0, Albumin/Globulin Ratio 1.3, Lipase 637 H, CBC w Diff NO MAN DIFF REQ, RBC 3.85 L, MCV 91.1, MCH 30.2, RDW 15.9 H, MPV 9.8, Gran % 50.9, Lymphocytes % 29.4, Monocytes % 8.6, Eosinophils % 10.4 H, Basophils % 0.7, Absolute Granulocytes 3.1, Absolute Lymphocytes 1.8, Absolute Monocytes 0.5, Absolute Eosinophils 0.6, Absolute Basophils 0, PUBS MCHC 33.2, Serum Alcohol 166.0 No asterixis on exam. Patient endorsing confusion. No apparent lethargy, slurred speech, or marked confusion on exam. Lactulose and banana bag ordered. Patient has not been compliant with his lactulose therapy at home. Will treat patient and monitor in the ED to see if ammonia level improving or any worsening of neurologic status. Discussed with Dr. Delgadillo. (MARGE RED) Hand-Off Endorsed To: HERNANDO GUERRA DO Endorsed Time: 0700 (PAOLA BERMUDEZ,YOU Real) Differential Diagnoses I considered the following diagnoses in my evaluation of the patient: [ Depression, ALCOHOL INTOXICATION, HEPATIC ENCEPHALOPATHY ] (HERNANDO GUERRA DO) Departure Departure Condition: Stable Clinical Impression Primary Impression: Alcohol intoxication Qualifiers: Complication of substance-induced condition: with unspecified complication Qualified Code: F10.929 - Alcohol use, unspecified with intoxication, unspecified Secondary Impressions: Increased ammonia level Referrals: NICHOLE ESCOBEDO (PCP/Family) Departure Forms: Customer Survey General Discharge Information (MARGE RED) Departure Disposition: STILL A PATIENT 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 I have also reviewed all the pertinent lab results and diagnostic results. I agree with the findings and the plan of care as documented in the PA's/PAPER AND PRINTS RESTORER's documentation. [X] I have reviewed the ED Record and agree with the PA's/PAPER AND PRINTS RESTORER's documentation. [] Additions or exceptions (if any) to the PAs/PAPER AND PRINTS RESTORER's note and plan are summarized below: [] (PAOLA BERMUDEZ,YOU Real) Departure Comments 02/24/17 The patient was awake alert oriented 3. He was seen and evaluated and cleared by crisis. He denied any complaints. He will follow-up as per crisis and take his medications as prescribed. 02/24/17 7:50 pm I called the patient and left a message for him to call me to make sure that he was clear on discharge plan. (HERNANDO GUERRA DO) Critical Care Note Critical Care Note Critical Care Time: non-applicable (HERNANDO GUERRA DO)
[2017-02-23 21:49] LABS: ABSOLUTE BASOPHIL COUNT 0 /CUMM (0.0-0.2); ABSOLUTE EOSINOPHIL COUNT 0.6 /CUMM (0.0-0.7); ABSOLUTE GRANULOCYTE CT 3.1 /CUMM (1.4-6.5); ABSOLUTE LYMPH COUNT 1.8 /CUMM (1.2-3.4); ABSOLUTE MONOCYTE COUNT 0.5 /CUMM (0.10-0.60); BASOPHIL % 0.7 % (0.0-2.0); EOSINOPHIL % 10.4 % (0-5); GRANULOCYTE % 50.9 % (42.2-75.2); HEMATOCRIT 35.1 % (42-52); MEAN CORPUSCULAR HGB 30.2 PG (27.0-31.0); MEAN CORPUSCULAR HGB CONC 33.2 G/DL (33.0-37.0); MEAN CORPUSCULAR VOLUME 91.1 FL (80.0-94.0); MEAN PLATELET VOLUME 9.8 FL (7.4-10.4); RBC DISTRIBUTION WIDTH 15.9 % (11.5-14.5); RED BLOOD CELL CT 3.85 /CUMM (4.70-6.10); WHITE BLOOD CELL COUNT 6.2 /CUMM (4.8-10.8)
[2017-02-23 21:58] LABS: PLATELET COUNT 132 /CUMM (130-400)
[2017-02-23] MEDS ORDERED: MULTI-DAY VITA1 EACH PO (22:14)
[2017-02-23] MEDS ORDERED: MILK THISTLE200 M1 PO (22:15)
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
--- NOTE | 2017-02-24 12:32 | ED PSY CRISIS COLLATERAL NOTE ---
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 Marquita will have Jennifer review and call back for an appointment time if accepted. 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
[2017-02-24 14:36] VITALS: BP 133/76
== END 2017-02-24 14:39 ==
LOC: ERH 20:29
PROVIDERS: Physician Assistant
DX: F10.129 Alcohol abuse with intoxication, unspecified (principal); E72.20 Disorder of urea cycle metabolism, unspecified
CPT/HCPCS: 80307; 96374; G0463; G0480; J7060

== ENCOUNTER 2017-05-05 09:45 | Emergency (ER) | payer OTHER ==
[~2017-05-05] VITALS: Ht 172.7 cm; Wt 93.0 kg
[~2017-05-05 09:45] MED LIST changes: +MILK THISTLE150 M1 PO; +MULTI-DAY VITA1 EACH PO
--- NOTE | 2017-05-05 10:54 | ED UPPER/LOWER EXTREMITY COMPL ---
History of Present Illness General Chief Complaint: Lower Extremity Injury Stated Complaint: R KNEE INJURY Source: patient Exam Limitations: no limitations Vital Signs & Intake/Output Vital Signs & Intake/Output Vital Signs Date Time Temp Pulse Resp B/P B/P Pulse O2 O2 Flow FiO2 Mean Ox Delivery Rate 05/05 1154 97.0 85 22 140/80 98 Room Air 05/05 0950 98.0 96 20 119/70 98 Room Air Allergies Coded Allergies: shellfish derived (Severe, THROAT SWELLING 02/23/17) latex (PER PT MD TOLD HIM HE MAY BE ALLERGIC TO LATEX 02/23/17) Reconcile Medications Aripiprazole (Abilify) 5 MG TABLET 1 TAB PO DAILY DEPRESSION Fluoxetine HCl 20 MG CAPSULE 1 CAP PO DAILY DEPRESSION Milk Thistle 150 MG CAPSULE 1 CAP PO DAILY SUPPLEMENT (Reported) Multivitamin (Multi-Day Vitamins) 1 EACH TABLET 1 TAB PO DAILY SUPPLEMENT ( Reported) Naproxen (Naprosyn) 500 MG TABLET 1 TAB PO BID PRN PAIN/INFLAMMATION Triage Note: PT TO ED C/O RIGHT KNEE PAIN SINCE THIS AM. WAS WALKING HIS DOG AND GOT PULLED BY THE DOG AND FELT PAIN TO RIGHT KNEE. HAS NOT TAKEN OTC MEDS. DECLINING MEDS IN TRIAGE. PT STATES "I TOOK A COUPLE SHOTS TO TAKE THE PAIN AWAY". PT AMBULATORY IN AND OUT OF TRIAGE. Triage Nurses Notes Reviewed? yes Onset: Gradual Duration: day(s): (1) Timing: remote history Severity: moderate Pain/Injury Location: Right: Knee. Method of Injury: fall Modifying Factors: Improves With: immobilization. Worsens With: movement. HPI: Patient is a 36-year-old male presenting to the emergency department with chief complaint of right knee pain that started this morning. A history of chronic knee pain but reports that he was walking his dog this morning and he got pulled down to the ground and landed directly on the knee. No head injury. No LOC. Tried taking a few shots of alcohol to help with the pain without relief. Denies any numbness or tingling. No radiation of pain. Denies any calf pain. Denies any other injuries with the fall. Walking seems to make the pain worse nothing seems to make it better. (THEE JOE,JAMIE) Past History Travel History Traveled to [place] past 21 day No Medical History Any Pertinent Medical History? 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 No (JAMIE STAUFFER) Review of Systems Review of Systems Constitutional: Reports: no symptoms. Comments Review of systems: See HPI, All other systems negative. Constitutional, no chills fever or weight loss HEENT: No visual changes no sore throat no congestion Cardiovascular: No chest pain ,palpitation Skin, no jaundice no rashes Respiratory: No dyspnea cough sputum or hemoptysis GI: No nausea no vomiting : No dysuria No hematuria Muscle skeletal: no back pain, no neck pain, Neurologic: No numbness NO TINGLING Immunology: No splenectomy or history of AIDS (JAMIE STAUFFER) Physical Exam Physical Exam General Appearance: well developed/nourished, no apparent distress, alert, awake , comfortable Comments: Well-developed well-nourished person in no acute distress HEENT:. Pupils equally round and reactive to light and accommodation. Nose is atraumatic. Neck: Normal inspection Back: Nontender, full range of motion. Cardiovascular: Pedal pulses are 2+ bilaterally. Respiratory: No respiratory distress. Speaking in clear sentences. Extremity: No edema, no calf tenderness to palpation, normal and equal pulses. Tenderness to palpation over the superior aspect of the right patella. Patella appears stable to palpation. No surrounding edema or erythema or warmth to palpation over the right knee. Pain with right knee extension and approximately 170. No pain with right patellar flexion. Full range of motion of right foot, right ankle. No tenderness to palpation over the right side. Able to perform straight leg raise on the right lower portion muco-difficulty. Pedal pulses are 2+ bilaterally. Negative anterior and posterior drawer test. No pain with Blayne's. Negative valgus and varus stress. Neuro: Alert oriented x3, motor and sensory intact enlarged ovaries bilaterally. Skin: No appreciable rash on exposed skin, skin is warm and dry. Psych: Mood and affect is normal, memory and judgment is normal. (JAMIE STAUFFER) Progress Differential Diagnosis: contusion, dislocation, fracture, sprain, tendon injury Plan of Care: Orders Procedure Date/time Status Durable Medical Equipment 05/05 1154 Active Diagnostic Imaging: Viewed by Me: Radiology Read. Discussed w/RAD: Radiology Read. Radiology Impression: PATIENT: VITA LOYD PRESENT AGE: 36 PATIENT ACCOUNT NO: [id number] : 79 LOCATION: [facility] ORDERING PHYSICIAN: JAMIE JOE SERVICE DATE: 05/05/17 EXAM TYPE: RAD - XRY-KNEE COMPLETE RIGHT EXAMINATION: XR KNEE, RIGHT CLINICAL INFORMATION: Status post fall. Right knee pain. COMPARISON: Right femur x-rays of 12/09/2009. TECHNIQUE: Four views of the right knee. FINDINGS: Bones and soft tissues are normal. No fracture or joint effusion. Alignment is anatomic. Joint spaces are well maintained. No abnormal soft tissue calcification. IMPRESSION: No evidence of fracture or dislocation. Unremarkable examination of the right knee. DICTATED BY: DELTA LOPEZ MD DATE/TIME DICTATED:05/05/171141 TECHNICAL SALES ADVISOR:HOLDEN DATE/TIME TRANSCRIBED:05/05/171141 CONFIDENTIAL, DO NOT COPY WITHOUT APPROPRIATE AUTHORIZATION. Comments: Declined pain medication on arrival. Patient will fracture to rule out any acute fracture. No obvious signs of trauma. Patient informed of x-ray results. He'll follow-up with or so if symptoms persist. May need MRI. Placed in knee immobilizer and given crutches. He'll be started on naproxen. (JAMIE STAUFFER) Departure Departure Time of Disposition: 1150 Disposition: HOME OR SELF CARE Condition: Stable Clinical Impression Primary Impression: Knee sprain Qualifiers: Encounter type: initial encounter Involved ligament of knee: unspecified ligament Laterality: right Qualified Code: S83.91XA - Sprain of unspecified site of right knee, initial encounter Referrals: NICHOLE ESCOBEDO (PCP/Family) LAMIN BERMUDEZ,JERRICA Hong Additional Instructions: Follow-up with orthopedic if symptoms persist. Rest ice and elevate your knee as much as possible. Wear knee immobilizer to help with support. Take naproxen as prescribed to help with pain and swelling. Departure Forms: Customer Survey General Discharge Information Prescriptions: Current Visit Scripts Naproxen (Naprosyn) 1 TAB PO BID PRN PAIN/INFLAMMATION #20 TAB (JAMIE STAUFFER) PA/ROCKET ASSEMBLY OPERATOR Co-Sign Statement Statement: ED Attending supervision documentation- [] I saw and evaluated the patient. I have also reviewed all the pertinent lab results and diagnostic results. I agree with the findings and the plan of care as documented in the PA's/ROCKET ASSEMBLY OPERATOR's documentation. [X] I have reviewed the ED Record and agree with the PA's/ROCKET ASSEMBLY OPERATOR's documentation. [] Additions or exceptions (if any) to the PAs/ROCKET ASSEMBLY OPERATOR's note and plan are summarized below: [] (HERNANDO GUERRA DO) Procedures Splinting Location: RIGHT KNEE Manual Alignment Performed: No Pre-Made Type: knee imobilizer Splint: KNEE IMMOBILIZER Splint Applied By: splint applied by other (NURSING) Pre-Proc Neuro Vasc Exam: normal Post-Proc Neuro Vasc Exam: normal Progress: TOLERATED PROCEDURE WELL. (JAMIE STAUFFER)
--- NOTE | 2017-05-05 11:47 | RADIOLOGY REPORT ---
EXAMINATION: XR KNEE, RIGHT CLINICAL INFORMATION: Status post fall. Right knee pain. COMPARISON: Right femur x-rays of 12/09/2009. TECHNIQUE: Four views of the right knee. FINDINGS: Bones and soft tissues are normal. No fracture or joint effusion. Alignment is anatomic. Joint spaces are well maintained. No abnormal soft tissue calcification. IMPRESSION: No evidence of fracture or dislocation. Unremarkable examination of the right knee.
[2017-05-05] MEDS ORDERED: NAPROSYN500 M1 PO (11:53)
[2017-05-05 11:54] VITALS: BP 140/80
== END 2017-05-05 12:03 ==
LOC: ERH 09:45
DX: S83.91XA Sprain of unspecified site of right knee, initial encounter (principal); W19.XXXA Unspecified fall, initial encounter; Y93.K1 Activity, walking an animal; Y92.9 Unspecified place or not applicable
CPT/HCPCS: 73562-RT

== ENCOUNTER 2018-01-19 11:50 | Inpatient (IN) | payer OTHER ==
[~2018-01-19] VITALS: Ht 172.7 cm; Wt 79.9 kg
[~2018-01-19 11:50] MED LIST changes: +CYCLOBENZAPRINE10 M1 PO; +ESCITALOPRAM OX20 MG; +FLUOXETINE HCL10 M2 PO; +FOLIC ACID1 M1 PO; +IBUPROFEN600 M1 PO; +KETOROLAC TROME10 M1 PO; +MEDROL4 M2 PO; +MILK THISTLE175 M1 PO; +MULTI-DAY PLUS1 EACH PO; -MULTI-DAY VITA1 EACH PO; +NAPROSYN500 M1 PO
[2018-01-19 13:14] LABS: ABSOLUTE BASOPHIL COUNT 0 /CUMM (0.0-0.2); ABSOLUTE EOSINOPHIL COUNT 0.3 /CUMM (0.0-0.7); ABSOLUTE GRANULOCYTE CT 2.1 /CUMM (1.4-6.5); ABSOLUTE MONOCYTE COUNT 0.4 /CUMM (0.10-0.60); BASOPHIL % 0.8 % (0.0-2.0); EOSINOPHIL % 8.6 % (0-5); GRANULOCYTE % 54.3 % (42.2-75.2); HEMATOCRIT 40.3 % (42-52); MEAN CORPUSCULAR HGB 26.6 PG (27.0-31.0); MEAN CORPUSCULAR VOLUME 80.8 FL (80.0-94.0); MEAN PLATELET VOLUME 10.2 FL (7.4-10.4); PLATELET COUNT 150 /CUMM (130-400); RBC DISTRIBUTION WIDTH 17.5 % (11.5-14.5); RED BLOOD CELL CT 4.99 /CUMM (4.70-6.10); WHITE BLOOD CELL COUNT 3.9 /CUMM (4.8-10.8)
[2018-01-19 13:23] LABS: PT 14.3 SEC (9.4-12.5); PTT 36 SEC (25-37)
--- NOTE | 2018-01-19 14:03 | RADIOLOGY REPORT ---
EXAMINATION: XR PORTABLE CHEST CLINICAL INFORMATION: Weakness COMPARISON: Chest x-rays of 02/14/2017, 07/19/2015 and 05/14/2013. TECHNIQUE: Portable frontal view of the chest was obtained. FINDINGS: The cardiomediastinal silhouette is normal. No abnormal tracheal deviation. The lungs are normally and symmetrically expanded. The lungs are clear. No pleural effusions or pneumothorax. The osseous structures and visualized upper abdomen are unremarkable. IMPRESSION: No acute pulmonary process. Essentially unremarkable examination.
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
[2018-01-19 16:45] VITALS: BP 148/100
[2018-01-19 17:00] VITALS: BP 142/100
[2018-01-19 18:00] VITALS: BP 142/96
[2018-01-19 21:20] VITALS: BP 114/68
[2018-01-20 06:50] VITALS: BP 130/96
[2018-01-20 08:00] VITALS: BP 130/96
[2018-01-20 08:12] LABS: ABSOLUTE BASOPHIL COUNT 0 /CUMM (0.0-0.2); ABSOLUTE EOSINOPHIL COUNT 0.2 /CUMM (0.0-0.7); ABSOLUTE GRANULOCYTE CT 1.2 /CUMM (1.4-6.5); ABSOLUTE LYMPH COUNT 1.1 /CUMM (1.2-3.4); ABSOLUTE MONOCYTE COUNT 0.5 /CUMM (0.10-0.60); RBC DISTRIBUTION WIDTH 17.4 % (11.5-14.5)
--- NOTE | 2018-01-20 08:37 | PN- Housestaff ---
Kemal BERMUDEZ,Rosamaria 01/20/18 0837: Subjective Follow-up For: Hepatic encephalopathy Subjective: Patient seen and examined. On clinical improvement. Offers no complaint. wants to be discharged home SOON alert oriented 3 no confusion noted -We will advance diet. Patient has been evaluated by PT and will go home with a rolling walker. Neurosurgery was also consulted who did not plan any acute intervention. Review of Systems Constitutional: Reports: see HPI. Objective Last 24 Hrs of Vital Signs/I&O Vital Signs Date Time Temp Pulse Resp B/P B/P Pulse O2 O2 Flow FiO2 Mean Ox Delivery Rate 01/20 1600 98.0 90 18 108/68 04 1358 98.0 90 18 108/68 97 Room Air 01/20 0800 97.8 79 20 130/96 01/20 0650 97.8 79 20 130/96 100 Room Air 01/19 2120 97.7 85 18 114/68 99 / 1800 98.7 88 18 142/96 Intake & Output 01/20 1600 01/20 0800 01/20 0000 Intake Total 960 1660 800 Output Total 750 550 250 Balance 210 1110 550 Intake, IV 360 1600 800 Intake, Oral 600 60 Number 0 0 Bowel Movements Output, Urine 750 550 250 Patient 176 lb 173 lb Weight Weight Bed scale Bed scale Measurement Method Physical Exam General Appearance: Alert, Oriented X3, Cooperative, No Acute Distress Cardiovascular: Normal S1, Normal S2 Lungs: Normal Air Movement Abdomen: Normal Bowel Sounds, Soft, No Tenderness Current Medications: Current Medications Sig/Zafar Start time Last Medication Dose Route Stop Time Status Admin Acetaminophen 325 MG Q6P PRN 01/19 1500 AC 01/19 PO 1746 Aripiprazole 5 MG QPM 01/19 2200 AC 01/19 PO 2108 Cyclobenzaprine HCl 10 MG 4 TIMES/DAY PRN 01/20 1430 AC 01/20 PO 1629 Enoxaparin Sodium 40 MG DAILY 01/19 1450 AC 01/20 SC 0850 Fluoxetine HCl 10 MG 1700 01/19 1700 AC 01/20 PO 1629 Folic Acid 1 MG DAILY 01/19 1605 AC 01/20 PO 0850 Lactated Ringer's 1,000 ML .Q5H / 1615 DC 01/20 IV 0549 Lactulose 20 GM BID 01/19 2200 AC 01/20 PO 0850 Lorazepam 0 Q1 NEEDED PRN 01/19 1615 AC IV Multivitamins 1 TAB DAILY 01/19 1605 AC 01/20 PO 1001 Oxycodone HCl 5 MG Q4 HRS NEEDED PRN 01/19 1900 AC 01/20 PO 1629 Patient Medication 1 ED ONE ONE 01/20 1045 DC Teaching ED 01/20 1046 Potassium Chloride 40 MEQ ONCE ONE 01/20 0945 DC 01/20 PO 01/20 0946 1001 Thiamine HCl 100 MG DAILY 01/19 1605 AC 01/20 PO 0850 Last 24 Hrs of Lab/Ronen Results Last 24 Hrs of Labs/Mics: Laboratory Tests 01/20/18 0654: Anion Gap 12, Estimated GFR > 60, BUN/Creatinine Ratio 15.0, Total Bilirubin 1.9 H, Direct Bilirubin 0.8 H, AST 30, ALT 25, Alkaline Phosphatase 49, Total Protein 6.4, Albumin 3.2 L, CBC w Diff NO MAN DIFF REQ, RBC 4.17 L, MCV 80.8, MCH 27.1, MCHC 33.5, RDW 17.4 H, MPV 10.6 H, Gran % 39.6 L, Lymphocytes % 35.1, Monocytes % 16.9 H, Eosinophils % 7.5 H, Basophils % 0.9, Absolute Granulocytes 1.2 L, Absolute Lymphocytes 1.1 L, Absolute Monocytes 0.5, Absolute Eosinophils 0.2, Absolute Basophils 0 Assessment/Plan Assessment: The patient is a 37-year-old male with past medical history of alcoholic cirrhosis, ascites s/p status post hepato-splenic shunt(as per old records), history of esophageal varices with GI bleed and banding in 2012, pancreatitis, hypothyroidism, depression and C6 fracture s/p surgery in 12/2017. The patient was brought to [facility] ED on 01/19 by his mother for evaluation of confusion. Vitals on presentation WNL Pertinent labs on presentation leukopenia 3.9, anemia H/H 13/40 platelet count 150, lactic acidosis 2.2 total bilirubin 1.7. Ammonia 163, mildly elevated lipase at 468 In ED patient received lactulose and he was admitted to general medicine for further evaluation and treatment of following condition #Altered Mental status Most likely expression of her mental status will be hepatic encephalopathy in consideration of elevated ammonia levels and patient's noncompliance to actulose Inconsideration to hepatic encephalopathy he would be a grade 1 with mild confusion on presentation -Continue lactulose increased to 3 times a day titrate up to 2-3 soft bowel movements per day -Monitor fever and WBC call for any source of infection -Avoid excessive use of narcotics #Alcoholic liver disease/cirrhosis Patient has diagnosis of alcoholic cirrhosis and has been evaluated by GI previously. He has hyperbilirubinemia, leukopenica and coagulopathy. He scored 8.6 points on maddrey's function indicating good prognosis -Monitor for alcohol withdrawal seizures -Continue thiamine folate and multivitamin supplementation -Quantitative Research Analyst on alcohol abstinence -Social work consult -Follow-up on discharge #Epigastric tenderness Patient denies any fever or abdominal pain however on examination did have some epigastric tenderness patient has mildly elevated lipase as well. There is a possibility of mild pancreatitis. -Continue to monitor for any signs of pancreatitis -Diet has been advanced to full liquids which patient has tolerated well and is requesting regular diet #Leucopenia Most likely secondary to bone marrow suppression secondary to alcohol abuse disorder No bands present no obvious source of infection patient does not appear to be septic chest x-ray clear -Continue to monitor fever and WBC count #Mild Anemia H/H 13/40 Likely secondary to alcohol abuse -Continue to monitor #Hyperbilirubinemia Most likely secondary to alcoholic liver disease -Continue to monitor LFTs, WBC count, and fever #Lactic acidosis- Resolved In setting of alcoholic liver disease/hepatic encephalopathy. no obvious source of infection present #History of cervical surgery in December 2017 See HPI, he does not have any neurological deficit on examination however we will get in touch with neuro surgery as as at the time of discharge patient was having paresthesia -Neurosurgery consult appreciated advised to continue neck collar and Flexeril -Continue neck collar -Adequate analgesia try to avoid narcotics -PT evaluation, clear to go home with walker #Mental health Continue patient home medications of Abilify and fluoxetine History of multiple admissions secondary to suicidal ideation -Will benefit from psychiatric evaluation Diet with protein restriction/DVT prophylaxis alps only in setting of elevated INR/FC Problem List: 1. HEPATIC ENCEPHALOPATHY Pain Ratin Pain Location: n/a Pain Goal: Pain 4 or less Pain Plan: prn Tomorrow's Labs & Rationales: lfts Yudith Sun MD 01/20/18 1316: Attending MD Review Statement Attending Statement Attending MD Statement: examined this patient, discuss w/resident/PA/MILK PICKUP TRUCK DRIVER, agreed w/resident/PA/MILK PICKUP TRUCK DRIVER, reviewed EMR data (avail), discussed with nursing, discussed with case mgmt, amended to note Attending Assessment/Plan: Patient seen and examined. Resting comfortably and not in any acute distress. He is alert and oriented 3. According to staff this is a significant improvement in his mental status compared to presentation. He was seen by the physical therapy service and is ambulating at baseline with the aid of a walker. We have no further recommendations for him. Etiology of his altered mentation is unknown. Likely related to hepatic encephalopathy given his significantly elevated ammonia level. Patient was admits to not taking his lactulose regularly and admits that he does not have regular bowel movements even though he tells his mom he does. We did consider medication induced encephalopathy from his opiate medication however patient reports that he does not usually get confused on this medication. He reports using this medication in the past with no untoward effects. His hemoglobin level is currently at baseline. He is mildly hypokalemic today. We will supplement his potassium levels. Will monitor patient's levels overnight, his mental status remained stable he will be discharged home tomorrow. Consultation from the neurosurgical service regarding his recent neck fracture appreciated. No acute intervention is recommended. Labs show mildly elevated lipase level. He was reported to have mild abdominal tenderness yesterday which has since resolved. He is tolerating his meals. We will provide him with intravenous hydration.
[2018-01-20 08:41] LABS: BASOPHIL % 0.9 % (0.0-2.0); EOSINOPHIL % 7.5 % (0-5); GRANULOCYTE % 39.6 % (42.2-75.2); MEAN CORPUSCULAR HGB 27.1 PG (27.0-31.0); MEAN CORPUSCULAR HGB CONC 33.5 G/DL (33.0-37.0); MEAN CORPUSCULAR VOLUME 80.8 FL (80.0-94.0); MEAN PLATELET VOLUME 10.6 FL (7.4-10.4); PLATELET COUNT 126 /CUMM (130-400); RED BLOOD CELL CT 4.17 /CUMM (4.70-6.10)
[2018-01-20 08:45] LABS: HEMATOCRIT 33.7 % (42-52)
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
--- NOTE | 2018-01-20 10:49 | RADIOLOGY REPORT ---
EXAMINATION: XR CERVICAL SPINE CLINICAL INFORMATION: Status post C6 fracture. Neck pain. COMPARISON: Cervical spine films dated 07/23/2017. TECHNIQUE: Lateral view of the cervical spine was performed on 2 images. FINDINGS: Assessment is limited with the lower cervical spine including C6 and C7 being obscured by overlapping structures. There is grade 1 retrolistheses of C2 on C3, new when compared to the prior exam. Alignment of C1-C6 is otherwise normal. There may be subtle widening of the C5-C6 disc space. Prevertebral soft tissues are normal in thickness. Craniocervical junction and atlantoaxial articulations are intact. Degenerative changes as seen at the atlantoaxial articulation. No definite acute fracture of C1-C5 is seen. C6 and C7 not adequately assessed. IMPRESSION: 1. Limited study with inadequate visualization of C6 and C7. Depending on clinical circumstances, additional assessment with CT scan of the neck can be performed. 2. Questionable slight widening of the C5-C6 disc space. This may be indicative of ligamentous injury. Close clinical correlation is requested. 3. Grade 1 retrolisthesis of C2 on 3, new from prior exam, possibly due to ligamentous laxity.
[2018-01-20 13:58] VITALS: BP 108/68
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
[2018-01-20 16:00] VITALS: BP 108/68
[2018-01-20] MEDS ORDERED: LACTULOSE20 GM/30 M PO (18:10)
[2018-01-20] MEDS ORDERED: VITAMIN B-1100 MG PO (18:10)
[2018-01-20] MEDS ORDERED: OXYCODONE HCL5 M1 PO (18:10)
--- NOTE | 2018-01-20 18:15 | Patient Discharge Instructions ---
Discharge Instructions General Discharge Information You were seen/treated for: Hepatic encephalopathy Watch for these problems: Fever, shortness of breath, chest pain, palpitations, confusion Special Instructions: -Please follow-up with primary care doctor after discharge -Please follow-up with neurosurgery after discharge a referral has been provided -Please take lactulose as directed -You should be having 2-3 soft bowel movements everyday -Please make an intake appointment at [facility], . Diet Recommended Diet: Heart Healthy Activity Activity Self Limited: Yes Acute Coronary Syndrome Inclusion Criteria At DC or during hospital stay patient has or had the following: ACS DIAGNOSIS No Discharge Core Measures Meds if any: Prescribed or Continued at Discharge Meds if any: NOT Prescribed or Continued at Discharge Congestive Heart Failure Inclusion Criteria At DC or during hospital stay patient has or had the following: CHF DIAGNOSIS No Discharge Core Measures Meds if any: Prescribed or Continued at Discharge Meds if any: NOT Prescribed or Continued at Discharge Cerebrovascular accident Inclusion Criteria At DC or during hospital stay patient has or had the following: CVA/TIA Diagnosis No Discharge Core Measures Meds if any: Prescribed or Continued at Discharge Meds if any: NOT Prescribed or Continued at Discharge Venous thromboembolism Inclusion Criteria VTE Diagnosis No VTE Type NONE VTE Confirmed by (Test) NONE Discharge Core Measures - Per Current guidelines, there needs to be overlap - treatment for the first 5 days of Warfarin therapy. - If discharged on Warfarin prior to 5 days of - overlap therapy, the patient will need to be - assessed for post discharge needs including - *Post discharge parental anticoagulation - *Warfarin and/or parental anticoagulation education - *Follow up date to check INR post discharge At least 5 days overlap therapy as Inpatient No Meds if any: Prescribed or Continued at Discharge Note: Overlap Therapy is Warfarin and Anticoagulant Meds if any: NOT Prescribed or Continued at Discharge
[2018-01-20 21:40] VITALS: BP 100/60
--- NOTE | 2018-01-20 23:16 | Event Note ---
Event Note Event Note: Patient is noncompliant with his soft cervical collar. The importance of compliance was discussed at bedside, patient showed full understanding of the risks of not using the collar. He continues to not want to use it.
[2018-01-21 06:58] VITALS: BP 108/56
--- NOTE | 2018-01-21 07:21 | PN- Housestaff ---
Kemal BERMUDEZ,Rosamaria 01/21/18 0721: Subjective Follow-up For: Hepatic encephlopathy Subjective: Pt seen and examined. AOx3. offers no complains Review of Systems Constitutional: Reports: see HPI. Objective Last 24 Hrs of Vital Signs/I&O Vital Signs Date Time Temp Pulse Resp B/P B/P Pulse O2 O2 Flow FiO2 Mean Ox Delivery Rate 01/21 0658 98.0 82 18 108/56 98 01/20 2140 98.0 81 18 100/60 98 / 1600 98.0 90 18 108/68 04 1358 98.0 90 18 108/68 97 Room Air Intake & Output 01/21 1600 01/21 0800 04/ 0000 Intake Total Output Total 400 Balance -400 Output, Urine 400 Physical Exam General Appearance: Alert, Oriented X3, Cooperative Cardiovascular: Normal S1, Normal S2 Lungs: Clear to Auscultation Abdomen: Normal Bowel Sounds, Soft, No Tenderness Extremities: No Cyanosis Current Medications: Current Medications Sig/Zafar Start time Last Medication Dose Route Stop Time Status Admin Acetaminophen 325 MG Q6P PRN 01/19 1500 AC 01/19 PO 1746 Aripiprazole 5 MG QPM 01/19 2200 AC 01/20 PO 2116 Cyclobenzaprine HCl 10 MG .STK-MED ONE 01/20 1628 DC PO 01/20 1629 Cyclobenzaprine HCl 10 MG 4 TIMES/DAY PRN 01/20 1430 AC 01/20 PO 1629 Enoxaparin Sodium 40 MG DAILY 01/19 1450 AC 04 SC 0917 Fluoxetine HCl 10 MG 1700 01/19 1700 AC 01/20 PO 1629 Folic Acid 1 MG DAILY 01/19 1605 AC 01/21 PO 0917 Lactated Ringer's 1,000 ML .Q5H / 1615 DC 01/20 IV 0549 Lactulose 20 GM TID 01/20 2200 AC 01/21 PO 0917 Lactulose 20 GM BID 01/19 2200 DC 01/20 PO 0850 Lorazepam 0 Q1 NEEDED PRN 01/19 1615 AC IV Multivitamins 1 TAB DAILY 01/19 1605 AC 01/21 PO 0917 Oxycodone HCl 5 MG Q4 HRS NEEDED PRN 01/19 1900 AC 01/21 PO 0629 Patient Medication 1 ED ONE ONE 01/20 1045 DC Teaching ED 01/20 1046 Potassium Chloride 40 MEQ ONCE ONE 01/21 0915 DC 01/21 PO 01/21 0916 0917 Potassium Chloride 40 MEQ ONCE ONE 01/20 0945 DC 01/20 PO 01/20 0946 1001 Thiamine HCl 100 MG DAILY 01/19 1605 AC 01/21 PO 0917 Last 24 Hrs of Lab/Ronen Results Last 24 Hrs of Labs/Mics: Laboratory Tests 01/21/18 0720: Anion Gap 12, Estimated GFR > 60, BUN/Creatinine Ratio 15.0, Total Bilirubin 1.2 , Direct Bilirubin 0.7 H, AST 50, ALT 42, Alkaline Phosphatase 48, Total Protein 6.5, Albumin 3.1 L Assessment/Plan Assessment: The patient is a 37-year-old male with past medical history of alcoholic cirrhosis, ascites s/p status post hepato-splenic shunt(as per old records), history of esophageal varices with GI bleed and banding in 2012, pancreatitis, hypothyroidism, depression and C6 fracture s/p surgery in 12/2017. The patient was brought to [facility] on 01/19 by his mother for evaluation of confusion. Vitals on presentation WNL Pertinent labs on presentation leukopenia 3.9, anemia H/H 13/40 platelet count 150, lactic acidosis 2.2 total bilirubin 1.7. Ammonia 163, mildly elevated lipase at 468 In ED patient received lactulose and he was admitted to general medicine for further evaluation and treatment of following condition #Altered Mental status Most likely expression of her mental status will be hepatic encephalopathy in consideration of elevated ammonia levels and patient's noncompliance to lactulose Inconsideration to hepatic encephalopathy he would be a grade 1 with mild confusion on presentation -Continue lactulose increased to 3 times a day titrate up to 2-3 soft bowel movements per day -Avoid excessive use of narcotics #Alcoholic liver disease/cirrhosis Patient has diagnosis of alcoholic cirrhosis and has been evaluated by GI previously. He has hyperbilirubinemia, leukopenica and coagulopathy. 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 There is a possibility of mild pancreatitis. -indication of pancreatitis patient denies any epigastric pain at present Patient's diet has been advanced to regular #Leucopenia Most likely secondary to bone marrow suppression secondary to alcohol abuse disorder No bands present no obvious source of infection patient does not appear to be septic chest x-ray clear -Continue to monitor fever and WBC count #Mild Anemia H/H 13/40 Likely secondary to alcohol abuse -Continue to monitor #Hyperbilirubinemia Most likely secondary to alcoholic liver disease -Continue to monitor LFTs, WBC count, and fever #Lactic acidosis- Resolved In setting of alcoholic liver disease/hepatic encephalopathy. no obvious source of infection present #History of cervical surgery in December 2017 See HPI, he does not have any neurological deficit on examination however we will get in touch with neuro surgery as as at the time of discharge patient was having paresthesia -Neurosurgery consult appreciated advised to continue neck collar and Flexeril -Continue neck collar -Adequate analgesia try to avoid narcotics -PT evaluation, clear to go home with walker #Mental health -Abilify and fluoxetine has been stopped after an evaluation by psychiatry. Patient has not been taking them since June 2017 CMR has been adjusted Patient has been provided with the number to reach out to make an appointment for psychiatric follow-up History of multiple admissions secondary to suicidal ideation Diet with protein restriction/DVT prophylaxis alps only in setting of elevated INR/FC Problem List: 1. Hepatic encephalopathy 2. Alcohol abuse Pain Ratin Pain Location: neck Pain Goal: Pain 4 or less Pain Plan: prn Tomorrow's Labs & Rationales: none d/c Corinne BERMUDEZ,[facility] 01/21/18 1148: Attending MD Review Statement Attending Statement Attending MD Statement: examined this patient, discuss w/resident/PA/CHICK GRADER, agreed w/resident/PA/CHICK GRADER, reviewed EMR data (avail), discussed with nursing, discussed with case mgmt, amended to note Attending Assessment/Plan: Patient seen and examined. Resting comfortably not in any acute distress. No issues overnight. No new complaints this morning. Pain is controlled on his current regimen. He has been cleared for discharge home by the physical therapy service. He is alert oriented 3 and mentating appropriately. He is medically stable to be discharged today. He has been advised to be compliant with his lactulose therapy. Is to follow-up with his primary caregivers in the outpatient setting. Discharge recommendations have been discussed with the patient and he verbalized understanding.
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
[2018-01-21] MEDS ORDERED: OXYCODONE HCL5 M1 PO (08:35)
[2018-01-21] MEDS ORDERED: LACTULOSE20 GM/30 M PO (10:18)
[2018-01-21] MEDS ORDERED: VITAMIN B-1100 MG PO (10:18)
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
== END 2018-01-21 12:52 | disposition home health service (06) | DRG 280 ==
LOC: ERH 11:50 → 2NB 14:48 → ERHI 14:48 → ENRESERV 15:00 → ENTRNSPT 16:05 → EDTRNSPTSTS 16:07 → EDTRNSPT 16:07 → 2NB 16:19 → CMPTRNSPT 16:33 → 2NB 01-20 08:27 → ENPENDDIS 01-21 12:07 → ENTRNSPT 01-21 12:10 → EDTRNSPTSTS 01-21 12:19 → CMPTRNSPT 01-21 12:40 → 2NB 01-21 12:52
PROVIDERS: Physician Assistant Medical; Student in an Organized Health Care Education/Training Program
DX: K70.40 Alcoholic hepatic failure without coma (principal); E87.2 Acidosis; E03.9 Hypothyroidism, unspecified; F41.9 Anxiety disorder, unspecified; K70.30 Alcoholic cirrhosis of liver without ascites; E87.6 Hypokalemia; D68.4 Acquired coagulation factor deficiency; F32.9 Major depressive disorder, single episode, unspecified; Z98.890 Other specified postprocedural states; I10 Essential (primary) hypertension; F10.21 Alcohol dependence, in remission; D63.8 Anemia in other chronic diseases classified elsewhere; E80.6 Other disorders of bilirubin metabolism; R26.89 Other abnormalities of gait and mobility; Z87.891 Personal history of nicotine dependence; Z87.81 Personal history of (healed) traumatic fracture; Z91.040 Latex allergy status; Z91.013 Allergy to seafood
CPT/HCPCS: 2NSBP; 36415; 36592; 71045; 72020; 80307; 81001; 82436; 86902; 86920; 86922; 93005; 93010; 97116-GO; 97161-GP; 99233; G0480; J1650; J3490; J7120

== ENCOUNTER 2018-01-25 18:03 | Inpatient (IN) | payer OTHER ==
[~2018-01-25] VITALS: Ht 172.7 cm; Wt 81.6 kg
[~2018-01-25 18:03] MED LIST changes: +OXYCODONE HCL5 M1 PO; +VITAMIN B-1100 MG PO
[2018-01-25 19:02] LABS: ABSOLUTE BASOPHIL COUNT 0 /CUMM (0.0-0.2); ABSOLUTE EOSINOPHIL COUNT 0.3 /CUMM (0.0-0.7); ABSOLUTE GRANULOCYTE CT 2.8 /CUMM (1.4-6.5); ABSOLUTE LYMPH COUNT 1.3 /CUMM (1.2-3.4); ABSOLUTE MONOCYTE COUNT 0.6 /CUMM (0.10-0.60); BASOPHIL % 0.3 % (0.0-2.0); EOSINOPHIL % 5.9 % (0-5); GRANULOCYTE % 55.4 % (42.2-75.2); HEMATOCRIT 36.7 % (42-52); MEAN CORPUSCULAR HGB CONC 33.2 G/DL (33.0-37.0); MEAN CORPUSCULAR VOLUME 81.3 FL (80.0-94.0); MEAN PLATELET VOLUME 10.2 FL (7.4-10.4); PLATELET COUNT 149 /CUMM (130-400); RBC DISTRIBUTION WIDTH 18.1 % (11.5-14.5); RED BLOOD CELL CT 4.51 /CUMM (4.70-6.10)
[2018-01-25 19:08] LABS: WHITE BLOOD CELL COUNT 5.1 /CUMM (4.8-10.8)
--- NOTE | 2018-01-25 19:33 | ED GENERAL ADULT ---
History of Present Illness General Chief Complaint: General Adult Stated Complaint: WEAKNESS,CONFUSION,NECK PAIN,INCONTINENCE Source: family, old records Exam Limitations: confusion Vital Signs & Intake/Output Vital Signs & Intake/Output Vital Signs Date Time Temp Pulse Resp B/P B/P Pulse O2 O2 Flow FiO2 Mean Ox Delivery Rate 01/25 1830 97.4 107 18 113/76 98 Room Air Allergies Coded Allergies: shellfish derived (Severe, THROAT SWELLING 06/07/17) latex (PER PT MD TOLD HIM HE MAY BE ALLERGIC TO LATEX 06/07/17) Reconcile Medications Cyclobenzaprine HCl 10 MG TABLET 1 TAB PO 4 TIMES/DAY PRN MUSCLE SPASM Folic Acid 1 MG TABLET 1 TAB PO DAILY SUPPLEMENT (Reported) Ibuprofen 600 MG TABLET 1 TAB PO TID pain with food Lactulose 20 GRAM/30 ML SOLUTION 20 GM PO TID LIVER TITRATE UP AND DOWN TO 2-3 BOWEL MOVEMENTS PER DAY. Milk Thistle Seed Extract (Milk Thistle) 175 MG CAPSULE 1 CAP PO DAILY SUPPLEMENT (Reported) Multivitamin/Iron/Folic Acid (Multi-Day Plus Iron Tablet) 18 MG IRON-400 MCG TABLET 1 TAB PO DAILY SUPPLEMENT (Reported) Oxycodone HCl 5 MG TABLET 1 TAB PO Q4 SEVERE PAIN (Reported) Thiamine HCl (Vitamin B-1) 100 MG TABLET 1 TAB PO DAILY SUPPLEMENT . Triage Note: PT TO ER W/ MOTHER C/C 1 DAY HX OF ?SEIZURE-LIKE ACTIVITY, CONFUSION AND INCONTINENCE OF URINE. PT WAS RECENTLY ADMITTED TO FOR ELEVATED AMMONIA LEVEL AND LIVER FAILURE. PT ALERT TO PERSON AND LOCATION ONLY. Triage Nurses Notes Reviewed? yes HPI: Patient was discharged 4 days ago after an admission for hepatic cephalopathy. Family states that he was good for a day and half to 2 days before he began having increasing confusion. Patient is acting bizarrely. Patient was brought back in for reevaluation. Past History Travel History Traveled to [place] past 21 day No Medical History Any Pertinent Medical History? 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 No Review of Systems Review of Systems Constitutional: Reports: no symptoms. EENTM: Reports: no symptoms. Respiratory: Reports: no symptoms. Cardiovascular: Reports: no symptoms. GI: Reports: no symptoms. Genitourinary: Reports: no symptoms. Musculoskeletal: Reports: no symptoms. Skin: Reports: no symptoms. Neurological/Psychological: Reports: see HPI. Hematologic/Endocrine: Reports: no symptoms. Immunologic/Allergic: Reports: no symptoms. All Other Systems: Reviewed and Negative Physical Exam Physical Exam General Appearance: well developed/nourished, awake, anxious, CONFUSED Head: atraumatic, normal appearance Eyes: Bilateral: PERRL, EOMI. Ears, Nose, Throat: normal pharynx, normal ENT inspection, hearing grossly normal Neck: normal inspection, supple, full range of motion Respiratory: normal breath sounds, chest non-tender, no respiratory distress, lungs clear Cardiovascular: regular rate/rhythm, normal peripheral pulses Gastrointestinal: normal bowel sounds, soft, non-tender, no organomegaly Back: normal inspection, normal range of motion Extremities: normal inspection, normal capillary refill, normal range of motion, pedal edema Neurologic/Psych: no motor/sensory deficits, awake, alert, normal mood/affect Skin: intact, normal color, warm/dry Lymphatic: no anterior cervical carrie Core Measures ACS in differential dx? No CVA/TIA Diagnosis: No Sepsis Present: No Sepsis Focused Exam Completed? No Progress Differential Diagnoses I considered the following diagnoses in my evaluation of the patient: [Hepatic encephalopathy, electrolyte abnormality] Plan of Care: Orders Procedure Date/time Status Heart Healthy Diet 01/26 B Active LACTIC ACID 01/25 2138 Active ED Holding Orders 01/25 2010 Active Admit to inpatient 01/25 2010 Active Vital Signs 01/25 2010 Active Code Status 01/25 2010 Active URINE DRUG SCREEN FOR ER ONLY 01/25 1838 Active URINALYSIS 01/25 1838 Active TROPONIN LEVEL 01/25 1838 Complete MAGNESIUM 01/25 183 Complete LIPASE 01/25 1837 Complete LACTIC ACID 01/25 1838 Complete ETHANOL 01/25 1838 Complete COMPREHENSIVE METABOLIC PANEL 01/25 1838 Complete CBC WITHOUT DIFFERENTIAL 01/25 1838 Complete AMMONIA LEVEL 01/25 1838 Complete Current Medications Sig/Zafar Start time Last Medication Dose Stop Time Status Admin Magnesium Sulfate 1 GM ONCE ONE 01/25 1945 AC (Mag Sulfate in D5) 01/26 2344 Dextrose/Water 100 ML (D5W) Sodium Chloride 1,000 ML BOLUS ONE 01/25 1945 AC 01/25 (Normal Saline 0.9%) 01/25 Laboratory Tests 01/25/18 1840: Anion Gap 15, Estimated GFR > 60, BUN/Creatinine Ratio 18.8, Glucose 103 H, Lactic Acid 2.3 H, Calcium 9.8, Magnesium 1.5 L, Total Bilirubin 1.4 H, AST 33, ALT 27, Alkaline Phosphatase 59, Ammonia 194 H, Troponin I < 0.01, Total Protein 7.2, Albumin 4.0, Globulin 3.2, Albumin/Globulin Ratio 1.3, Lipase 262, CBC w Diff NO MAN DIFF REQ, RBC 4.51 L, MCV 81.3, MCH 27.0, MCHC 33.2, RDW 18.1 H, MPV 10.2, Gran % 55.4, Lymphocytes % 25.8, Monocytes % 12.6 H, Eosinophils % 5.9 H, Basophils % 0.3, Absolute Granulocytes 2.8, Absolute Lymphocytes 1.3, Absolute Monocytes 0.6, Absolute Eosinophils 0.3, Absolute Basophils 0, Serum Alcohol < 10.0 Initial ED EKG: none Departure Departure Disposition: STILL A PATIENT Condition: Guarded Clinical Impression Primary Impression: Hepatic encephalopathy Secondary Impressions: Hypomagnesemia Referrals: Janelle Hernandez (PCP/Family) Departure Forms: Customer Survey General Discharge Information Admission Note Spoke With: Jayson Suárez MD Documentation of Exam: Documentation of any treatments & extenuating circumstances including Concerns Regarding Discharge (functional status, medication knowledge or non-compliance, living conditions, etc.) that warrant an admission rather than observation: [ LACTULOSE, MAGNESIUM REPLACEMENT, GI CONSULTATIONO] Critical Care Note Critical Care Note Critical Care Time: non-applicable
[2018-01-25] MEDS ORDERED: PANTOPRAZOLE SO40 M1 PO (20:33)
[2018-01-25] MEDS ORDERED: ALDACTONE25 MG PO (20:34)
[2018-01-25] MEDS ORDERED: GABAPENTIN300 M2 PO (20:34)
[2018-01-25] MEDS ORDERED: POTASSIUM CHLO20 ME2 PO (20:35)
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
[2018-01-25 23:09] VITALS: BP 131/71
--- NOTE | 2018-01-25 23:59 | CT SCAN REPORT ---
EXAMINATION: CT HEAD WITHOUT CONTRAST CLINICAL INFORMATION: History of encephalopathy. Multiple falls. COMPARISON: 06/29/2017 TECHNIQUE: Contiguous axial imaging was performed from the skull base to vertex without intravenous contrast. DLP: 729 mGy-cm. FINDINGS: There is no evidence of acute intracranial hemorrhage or territorial infarction. No abnormal mass effect or midline shift is seen. Breen to white matter differentiation is well preserved. No extra-axial fluid collections are identified. No hydrocephalus. No significant volume loss. There is no abnormal attenuation within the brain parenchyma. The osseous structures and soft tissues are normal. The mastoid air cells and visualized portions of the paranasal sinuses are well aerated. IMPRESSION: No acute intracranial pathology.
[2018-01-26] MEDS ORDERED: LASIX40 M1 PO (02:34)
[2018-01-26 05:37] LABS: ABSOLUTE BASOPHIL COUNT 0 /CUMM (0.0-0.2); ABSOLUTE EOSINOPHIL COUNT 0.2 /CUMM (0.0-0.7); ABSOLUTE GRANULOCYTE CT 1.7 /CUMM (1.4-6.5); ABSOLUTE LYMPH COUNT 1.1 /CUMM (1.2-3.4); ABSOLUTE MONOCYTE COUNT 0.4 /CUMM (0.10-0.60); BASOPHIL % 0.8 % (0.0-2.0); EOSINOPHIL % 7.2 % (0-5); HEMATOCRIT 35.8 % (42-52); MEAN CORPUSCULAR HGB 26.4 PG (27.0-31.0); MEAN CORPUSCULAR HGB CONC 32.2 G/DL (33.0-37.0); MEAN CORPUSCULAR VOLUME 81.8 FL (80.0-94.0); MEAN PLATELET VOLUME 10.1 FL (7.4-10.4); PLATELET COUNT 132 /CUMM (130-400); RBC DISTRIBUTION WIDTH 17.9 % (11.5-14.5); RED BLOOD CELL CT 4.37 /CUMM (4.70-6.10); WHITE BLOOD CELL COUNT 3.5 /CUMM (4.8-10.8)
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
[2018-01-26 08:48] VITALS: BP 131/62
--- NOTE | 2018-01-26 13:52 | PN- Att Addend ---
Attending Addendum Attending Brief Note Patient seen and examined. I also had an extensive conversation with the patient's mother. Patient presents again with an acute confusional state. Had similar presentation to the hospital last week. Confusion was presumed to be secondary to hepatic encephalopathy and he improved promptly during the last hospitalization. He was seen by physical therapy for unsteady gait and was cleared for discharge home. He was discharged last week however mother states that following his discharge is unsteady gait did become worse. She reports episodes of patient getting up and then collapsing to the ground. She reports that he has been crawling around the house due to weakness. She also reports periods of confusion on and off for the patient. Yesterday he was attempting to crawl out of the house, when his mother asked where he was going he stated that he had somewhat to go. She convinced him to get into the car and brought him to the hospital for evaluation. She reports some occasional right he is lethargic she denies any overt somnolence or difficulty around them. She reports that she has been compliant with administrating his lactulose but states she is unaware if patient is having any bowel movements as she does not going to the bathroom with him. In the emergency room he was found afebrile hemodynamically stable. He was confused and not cooperative. Ammonia level was elevated. He was hydrated overnight and provided with lactulose. This morning we found the patient doing bedside rounding alert and oriented 3. He was conversant appropriately. Neurologic examination was only significant for our of 4/5 bilateral lower extremities. He also had hyperreflexia bilateral lower extremities. There were no other significant neurologic findings. Sensation is intact globally. It is noted that nursing staff reports patient was ambulating unassisted back and forth the commode this morning in the emergency room. Patient denies any dysuria or abdominal pain. Denies any urinary or fecal incontinence. Laboratory data reviewed. He has mildly elevated bilirubin. Transaminases are within normal limits. Hypokalemia of 3.1. Hemoglobin level is stable. He has no leukocytosis. Head CT shows no acute intracranial process. Problems: 1. Acute confusional state; presumed to be secondary to hepatic encephalopathy. Promptly resolved overnight. 2. Bilateral lower extremity weakness; patient has recent history of cervical spine fracture. 3. Alcoholic cirrhosis. 4. C6 fracture. Plan: -Continue lactulose therapy 3 times a day. Continue rifaximin. -Neuro watch every shift. -Physical therapy consultation. Patient will likely benefit from discharge to shelter facility for short-term rehabilitation. Mother states that she is finding it very difficult to care for him at home.
[2018-01-26 16:06] VITALS: BP 117/72
[2018-01-26 16:08] VITALS: BP 117/72
[2018-01-26 17:45] VITALS: BP 110/70
[2018-01-26 23:10] VITALS: BP 127/72
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
[2018-01-27 06:54] VITALS: BP 120/78
[2018-01-27 11:47] LABS: ABSOLUTE BASOPHIL COUNT 0 /CUMM (0.0-0.2); ABSOLUTE EOSINOPHIL COUNT 0.2 /CUMM (0.0-0.7); ABSOLUTE GRANULOCYTE CT 1.6 /CUMM (1.4-6.5); ABSOLUTE MONOCYTE COUNT 0.6 /CUMM (0.10-0.60); BASOPHIL % 0.4 % (0.0-2.0); GRANULOCYTE % 47.2 % (42.2-75.2); HEMATOCRIT 32.4 % (42-52); MEAN CORPUSCULAR HGB 26.7 PG (27.0-31.0); MEAN CORPUSCULAR HGB CONC 32.8 G/DL (33.0-37.0); MEAN CORPUSCULAR VOLUME 81.3 FL (80.0-94.0); MEAN PLATELET VOLUME 10.1 FL (7.4-10.4); PLATELET COUNT 126 /CUMM (130-400); RED BLOOD CELL CT 3.99 /CUMM (4.70-6.10); WHITE BLOOD CELL COUNT 3.5 /CUMM (4.8-10.8)
[2018-01-27 14:55] VITALS: BP 138/80
[2018-01-27 21:59] VITALS: BP 110/60
[2018-01-28 06:32] VITALS: BP 114/68
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
--- NOTE | 2018-01-28 07:36 | Patient Discharge Instructions ---
Discharge Instructions General Discharge Information You were seen/treated for: Hepatic encephalopathy Watch for these problems: Severe confusion, dizziness, impaired balance, or worsening of any other symptoms. Special Instructions: 1. PLEASE TAKE HYDROCORTISONE DIRECTED. 2. PLEASE F/U WITH DR MORGAN IN 2 WEEKS. 3. YOU HAVE PARTIAL ADRENAL INSUFFICIENCY, PLEASE LET YOUR SURGEON IN CASE OF SURGERY, YOU WILL NEED STRESS DOSE OF STEROIDS. 4. PLEASE F/U WITH YOUR PCP UNPON DISCHARGE. 5. Please DONT DRINK ALCOHOL, THIS IS OF SPECIAL IMPROTANCE. Diet Continue normal diet: No Recommended Diet: Heart Healthy Activity Full Activity/No Limits: No Activity Self Limited: Yes Acute Coronary Syndrome Inclusion Criteria At DC or during hospital stay patient has or had the following: ACS DIAGNOSIS No Discharge Core Measures Meds if any: Prescribed or Continued at Discharge Meds if any: NOT Prescribed or Continued at Discharge Congestive Heart Failure Inclusion Criteria At DC or during hospital stay patient has or had the following: CHF DIAGNOSIS No Discharge Core Measures Meds if any: Prescribed or Continued at Discharge Meds if any: NOT Prescribed or Continued at Discharge Cerebrovascular accident Inclusion Criteria At DC or during hospital stay patient has or had the following: CVA/TIA Diagnosis No Discharge Core Measures Meds if any: Prescribed or Continued at Discharge Meds if any: NOT Prescribed or Continued at Discharge Venous thromboembolism Inclusion Criteria VTE Diagnosis No VTE Type NONE VTE Confirmed by (Test) NONE Discharge Core Measures - Per Current guidelines, there needs to be overlap - treatment for the first 5 days of Warfarin therapy. - If discharged on Warfarin prior to 5 days of - overlap therapy, the patient will need to be - assessed for post discharge needs including - *Post discharge parental anticoagulation - *Warfarin and/or parental anticoagulation education - *Follow up date to check INR post discharge At least 5 days overlap therapy as Inpatient No Meds if any: Prescribed or Continued at Discharge Note: Overlap Therapy is Warfarin and Anticoagulant Meds if any: NOT Prescribed or Continued at Discharge
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
[2018-01-28 14:45] VITALS: BP 110/66
--- NOTE | 2018-01-28 16:23 | MRI REPORT ---
EXAMINATION: MR CERVICAL SPINE WITHOUT CONTRAST CLINICAL INFORMATION: Posttraumatic cervical myelopathy. Worsening weakness. Prior fusion surgery. Prior C6 fracture reported. COMPARISON: X-ray dated 01/20/2018. TECHNIQUE: MRI of the cervical spine without contrast was obtained using routine sequences. The study is limited due to patient motion artifacts. FINDINGS: There is a laminectomy defect at the C6 level with heterogeneous soft tissue in the operative bed. A trace amount fluid is also present in the midline at the C6 level. There is focal T2 hyperintense signal abnormality filling the central aspect of the cord at C6-C7. No additional areas of cord signal abnormality or clearly seen. No epidural fluid collection is identified. The marrow signal is homogeneous. There are minimal annular bulges at C2-C3 and C3-C4. Mild endplate spurring also visible at the C3-C4 level. No large disc protrusions are visible. The craniovertebral junction and imaged portions of the brain parenchyma appear normal. The prevertebral soft tissues appear normal. IMPRESSION: Limited study with motion artifacts. Postsurgical changes at the C6 level with a wide laminectomy defect. Indeterminate signal abnormality within the cord at C6-C7 which may be posttraumatic in etiology and represent myelomalacia or a focal syrinx.
[2018-01-28 22:00] VITALS: BP 111/55
[2018-01-29 06:34] VITALS: BP 98/60
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
[2018-01-29 14:27] VITALS: BP 96/62
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
[2018-01-29 21:30] VITALS: BP 122/80
[2018-01-30 07:03] VITALS: BP 120/74
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
--- NOTE | 2018-01-30 10:23 | Discharge Summary ---
Visit Information Visit Dates Admission Date: 01/25/18 Discharge Date: 01/30/18 Hospital Course Course Attending Physician: Yudith Sun MD Primary Care Physician: Janelle Hernandez Allergies: Coded Allergies: shellfish derived (Severe, THROAT SWELLING 06/07/17) latex (PER PT MD TOLD HIM HE MAY BE ALLERGIC TO LATEX 06/07/17) Discharge Instructions General Discharge Information Follow-Up Instructions/Appts: 1. PLEASE TAKE HYDROCORTISONE DIRECTED. 2. PLEASE F/U WITH DR MORGAN IN 2 WEEKS. 3. YOU HAVE PARTIAL ADRENAL INSUFFICIENCY, PLEASE LET YOUR SURGEON IN CASE OF SURGERY, YOU WILL NEED STRESS DOSE OF STEROIDS. 4. PLEASE F/U WITH YOUR PCP UNPON DISCHARGE. 5. Please DONT DRINK ALCOHOL, THIS IS OF SPECIAL IMPROTANCE. 6. Please note some of your medications changed, please follow with your PCP regarding continuation of them. Medications at Discharge Discharge Medications: Stop taking the following medications: Furosemide (Lasix) 40 MG TABLET ORAL DAILY Continue taking these medications: Oxycodone HCl (Oxycodone HCl) 5 MG TABLET 1 Tablet ORAL Every 4 hours Qty = 30 Comments: Last Taken:01/30/18 Time:10:00 AM Thiamine HCl (Vitamin B-1) 100 MG TABLET 1 Tablet ORAL DAILY Qty = 30 Instructions: . Comments: Last Taken:01/30/18 Time:11:00 Lactulose (Lactulose) 20 GRAM/30 ML SOLUTION 20 Gram ORAL THREE TIMES DAILY Qty = 2 Instructions: TITRATE UP AND DOWN TO 2-3 BOWEL MOVEMENTS PER DAY. Comments: Last Taken:01/30/18 Time:1:15 PM Pantoprazole Sodium (Pantoprazole Sodium) 40 MG TABLET.DR 1 Tablet ORAL DAILY Qty = 60 Spironolactone (Aldactone) 25 MG TABLET 0.5 Tablet ORAL DAILY Gabapentin (Gabapentin) 300 MG CAPSULE 1 Capsule ORAL TWICE DAILY Potassium Chloride (Potassium Chloride) 20 MEQ TAB.ER.PRT 1 Tablet ORAL DAILY Comments: Last Taken:01/30/18 Time:10:06 AM Start taking the following new medications: Hydrocortisone (Hydrocortisone) 5 MG TABLET 1 Tablet ORAL SEE INSTRUCTIONS Qty = 90 No Refills Instructions: TAKE 2 TABS (10 MG) AT 8 AM IN THE MORNING TAKE 1 TAB( 5 MG) AT 4 PM IN THE EVENING. Rifaximin (Xifaxan) 550 MG TABLET 1 Tablet ORAL TWICE DAILY Qty = 60 No Refills Oxycodone HCl (Oxycodone HCl) 5 MG TABLET 1 Tablet ORAL Every 4 hours as needed for PAIN Qty = 25 No Refills Copies To: Janelle Hernandez; Gaurav BERMUDEZ,Lita
[2018-01-30] MEDS ORDERED: XIFAXAN550 M1 PO (12:16)
[2018-01-30] MEDS ORDERED: HYDROCORTISONE5 M1 PO ×2 (12:20→12:21)
[2018-01-30] MEDS ORDERED: OXYCODONE HCL5 M1 PO (12:35)
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
== END 2018-01-30 14:11 | disposition home health service (06) | DRG 280 ==
LOC: ERH 18:03 → 2NB 20:10 → ERHI 20:10 → CANRESERV 21:16 → ENRESERV 21:16 → EDBEDREQ 21:31 → ERHI 01-26 08:35 → ENRESERV 01-26 15:04 → ENTRNSPT 01-26 16:47 → EDTRNSPTSTS 01-26 17:05 → EDTRNSPT 01-26 17:05 → 2NB 01-26 17:06 → CMPTRNSPT 01-26 17:18 → ENPENDDIS 01-30 12:47 → 2NB 01-30 14:11
PROVIDERS: Internal Medicine; Physician Assistant Medical; Radiology Vascular & Interventional Radiology
DX: K70.40 Alcoholic hepatic failure without coma (principal); K70.30 Alcoholic cirrhosis of liver without ascites; I10 Essential (primary) hypertension; E03.9 Hypothyroidism, unspecified; E87.2 Acidosis; S14.106D Unspecified injury at C6 level of cervical spinal cord, subsequent encounter; E83.42 Hypomagnesemia; G95.89 Other specified diseases of spinal cord; F32.9 Major depressive disorder, single episode, unspecified; F41.9 Anxiety disorder, unspecified; R26.89 Other abnormalities of gait and mobility; S12.500D Unspecified displaced fracture of sixth cervical vertebra, subsequent encounter for fracture with routine healing; V89.2XXD Person injured in unspecified motor-vehicle accident, traffic, subsequent encounter; Z91.013 Allergy to seafood; F10.20 Alcohol dependence, uncomplicated; Y90.0 Blood alcohol level of less than 20 mg/100 ml; Z91.040 Latex allergy status; I95.1 Orthostatic hypotension; Z98.1 Arthrodesis status; Z87.891 Personal history of nicotine dependence
CPT/HCPCS: 2NBSP; 72141; 87184; ERO; 36415; 36592; 80307; 81001; 82436; 84403; 87040; 87086; 87147; 96365; 96366; G0480; J0696; J0834; J1650

== ENCOUNTER 2018-02-23 09:44 | Inpatient (IN) | payer OTHER ==
[~2018-02-23] VITALS: Ht 172.7 cm; Wt 79.0 kg
[~2018-02-23 09:44] MED LIST changes: +ALDACTONE25 MG PO; +GABAPENTIN300 M2 PO; +HYDROCORTISONE5 M1 PO; +LASIX40 M1 PO; +PANTOPRAZOLE SO40 M1 PO; +POTASSIUM CHLO20 ME2 PO; +XIFAXAN550 M1 PO
[2018-02-23 10:24] LABS: ABSOLUTE BASOPHIL COUNT 0 /CUMM (0.0-0.2); ABSOLUTE EOSINOPHIL COUNT 0.2 /CUMM (0.0-0.7); ABSOLUTE GRANULOCYTE CT 1.8 /CUMM (1.4-6.5); ABSOLUTE LYMPH COUNT 1.2 /CUMM (1.2-3.4); ABSOLUTE MONOCYTE COUNT 0.5 /CUMM (0.10-0.60); BASOPHIL % 0.9 % (0.0-2.0); GRANULOCYTE % 48.2 % (42.2-75.2); HEMATOCRIT 34.1 % (42-52); MEAN CORPUSCULAR HGB 27.6 PG (27.0-31.0); MEAN CORPUSCULAR HGB CONC 33.3 G/DL (33.0-37.0); MEAN CORPUSCULAR VOLUME 82.8 FL (80.0-94.0); MEAN PLATELET VOLUME 9.4 FL (7.4-10.4); PLATELET COUNT 154 /CUMM (130-400); RED BLOOD CELL CT 4.11 /CUMM (4.70-6.10); WHITE BLOOD CELL COUNT 3.8 /CUMM (4.8-10.8)
--- NOTE | 2018-02-23 11:45 | ED AMS/SEIZURE/WEAK/DIZZY ---
History of Present Illness General Chief Complaint: General Adult Stated Complaint: UNABLE TO URINATE, CONFUSED PER MOM Source: patient Exam Limitations: not alert/orientated Vital Signs & Intake/Output Vital Signs & Intake/Output Vital Signs Date Time Temp Pulse Resp B/P B/P Pulse O2 O2 Flow FiO2 Mean Ox Delivery Rate 02/23 1357 97.6 96 18 143/91 100 Room Air 02/23 1126 97.7 88 16 140/84 100 Room Air 02/23 0959 96.0 98 22 100/54 98 Room Air Allergies Coded Allergies: shellfish derived (Severe, THROAT SWELLING 06/07/17) latex (PER PT MD TOLD HIM HE MAY BE ALLERGIC TO LATEX 06/07/17) Reconcile Medications Gabapentin 300 MG CAPSULE 1 CAP PO BID NEUROPATHY (Reported) Hydrocortisone 5 MG TABLET 1 TAB PO SEE ADMIN CRITERIA ADRENAL INSUFFICIENCY TAKE 2 TABS (10 MG) AT 8 AM IN THE MORNING TAKE 1 TAB( 5 MG) AT 4 PM IN THE EVENING. Lactulose 20 GRAM/30 ML SOLUTION 20 GM PO TID LIVER TITRATE UP AND DOWN TO 2-3 BOWEL MOVEMENTS PER DAY. Oxycodone HCl 5 MG TABLET 1 TAB PO Q4 SEVERE PAIN (Reported) Oxycodone HCl 5 MG TABLET 1 TAB PO Q4 PRN PAIN Pantoprazole Sodium 40 MG TABLET.DR 1 TAB PO DAILY GERD (Reported) Potassium Chloride 20 MEQ TAB.ER.PRT 1 TAB PO DAILY POTASSIUM (Reported) Rifaximin (Xifaxan) 550 MG TABLET 1 TAB PO BID ENCEPHALOPATHY Spironolactone (Aldactone) 25 MG TABLET 0.5 TAB PO DAILY UNK (Reported) Thiamine HCl (Vitamin B-1) 100 MG TABLET 1 TAB PO DAILY SUPPLEMENT . Triage Note: PER MOM INCREASED CONFUSION USUALLY AMMONIA LEVEL IS ELEVATED Triage Nurses Notes Reviewed? yes Onset: Abrupt Duration: day(s): Timing: recent history HPI: 37 year old male with history of cirrhosis presents to the emergency room for trouble urination. He states this occurred yesterday and he has never had this happen before. He had the urge to go but was only able to dribble out urine and felt he did not completely void. The last time he was able to completely void was two days ago. He has nausea and confusion today. He denies any penile pain, pain with urination, blood in is urine, fevers, abdominal pain, recent sexual activity. He states his mom wants his ammonia levels to be checked as well. His last drink was months ago. (Terrance Barber) Past History Travel History Traveled to [place] past 21 day No Medical History Any Pertinent Medical History? see below for history Neurological: TBI EENT: NONE Cardiovascular: hypertension Respiratory: NONE Gastrointestinal: pancreatitis, LOWER GIB ESOPHAGEAL VARICES UMBILICAL HERNIA Hepatic: cirrhosis, hepatic encephalopathy Renal: NONE Musculoskeletal: NONE Psychiatric: alcohol dependence, anxiety, depression Endocrine: hypothyroidism Blood Disorders: NONE Cancer(s): NONE HORSE SHOER/Reproductive: NONE History of MRSA: No History of VRE: No History of CDIFF: No Influenza Vaccine: 07/19/17 Tetanus Vaccine: 10/28/16 Surgical History Surgical History: spinal fusion, Incarcerated umbilical hernia repair, July 2008 Psychosocial History Who do you live with Friend Services at Home None What is your primary language Greek Tobacco Use: Quit >30 days ago Family History Family History, If Any: Relation not specified for: *No pertinent family history Hx Contributory? No (Terrance Barber) Review of Systems Review of Systems Constitutional: Reports: no symptoms. EENTM: Reports: no symptoms. Respiratory: Reports: no symptoms. Cardiovascular: Reports: no symptoms. GI: Reports: see HPI. Genitourinary: Reports: see HPI. Musculoskeletal: Reports: no symptoms. Skin: Reports: no symptoms. Neurological/Psychological: Reports: see HPI. Hematologic/Endocrine: Reports: no symptoms. Immunologic/Allergic: Reports: no symptoms. All Other Systems: Reviewed and Negative (Terrance Barber) Physical Exam Physical Exam General Appearance: well developed/nourished, no apparent distress Head: atraumatic, normal appearance Eyes: Bilateral: normal appearance. Ears, Nose, Throat: normal pharynx Neck: normal inspection, full range of motion Respiratory: normal breath sounds Cardiovascular: regular rate/rhythm Gastrointestinal: normal bowel sounds, non-tender Back: normal inspection Neurologic/Psych: alert and oriented to person and place Skin: intact Core Measures ACS in differential dx? No CVA/TIA Diagnosis No Sepsis Present: No Sepsis Focused Exam Completed? No (Terrance Barber) Progress Differential Diagnosis: alcohol intoxication, anemia, dehydration, encephalitis, electrolyte imbalance, intracranial mass/tumor, UTI/pyelo Plan of Care: Orders Procedure Date/time Status CBC WITHOUT DIFFERENTIAL 02/24 600 Active BASIC ELECTROLYTES PLUS BUN&CR 02/24 600 Active Regular Diet 02/23 D Active Patient Data 02/23 1644 Active US-LIMITED ABDOMEN 02/23 1455 Active PARTIAL THROMBOPLASTIN TIME 02/23 1453 Active PROTHROMBIN TIME 02/23 1453 Active Pathway - chart 02/23 1438 Active House Staff 02/23 1438 Active Code Status 02/[address] HEAD WO IV CONTRAST 02/23 1434 Active Admit to inpatient 02/23 1327 Active Vital Signs 02/23 1327 Active Code Status 02/23 1327 Complete Add-on Test (ER Only) 02/23 1144 Active EKG 02/23 1144 Active Intake & Output 02/23 1114 Active ETHANOL 02/23 1010 Complete URINE DRUGS OF ABUSE 02/23 0959 Complete URINALYSIS 02/23 0959 Complete AMMONIA 02/23 0959 Complete LIPASE 02/23 0959 Complete COMPREHENSIVE METABOLIC PANEL 02/23 0959 Complete CBC WITHOUT DIFFERENTIAL 02/23 0959 Complete AMYLASE 02/23 0959 Complete XRY-CHEST XRAY, TWO VIEWS 02/23 UNK Active VTE Mechanical Prophylaxis 02/23 UNK Active Intake & Output 02/23 UNK Active Hemoccult 02/23 UNK Active CIWA 02/23 UNK Active Current Medications Sig/Zafar Start time Last Medication Dose Stop Time Status Admin Enoxaparin Sodium 40 MG DAILY 02/24 900 AC (Lovenox) Hydrocortisone 10 MG QAM 02/24 900 AC (Hydrocortisone) Spironolactone 12.5 MG DAILY 02/24 900 AC (Aldactone) Thiamine HCl 100 MG DAILY 02/24 900 AC (Vitamin B1) Omeprazole 40 MG DAILY AC 02/24 700 AC (Prilosec) Hydrocortisone 5 MG QPM 02/23 2100 AC (Hydrocortisone) Lactulose 20 GM TID 02/23 2100 AC (Enulose 20GM/30ML) Sodium Chloride 1,000 ML .[id number] 02/23 1445 AC (Normal Saline 0.9%) 02/24 0404 Laboratory Tests 02/23/18 1302: Urine Opiates Screen 794.00, Methadone Screen < 40, Barbiturate Screen < 60, Ur Phencyclidine Scrn < 6.00, Amphetamines Screen < 100, U Benzodiazepines Scrn < 85, Urine Cocaine Screen < 50, Urine Cannabis Screen < 5.00, Urinalysis MANY H, Urine Color YEL, Urine Clarity CLDY H, Urine pH 7.0, Ur Specific [place] 1.020, Urine Protein NEG, Urine Ketones NEG, Urine Nitrite NEG, Urine Bilirubin NEG, Urine Urobilinogen 1.0, Ur Leukocyte Esterase NEG, Ur Microscopic SEDIMENT EXAMINED, Urine RBC RARE, Urine WBC RARE, Urine Mucus MOD H, Urine Hemoglobin NEG, Urine Glucose NEG 02/23/18 1010: Anion Gap 14, Estimated GFR > 60, BUN/Creatinine Ratio 36.0 H, Glucose 86, Calcium 9.6, Total Bilirubin 1.3, AST 36, ALT 38, Alkaline Phosphatase 52, Ammonia 181 H, Total Protein 6.9, Albumin 4.1, Globulin 2.8, Albumin/Globulin Ratio 1.5, Amylase 96, Lipase 280, CBC w Diff NO MAN DIFF REQ, RBC 4.11 L, MCV 82.8, MCH 27.6, MCHC 33.3, RDW 21.0 H, MPV 9.4, Gran % 48.2, Lymphocytes % 31.9 , Monocytes % 14.0 H, Eosinophils % 5.0, Basophils % 0.9, Absolute Granulocytes 1.8, Absolute Lymphocytes 1.2, Absolute Monocytes 0.5, Absolute Eosinophils 0.2, Absolute Basophils 0, Serum Alcohol < 10.0 02/23/18 1004: Serum Alcohol Cancelled Initial ED EKG: normal sinus rhythm, rate (80) (Terrance Barber) Departure Departure Disposition: STILL A PATIENT Condition: Stable Clinical Impression Primary Impression: Hepatic encephalopathy Referrals: Janelle Hernandez (PCP/Family) Departure Forms: Customer Survey General Discharge Information Admission Note Spoke With: Molina Perry MD Documentation of Exam: Documentation of any treatments & extenuating circumstances including Concerns Regarding Discharge (functional status, medication knowledge or non-compliance, living conditions, etc.) that warrant an admission rather than observation: Lactulose GI consultation. Repeat labs. Medically not safe for discharge. Increased confusion. (Terrance Barber) PA/DISTRIBUTION ANALYST Co-Sign Statement Statement: ED Attending supervision documentation- [X] I saw and evaluated the patient. I have also reviewed all the pertinent lab results and diagnostic results. I agree with the findings and the plan of care as documented in the PA's/DISTRIBUTION ANALYST's documentation. [] I have reviewed the ED Record and agree with the PA's/DISTRIBUTION ANALYST's documentation. [] Additions or exceptions (if any) to the PAs/DISTRIBUTION ANALYST's note and plan are summarized below: [] I've seen and personally examined the patient and I agree with the PAs evaluation. He is somewhat confused on my exam. No acute distress. (Guzman NEGRETE,Roderick Mackey)
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
--- NOTE | 2018-02-23 17:06 | ULTRASOUND REPORT ---
EXAMINATION: US ABDOMEN LIMITED CLINICAL INFORMATION: History of cirrhosis. Ascites check. COMPARISON: Limited abdominal ultrasound dated 10/31/2016. CT scan of the abdomen and pelvis dated 07/18/2015. TECHNIQUE: Real-time imaging of the 4 quadrants of the abdomen. FINDINGS: FREE FLUID: None. OTHER: Incidentally seen is an enlarged spleen, measuring 15.2 cm longitudinally. On prior CT scan from 07/18/2015, spleen measured 14.5 cm longitudinally. IMPRESSION: 1. No evidence of ascites. 2. Splenomegaly.
--- NOTE | 2018-02-23 17:07 | RADIOLOGY REPORT ---
EXAMINATION: XR CHEST CLINICAL INFORMATION: Confusion. COMPARISON: Chest x-ray dated 01/19/2018 and 02/14/2017. TECHNIQUE: 2 views of the chest were obtained. FINDINGS: The cardiomediastinal silhouette is within normal limits in size. Lungs bilaterally are symmetrically expanded and clear. No focal consolidation, effusion or pneumothorax is seen. Mild convex left thoracic curvature is seen. IMPRESSION: Unremarkable examination.
--- NOTE | 2018-02-23 17:12 | CT SCAN REPORT ---
EXAMINATION: CT HEAD WITHOUT CONTRAST CLINICAL INFORMATION: Rule out cerebral edema. Presumptive diagnosis of hepatic encephalopathy. COMPARISON: CT scan of the head dated 01/25/2018, 06/29/2017. TECHNIQUE: Contiguous axial imaging was performed from the skull base to vertex without intravenous administration of contrast. DLP: 617.03 mGy-cm FINDINGS: There is no evidence of acute intracranial hemorrhage or territorial infarction. No abnormal mass effect or midline shift is seen. Breen to white matter differentiation is well preserved. No extra-axial fluid collections are identified. The ventricles are normal in size. There is no abnormal attenuation within the brain parenchyma. The osseous structures and soft tissues are normal. The mastoid air cells and visualized portions of the paranasal sinuses are well aerated. IMPRESSION: No acute intracranial pathology.
[2018-02-23 17:40] VITALS: BP 150/90
[2018-02-23 17:48] VITALS: BP 150/90
[2018-02-23 21:57] VITALS: BP 140/90
[2018-02-23 22:56] LABS: PT 15.7 SEC (9.4-12.5); PTT 37 SEC (25-37)
[2018-02-24] VITALS: BP 140/90
[2018-02-24 02:00] VITALS: BP 140/90
[2018-02-24 04:00] VITALS: BP 140/90
--- NOTE | 2018-02-24 05:01 | PN- Housestaff ---
Subjective Follow-up For: Hepatic encephalopathy Complaints: no complaints Subjective: Patient seen and examined at bedside. no overnight events. Patient is alert, oriented 3. Denies abdominal pain, urinary retention, confusion, weakness. Patient didn't have a bowel movement yet. He says he is complaint with his medication at home. Review of Systems Constitutional: Reports: no symptoms, see HPI. Objective Last 24 Hrs of Vital Signs/I&O Vital Signs Date Time Temp Pulse Resp B/P B/P Pulse O2 O2 Flow FiO2 Mean Ox Delivery Rate 02/25 800 Room Air 02/24 0600 98.1 76 20 134/76 02/24 0600 98.1 76 20 134/76 100 Room Air / 0400 99.0 84 20 140/90 / 0200 99.3 84 20 140/90 / 0000 99.3 84 20 140/90 / 2157 99.3 84 20 140/90 98 /08 1748 98.0 80 18 150/90 /08 1740 98.0 80 18 150/90 97 Room Air 02/23 1357 97.6 96 18 143/91 100 Room Air 02/23 1126 97.7 88 16 140/84 100 Room Air Intake & Output 02/24 1600 02/24 0800 05/ 0000 Intake Total 1080 900 Output Total 1250 400 Balance -170 500 Intake, IV 600 450 Intake, Oral 480 450 Output, Urine 1250 400 Patient 174 lb 175 lb 180 lb Weight Weight Standing Scale Measurement Method Physical Exam General Appearance: Alert, Oriented X3, Cooperative Cardiovascular: Regular Rate, Normal S1, Normal S2, No Murmurs Lungs: Normal Air Movement Abdomen: Soft, No Tenderness, No Hepatospenomegaly Neurological: Strength at 5/5 X4 Ext, Normal Tone, Sensation Intact, Cranial Nerves 3-12 NL Current Medications: Current Medications Sig/Zafar Start time Last Medication Dose Route Stop Time Status Admin Enoxaparin Sodium 40 MG DAILY 02/24 900 AC 02/24 SC 928 Hydrocortisone 10 MG QAM 02/24 900 AC 02/24 PO 927 Hydrocortisone 5 MG QPM 02/23 2100 AC 02/23 PO 2031 Lactulose 20 GM TID 02/23 2100 AC 02/24 PO 927 Lactulose 0 .STK-MED ONE 02/23 1304 DC PO Lactulose 20 GM ONCE ONE 02/23 1245 DC 02/23 PO 02/23 1246 1304 Omeprazole 40 MG DAILY AC 02/24 0700 AC 02/24 PO 0543 Ondansetron HCl 4 MG ONCE ONE 02/24 0245 DC 02/24 IV 02/24 0246 0302 Oxycodone HCl 5 MG Q6PRN PRN 02/24 0915 AC 02/24 PO 0928 Oxycodone HCl 5 MG ONCE ONE 02/23 2215 SC 02/23 PO 02/23 2216 2220 Oxycodone HCl 5 MG Q8P PRN 02/23 1615 SC 02/24 PO 0146 Rifaximin 550 MG BID 02/24 1035 AC PO Sodium Chloride 1,000 ML .[id number] 02/23 1445 SC 02/24 IV 02/24 0404 0305 Spironolactone 12.5 MG DAILY 02/24 900 AC 02/24 PO 28 Thiamine HCl 100 MG DAILY 02/24 900 AC 02/24 PO 927 Last 24 Hrs of Lab/Ronen Results Last 24 Hrs of Labs/Mics: Laboratory Tests 02/24/18 0616: Anion Gap 12, Estimated GFR > 60, BUN/Creatinine Ratio 20.0, Total Bilirubin 1.3 , Direct Bilirubin 0.4, AST 31, ALT 34, Alkaline Phosphatase 55, Total Protein 6.1 L, Albumin 3.3 L, CBC w Diff NO MAN DIFF REQ, RBC 3.86 L, MCV 82.4, MCH 27.8, MCHC 33.7, RDW 20.8 H, MPV 10.1, Gran % 46.0, Lymphocytes % 36.8, Monocytes % 11.3 H, Eosinophils % 5.2 H, Basophils % 0.7, Absolute Granulocytes 1.7, Absolute Lymphocytes 1.3, Absolute Monocytes 0.4, Absolute Eosinophils 0.2, Absolute Basophils 0 02/24/18 0600: Alpha Fetoprotein Pending 02/23/18 2130: PT 15.7 H, INR 1.44 H, APTT 37 02/23/18 1302: Urine Opiates Screen 794.00, Methadone Screen < 40, Barbiturate Screen < 60, Ur Phencyclidine Scrn < 6.00, Amphetamines Screen < 100, U Benzodiazepines Scrn < 85, Urine Cocaine Screen < 50, Urine Cannabis Screen < 5.00, Urinalysis MANY H, Urine Color YEL, Urine Clarity CLDY H, Urine pH 7.0, Ur Specific [place] 1.020, Urine Protein NEG, Urine Ketones NEG, Urine Nitrite NEG, Urine Bilirubin NEG, Urine Urobilinogen 1.0, Ur Leukocyte Esterase NEG, Ur Microscopic SEDIMENT EXAMINED, Urine RBC RARE, Urine WBC RARE, Urine Mucus MOD H, Urine Hemoglobin NEG, Urine Glucose NEG Assessment/Plan Assessment: 37-year-old gentleman with history of cirrhosis presenting with elevated serum ammonium concentration, with no changes in behavior, no confusion or slurred speech or any disordered sleep, taking prescription medications-opiates for his cervical fracture status post repair, with no evidence of GI bleeding and no evidence of infection, no renal failure and no constipation. Assessment and plan 1. Asymptomatic hyperammonemia - General supportive care, nutritional support.Encourage suitable energy intake, nutritional consult, low-sodium as recommended by GI in the past. No protein restriction. Repeat ammonia today 146. Patient is well oriented 3. We will follow GI recommendations. His CAT scan was negative for cerebral edema, ultrasound negative for arthritis. Avoid NSAIDs and narcotics. Lactulose and rifaximin Rifaximin. Patient was seen by lead project engineer who suggested to avoid Percocet, Lasix. Outpatient GI follow-up. Add rifaximin to the bowel regimen. 2. Acute urinary retention. No urinary symptoms, check UA and urine culture- negative so far. Likely secondary to opiates. Judicious use of opiates. Patient able to urinate. 3. Adrenal insufficiency. Continue steroids. Code-full code Diet-regular diet. We will get a nutrition consult to guide him with the diet. Problem List: 1. Hepatic encephalopathy Pain Ratin Pain Location: none Pain Goal: Remain pain free Pain Plan: tylenol Tomorrow's Labs & Rationales: none
[2018-02-24 06:00] VITALS: BP 134/76
[2018-02-24 08:12] LABS: ABSOLUTE BASOPHIL COUNT 0 /CUMM (0.0-0.2); ABSOLUTE EOSINOPHIL COUNT 0.2 /CUMM (0.0-0.7); ABSOLUTE GRANULOCYTE CT 1.7 /CUMM (1.4-6.5); ABSOLUTE LYMPH COUNT 1.3 /CUMM (1.2-3.4); ABSOLUTE MONOCYTE COUNT 0.4 /CUMM (0.10-0.60); BASOPHIL % 0.7 % (0.0-2.0); EOSINOPHIL % 5.2 % (0-5); HEMATOCRIT 31.8 % (42-52); MEAN CORPUSCULAR HGB 27.8 PG (27.0-31.0); MEAN CORPUSCULAR HGB CONC 33.7 G/DL (33.0-37.0); MEAN CORPUSCULAR VOLUME 82.4 FL (80.0-94.0); MEAN PLATELET VOLUME 10.1 FL (7.4-10.4); PLATELET COUNT 137 /CUMM (130-400); RBC DISTRIBUTION WIDTH 20.8 % (11.5-14.5); RED BLOOD CELL CT 3.86 /CUMM (4.70-6.10); WHITE BLOOD CELL COUNT 3.6 /CUMM (4.8-10.8)
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
[2018-02-24 15:28] VITALS: BP 110/78
--- NOTE | 2018-02-24 15:40 | Patient Discharge Instructions ---
Discharge Instructions General Discharge Information You were seen/treated for: Hepatic encephalopathy Watch for these problems: In case of confusion, nausea, vomiting, abdominal pain please go to the nearest emergency room Special Instructions: Please follow-up with your primary care provider, log pond worker, pain management CLINIC within 1-2 weeks of discharge and let them know about your recent admission at [facility] Diet Continue normal diet: No Recommended Diet: regular diet with restricted sodium less than 2 g Activity Full Activity/No Limits: No Activity Self Limited: Yes Acute Coronary Syndrome Inclusion Criteria At DC or during hospital stay patient has or had the following: ACS DIAGNOSIS No Discharge Core Measures Meds if any: Prescribed or Continued at Discharge Meds if any: NOT Prescribed or Continued at Discharge Congestive Heart Failure Inclusion Criteria At DC or during hospital stay patient has or had the following: CHF DIAGNOSIS No Discharge Core Measures Meds if any: Prescribed or Continued at Discharge Meds if any: NOT Prescribed or Continued at Discharge Cerebrovascular accident Inclusion Criteria At DC or during hospital stay patient has or had the following: CVA/TIA Diagnosis No Discharge Core Measures Meds if any: Prescribed or Continued at Discharge Meds if any: NOT Prescribed or Continued at Discharge Venous thromboembolism Inclusion Criteria VTE Diagnosis No VTE Type NONE VTE Confirmed by (Test) NONE Discharge Core Measures - Per Current guidelines, there needs to be overlap - treatment for the first 5 days of Warfarin therapy. - If discharged on Warfarin prior to 5 days of - overlap therapy, the patient will need to be - assessed for post discharge needs including - *Post discharge parental anticoagulation - *Warfarin and/or parental anticoagulation education - *Follow up date to check INR post discharge At least 5 days overlap therapy as Inpatient No Meds if any: Prescribed or Continued at Discharge Note: Overlap Therapy is Warfarin and Anticoagulant Meds if any: NOT Prescribed or Continued at Discharge
[2018-02-24 22:49] VITALS: BP 148/70
[2018-02-25 06:20] VITALS: BP 108/64
--- NOTE | 2018-02-25 08:19 | PN- Housestaff ---
Subjective Follow-up For: Hepatic encephalopathy Subjective: Patient seen and examined at bedside. no overnight events. Patient is alert, oriented 3. Denies abdominal pain, urinary retention, confusion, weakness. Patient had 2-3 bowel movement. Review of Systems Constitutional: Reports: no symptoms, see HPI. Objective Last 24 Hrs of Vital Signs/I&O Vital Signs Date Time Temp Pulse Resp B/P B/P Pulse O2 O2 Flow FiO2 Mean Ox Delivery Rate 02/25 0800 Room Air 02/25 0620 98.8 89 20 108/64 99 Room Air 02/24 2249 98.4 100 20 148/70 98 Room Air 02/24 1528 97.8 99 20 110/78 99 Intake & Output 02/25 1600 02/25 0800 02/25 0000 Intake Total 900 Output Total Balance 900 Intake, Oral 900 Physical Exam General Appearance: Alert, Oriented X3, Cooperative, No Acute Distress Cardiovascular: Regular Rate, Normal S1, Normal S2, No Murmurs Lungs: Clear to Auscultation Abdomen: Soft, No Tenderness, No Hepatospenomegaly Neurological: Normal Speech, Strength at 5/5 X4 Ext, Normal Tone, Sensation Intact Extremities: No Cyanosis, No Edema, Normal Pulses Current Medications: Current Medications Sig/Zafar Start time Last Medication Dose Route Stop Time Status Admin Enoxaparin Sodium 40 MG DAILY 02/24 900 DCD 02/25 SC 0841 Hydrocortisone 10 MG QAM 02/24 900 DCD 02/25 PO 0840 Hydrocortisone 5 MG QPM 02/23 2100 DCD 02/24 PO 2017 Lactulose 20 GM TID 02/23 2100 DCD 02/25 PO 0841 Omeprazole 40 MG DAILY AC 02/24 700 DCD 02/25 PO 0840 Oxycodone HCl 5 MG Q6PRN PRN 02/24 0915 DCD 02/25 PO 1044 Rifaximin 550 MG BID 02/24 1035 DCD 02/25 PO 0840 Spironolactone 12.5 MG DAILY 02/24 900 DCD 02/25 PO 0841 Thiamine HCl 100 MG DAILY 02/24 900 DCD 02/25 PO 0840 Last 24 Hrs of Lab/Ronen Results Last 24 Hrs of Labs/Mics: Laboratory Tests 02/25/18 0820: Ammonia 125 H Assessment/Plan Assessment: 37-year-old gentleman with history of cirrhosis presenting with elevated serum ammonium concentration, with no changes in behavior, no confusion or slurred speech or any disordered sleep, taking prescription medications-opiates for his cervical fracture status post repair, with no evidence of GI bleeding and no evidence of infection, no renal failure and no constipation. Assessment and plan 1. Asymptomatic hyperammonemia - General supportive care, nutritional support.Encourage suitable energy intake, low-sodium as recommended by GI in the past. No protein restriction. Repeat ammonia today 125. Patient is well oriented 3. We will follow GI recommendations. His CAT scan was negative for cerebral edema, ultrasound negative for arthritis. Avoid NSAIDs and narcotics. Lactulose and rifaximin. Patient was seen by quality assurance qa lab technician who suggested to avoid Percocet, Lasix. Outpatient GI follow -up. Discussed with his primary care physician who agrees with the plan of tapering his Percocet. Patient agrees with the plan. Patient advised to follow -up with his primary care physician as outpatient. 2. Acute urinary retention. No urinary symptoms, check UA and urine culture- negative so far. Likely secondary to opiates. Judicious use of opiates. Patient able to urinate. 3. Adrenal insufficiency. Continue steroids. Problem List: 1. Hepatic encephalopathy Pain Ratin Pain Location: none Pain Goal: Remain pain free Pain Plan: tylenol Tomorrow's Labs & Rationales: none
--- NOTE | 2018-02-25 11:02 | PN- Att Addend ---
Attending Addendum Attending Brief Note Patient seen and examined, overall doing better. Confusion is improving. Ammonia level has come down. Patient has been seen by GI and we have added Rifaximine further recommendations. We also spoke with patient's primary care doctor and recommended that patient should be on low-dose of oxycodone. This was complicated to the patient and he agrees. Patient will follow-up with her primary care doctor for further tapering of the opiates. We have also consulted nutrition and requested that did provide him and his mother that some dietary recommendations because patient has been admitted multiple times with the same issue. He is otherwise medically stable for discharge home today to follow-up with his primary doctor, GI as well as pain management as an outpatient.
== END 2018-02-25 13:09 | DRG 280 ==
LOC: ERH 09:44 → ERHI 13:27 → 2NA 13:27 → ENRESERV 13:52 → ENTRNSPT 17:00 → 2NA 17:07 → EDTRNSPT 17:07 → EDTRNSPTSTS 17:07 → 2NA 17:08 → CMPTRNSPT 17:18 → ENPENDDIS 02-25 12:25 → 2NA 02-25 13:09
PROVIDERS: Emergency Medicine; Internal Medicine Hematology & Oncology
DX: K70.40 Alcoholic hepatic failure without coma (principal); E27.40 Unspecified adrenocortical insufficiency; F10.20 Alcohol dependence, uncomplicated; I10 Essential (primary) hypertension; F41.9 Anxiety disorder, unspecified; F32.9 Major depressive disorder, single episode, unspecified; S12.500D Unspecified displaced fracture of sixth cervical vertebra, subsequent encounter for fracture with routine healing; V89.2XXD Person injured in unspecified motor-vehicle accident, traffic, subsequent encounter; R33.9 Retention of urine, unspecified; Z98.1 Arthrodesis status; Z91.040 Latex allergy status; Z91.013 Allergy to seafood
CPT/HCPCS: 2NAP; 36592; 71046; 80307; 81001; 82436; 93005; 93010; G0480; J1650; J2405

== ENCOUNTER 2018-03-12 19:35 | Emergency (ER) | payer OTHER, MEDICARE ==
[~2018-03-12] VITALS: Ht 177.8 cm; Wt 81.6 kg
--- NOTE | 2018-03-12 19:45 | ED GENERAL ADULT ---
See Addendum History of Present Illness General Chief Complaint: General Adult Stated Complaint: NECK AND BACK PAIN Source: patient, EMS, police Exam Limitations: no limitations Vital Signs & Intake/Output Vital Signs & Intake/Output Vital Signs Date Time Temp Pulse Resp B/P B/P Pulse O2 O2 Flow FiO2 Mean Ox Delivery Rate 03/13 0100 90 20 144/72 98 03/12 1958 97.8 114 18 139/76 99 Room Air Room Air ED Intake and Output 03/13 0000 03/12 1200 Intake Total 240 Output Total Balance 240 Intake, Oral 240 Patient 180 lb Weight Weight Estimated Measurement Method Allergies Coded Allergies: shellfish derived (Severe, THROAT SWELLING 06/07/17) latex (PER PT MD TOLD HIM HE MAY BE ALLERGIC TO LATEX 06/07/17) Reconcile Medications Alprazolam 0.25 MG TABLET 1 TAB PO AD PRN ANXIETY (Reported) Gabapentin 300 MG CAPSULE 1 CAP PO TID NERVE PAIN (Reported) Hydrocortisone 5 MG TABLET 1 TAB PO SEE ADMIN CRITERIA ADRENAL INSUFFICIENCY TAKE 2 TABS (10 MG) AT 8 AM IN THE MORNING TAKE 1 TAB( 5 MG) AT 4 PM IN THE EVENING. Lactulose 10 GRAM/15 ML SOLUTION 30 ML PO TID LIVER (Reported) Methocarbamol (Robaxin-750) 750 MG TABLET 1 TAB PO Q6H PRN SPASMS (Reported) Ondansetron HCl 4 MG TABLET 1 TAB PO BID PRN N/V (Reported) Oxycodone HCl 5 MG TABLET 1 TAB PO Q6 PRN PAIN (Reported) Pantoprazole Sodium 40 MG TABLET.DR 1 TAB PO DAILY GERD (Reported) Potassium Chloride 20 MEQ TAB.ER.PRT 1 TAB PO DAILY POTASSIUM (Reported) Rifaximin (Xifaxan) 550 MG TABLET 1 TAB PO BID ENCEPHALOPATHY Sennosides (Senna) 8.6 MG TABLET 1 TAB PO Q12H PRN CONSTIPATION (Reported) Spironolactone (Aldactone) 25 MG TABLET 0.5 TAB PO DAILY UNK (Reported) Thiamine HCl (Vitamin B-1) 100 MG TABLET 1 TAB PO DAILY SUPPLEMENT . Triage Nurses Notes Reviewed? yes Onset: Gradual Duration: week(s):, waxing and waning Timing: recent history Injury Environment: home Modifying Factors: Improves With: rest. Associated Symptoms: weakness HPI: 37 yo gentleman h/o neck fracture several months ago, recently moved from physical rehab to home with daily home vna and family support, presents via police. Per the police, "He is under arrest, but we can't give him his medications... he takes a lot of medications." The patient states, "I need my medications... I have a lot of pain..." He notes no new trauma. He wears a neck brace for comfort. Past History Travel History Traveled to [place] past 21 day No Medical History Any Pertinent Medical History? 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 No Review of Systems Review of Systems Constitutional: Reports: no symptoms. EENTM: Reports: no symptoms. Respiratory: Reports: no symptoms. Cardiovascular: Reports: no symptoms. GI: Reports: no symptoms. Genitourinary: Reports: no symptoms. Musculoskeletal: Reports: no symptoms. Skin: Reports: no symptoms. Neurological/Psychological: Reports: no symptoms. Hematologic/Endocrine: Reports: no symptoms. Immunologic/Allergic: Reports: no symptoms. All Other Systems: Reviewed and Negative Physical Exam Physical Exam General Appearance: well developed/nourished, no apparent distress Head: atraumatic Eyes: Bilateral: normal appearance. Ears, Nose, Throat: normal pharynx, normal ENT inspection Neck: normal inspection, supple, full range of motion Respiratory: normal breath sounds, chest non-tender, no respiratory distress, quiet respiration, lungs clear Cardiovascular: regular rate/rhythm, edema Gastrointestinal: normal bowel sounds, soft, non-tender, no organomegaly Back: muscle spasm, paracervical spasm Extremities: normal inspection Neurologic/Psych: no motor/sensory deficits, awake, alert, oriented x 3 Skin: intact, normal color, warm/dry Core Measures ACS in differential dx? No CVA/TIA Diagnosis: No Sepsis Present: No Sepsis Focused Exam Completed? No Progress Differential Diagnoses I considered the following diagnoses in my evaluation of the patient: depression, drug use vs other. Plan of Care: Orders Procedure Date/time Status Regular Diet 03/13 B Active ETHANOL 03/12 2140 Complete PT Evaluate & Treat 03/12 2037 Active CASE MANAGEMENT CONSULT 03/12 2037 Active URINE DRUG SCREEN FOR ER ONLY 03/12 2030 Active URINALYSIS 03/12 2019 Complete COMPREHENSIVE METABOLIC PANEL 03/12 2019 Complete CBC WITHOUT DIFFERENTIAL 03/12 2019 Complete Current Medications Sig/Zafar Start time Last Medication Dose Stop Time Status Admin Potassium Chloride 20 MEQ DAILY 03/13 900 UNVr (K-Dur) Spironolactone 12.5 MG DAILY 03/13 900 UNVr (Aldactone) Thiamine HCl 100 MG DAILY 03/13 900 UNVr (Vitamin B1) Alprazolam 0.25 MG DAILY NEEDED PRN 03/12 2215 AC (Xanax) 03/19 2214 Oxycodone HCl 5 MG Q6 PRN 03/12 2215 AC (Roxicodone) Gabapentin 300 MG TID 03/12 2206 UNVr (Neurontin) Rifaximin 550 MG BID 03/12 2206 UNVr 03/12 (XIFAXAN) 2311 Laboratory Tests 03/13/18 0415: Methadone Screen Pending, Barbiturate Screen Pending, Ur Phencyclidine Scrn Pending, Amphetamines Screen Pending, U Benzodiazepines Scrn Pending, Urine Cocaine Screen Pending, Urine Cannabis Screen Pending, Urine Color YEL, Urine Clarity CLEAR, Urine pH 6.0, Ur Specific [place] 1.025, Urine Protein NEG, Urine Ketones TRACE H, Urine Nitrite NEG, Urine Bilirubin NEG, Urine Urobilinogen 1.0 , Ur Leukocyte Esterase NEG, Ur Microscopic EXAM NOT REQUIRED, Urine Hemoglobin NEG, Urine Glucose NEG 03/12/182139: Anion Gap 13, Estimated GFR > 60, BUN/Creatinine Ratio 18.8, Glucose 90, Calcium 8.2 L, Total Bilirubin 0.7, AST 31, ALT 34, Alkaline Phosphatase 57, Total Protein 6.0 L, Albumin 3.2 L, Globulin 2.8, Albumin/Globulin Ratio 1.1, CBC w Diff NO MAN DIFF REQ, RBC 3.51 L, MCV 82.7, MCH 27.8, MCHC 33.6, RDW 20.0 H, MPV 8.9, Gran % 37.4 L, Lymphocytes % 45.9, Monocytes % 12.3 H, Eosinophils % 3.8, Basophils % 0.6, Absolute Granulocytes 1.5, Absolute Lymphocytes 1.8, Absolute Monocytes 0.5, Absolute Eosinophils 0.2, Absolute Basophils 0, Serum Alcohol 256.0 03/12/18 2030: Serum Alcohol Cancelled Diagnostic Imaging: Viewed by Me: Radiology Read. Discussed w/RAD: Radiology Read. Radiology Impression: PATIENT: VITA LOYD PRESENT AGE: 37 PATIENT ACCOUNT NO: [id number] : 79 LOCATION: [facility] ORDERING PHYSICIAN: Mike John MD SERVICE DATE: 03/13/18 EXAM TYPE: RAD - XRY-CERVICAL SPINE TRAUMA EXAMINATION: XR CERVICAL SPINE CLINICAL INFORMATION: Trauma. Now with neck pain. COMPARISON: Cervical spine July 23, 2017. MR cervical spine January 28, 2018 TECHNIQUE: AP. Lateral. FINDINGS: There is been resection of the posterior spinous process of C6 vertebrae. There is no acute abnormality. No fracture or subluxation. Vertebrae have normal height and alignment. No prevertebral soft tissue swelling. IMPRESSION: No acute abnormality. Postsurgical resection of the posterior spinous process of C6 vertebrae. DICTATED BY: Darrius Orantes MD DATE/TIME DICTATED:03/13/18433 SELECTOR PACKER:HOLDEN DATE/TIME TRANSCRIBED:03/13/18433 CONFIDENTIAL, DO NOT COPY WITHOUT APPROPRIATE AUTHORIZATION. <Electronically signed in Other Vendor System> SIGNED BY: Darrius Orantes MD 03/13/18440 Initial ED EKG: none Hand-Off Endorsed To: Roderick Hinds DO Endorsed Time: 0700 Pending: consult, labs Departure Departure Disposition: STILL A PATIENT Condition: Stable Clinical Impression Primary Impression: Chronic pain Referrals: Janelle Hernandez (PCP/Family) Departure Forms: Customer Survey General Discharge Information Comments 03/12/18, 21:57... case management conferred with police... pt needs safe discharge... no facility available for weekend. unable to get jung this weekend. case management to review in AM. Critical Care Note Critical Care Note Critical Care Time: non-applicable
[2018-03-12] MEDS ORDERED: SENNA8.6 M3 PO (20:17)
[2018-03-12] MEDS ORDERED: ALPRAZOLAM0.25 M1 PO (20:18)
[2018-03-12] MEDS ORDERED: ROBAXIN-750750 M1 PO (20:19)
[2018-03-12] MEDS ORDERED: LACTULOSE10 GM/153 PO (20:22)
[2018-03-12] MEDS ORDERED: ONDANSETRON HCL4 MG PO (20:23)
[2018-03-12 21:55] LABS: ABSOLUTE BASOPHIL COUNT 0 /CUMM (0.0-0.2); ABSOLUTE EOSINOPHIL COUNT 0.2 /CUMM (0.0-0.7); ABSOLUTE GRANULOCYTE CT 1.5 /CUMM (1.4-6.5); ABSOLUTE LYMPH COUNT 1.8 /CUMM (1.2-3.4); ABSOLUTE MONOCYTE COUNT 0.5 /CUMM (0.10-0.60); BASOPHIL % 0.6 % (0.0-2.0); EOSINOPHIL % 3.8 % (0-5); GRANULOCYTE % 37.4 % (42.2-75.2); MEAN CORPUSCULAR HGB 27.8 PG (27.0-31.0); MEAN CORPUSCULAR HGB CONC 33.6 G/DL (33.0-37.0); MEAN CORPUSCULAR VOLUME 82.7 FL (80.0-94.0); MEAN PLATELET VOLUME 8.9 FL (7.4-10.4); PLATELET COUNT 129 /CUMM (130-400); RED BLOOD CELL CT 3.51 /CUMM (4.70-6.10)
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
[2018-03-13 14:07] VITALS: BP 134/79
== END 2018-03-13 14:54 ==
LOC: ERH 19:35
PROVIDERS: Pediatrics
DX: G89.29 Other chronic pain (principal)
CPT/HCPCS: 72050; 80307; 81003; G0480

== ENCOUNTER 2018-03-22 18:08 | Emergency (ER) | payer OTHER, MEDICARE ==
[~2018-03-22 18:08] MED LIST changes: +ALPRAZOLAM0.25 M1 PO; +LACTULOSE10 GM/153 PO; +ONDANSETRON HCL4 MG PO; +ROBAXIN-750750 M1 PO; +SENNA8.6 M3 PO
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
[2018-03-23 06:01] VITALS: BP 119/61
== END 2018-03-23 06:02 ==
LOC: ERH 18:08
DX: M54.2 Cervicalgia (principal); F10.129 Alcohol abuse with intoxication, unspecified

== ENCOUNTER 2018-06-29 17:32 | Emergency (ER) | payer OTHER, MEDICARE ==
[~2018-06-29] VITALS: Ht 172.7 cm; Wt 72.6 kg
[~2018-06-29 17:32] MED LIST changes: +BACLOFEN10 M1 PO
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
[2018-06-29 19:18] LABS: ABSOLUTE BASOPHIL COUNT 0 /CUMM (0.0-0.2); ABSOLUTE EOSINOPHIL COUNT 0.1 /CUMM (0.0-0.7); ABSOLUTE GRANULOCYTE CT 1.6 /CUMM (1.4-6.5); ABSOLUTE LYMPH COUNT 0.8 /CUMM (1.2-3.4); ABSOLUTE MONOCYTE COUNT 0.3 /CUMM (0.10-0.60); BASOPHIL % 0.3 % (0.0-2.0); EOSINOPHIL % 4.1 % (0-5); GRANULOCYTE % 57.6 % (42.2-75.2); HEMATOCRIT 31.6 % (42-52); MEAN CORPUSCULAR HGB 26.4 PG (27.0-31.0); MEAN CORPUSCULAR VOLUME 80.2 FL (80.0-94.0); MEAN PLATELET VOLUME 9.5 FL (7.4-10.4); PLATELET COUNT 80 /CUMM (130-400); RBC DISTRIBUTION WIDTH 17.7 % (11.5-14.5); RED BLOOD CELL CT 3.94 /CUMM (4.70-6.10); WHITE BLOOD CELL COUNT 2.7 /CUMM (4.8-10.8)
[2018-06-30 11:14] VITALS: BP 122/76
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
== END 2018-06-30 11:35 ==
LOC: ERH 17:32
PROVIDERS: Student in an Organized Health Care Education/Training Program
DX: R45.851 Suicidal ideations (principal); F32.9 Major depressive disorder, single episode, unspecified; I10 Essential (primary) hypertension; K74.60 Unspecified cirrhosis of liver; K72.90 Hepatic failure, unspecified without coma; F41.9 Anxiety disorder, unspecified; F10.20 Alcohol dependence, uncomplicated
CPT/HCPCS: 80307; 81001; G0463; G0480